=== PATIENT | female | born 1945 | race Caucasian/White ===

== ENCOUNTER 2016-06-15 09:01 | Outpatient (RCR) | payer MEDICARE, OTHER ==
--- OUTSIDE RECORDS SUMMARY | 2016-03-23 13:08 | XMS REPORT | Continuity of Care Document ---
Author Author [facility] Organization [facility] Address Unknown Phone Unavailable Care Team Providers Care Connie Scratcher Name Role Phone NEMESIO CAMACHO DO PCP Insurance Providers Payer Name Policy Number Subscriber Name Relationship [employer] Medicare [id number] Katja Saldaña 18 Self / Same As Patient Comm Crossover Enter Ins Name [id number] Katja Saldaña 18 Self / Same As Patient Advance Directives Directive Response Recorded Date/Time Advance Directives No 12/16/14 3:47pm Health Care Power of Office Support Clerk No 12/16/14 3:47pm Organ Donor No 12/16/14 3:47pm Resuscitation Status Full Code 12/16/14 3:47pm Problems No known problems or medical conditions. Medications Medication Dose Route Sig Days/Qty Instructions Order Date Discontinued Date Status Amoxicillin 1 Each PO THREE TIMES A DAY 30 Qty 04/13/09 02/27/11 Discontinued Benzonatate 100 Mg PO THREE TIMES A DAY 30 Qty 04/13/09 02/27/11 Discontinued HCTZ/Valsartan 2 Each PO DAILY 02/27/11 07/01/11 Discontinued Metoprolol Succinate (Toprol Xl) 50 Mg PO BEDTIME 02/27/11 01/22/13 Discontinued Estrogens,Conjugated 0.45 Mg PO DAILY 02/27/11 07/01/11 Discontinued Furosemide (Lasix) 20 Mg PO DAILY 02/27/11 01/22/13 Discontinued Rosuvastatin Calcium 20 Mg PO BEDTIME 02/27/11 01/22/13 Discontinued Paroxetine Hcl 20 Mg PO BEDTIME 02/27/11 01/22/13 Discontinued Tramadol Hcl 50 Mg PO EVERY 4HRS PRN 02/27/11 07/01/11 Discontinued Multivitamins 1 Tab PO DAILY 03/02/11 Active [place]-3/Dha/Epa/Fish Oil 1 Each PO TWICE A DAY 03/02/11 01/22/13 Discontinued Calcium Carbonate/Vitamin D3 1 Each PO DAILY 03/02/11 01/22/13 Discontinued Acetaminophen/Hydrocodone Bitart 1 - 2 Ea PO Q4HR PRN 40 Qty MAY TAKE 1 OR 2 TABS BY 03/03/11 07/01/11 Discontinued Valsartan 240 Mg PO DAILY 07/01/11 01/22/13 Discontinued Aspirin 81 Mg PO DAILY 07/01/11 Active Naproxen 1 Each PO TID PRN 20 Qty 10/27/12 01/22/13 Discontinued Rosuvastatin Calcium 40 Mg PO DAILY 01/22/13 Active Valsartan 320 Mg PO DAILY 01/22/13 12/16/14 Discontinued Calcitonin (Miacalcin) 1 [place] NS DAILY ALTERNATE NOSTRILS DAILY 12/16/14 Discontinued Paroxetine Hcl 20 Mg PO DAILY 01/22/13 Active Metoprolol Succinate 100 Mg PO BEDTIME 01/22/13 Active Furosemide 20 Mg PO DAILY 12/16/14 12/17/14 Discontinued Losartan/Hydrochlorothiazide 1 Tab PO DAILY 12/16/14 12/17/14 Discontinued Social History Social History Problem Response Recorded Date/Time Alcohol Use Denies Use 12/16/2014 3:29pm Recreational Drug Use No 12/16/2014 3:29pm Recent Foreign Travel No 12/16/2014 3:32pm Recent Infectious Disease Exposure No 12/16/2014 3:29pm Hospitalization with Isolation Denies 12/17/2014 9:37am Sexually Transmitted Disease No 12/16/2014 3:29pm Smoking Status Current Everyday Smoker 12/16/2014 3:43pm Do you dip or chew tobacco? No 12/16/2014 3:43pm Query Response Start Date Stop Date Smoking Status Current Everyday Smoker Hospital Discharge Instructions Patient Instructions Physician Instructions Plan of Care/Instructions/FU: Fwup 1week Activity as Tolerated: Yes Discharge Diet: Cardiac Diet Care Plan Patient Instructions:: Fwup 1week Plan of Care Discharge Date 12/17/14 9:26am Disposition 01 HOME, SELF-CARE Instructions/Education Provided Dehydration (GEN) Vertigo (ED) Forms Provided PDI Medical Prescriptions See Medications Section Referrals ORENDER,NEMESIO Melly FARLEY (Unspecified) 12/24/14 Address: [address] [place] [address] Reason(s) for Referral: 9:45AM Functional Status Query Response Date Recorded Comprehension Ability Understands Concepts December 16, 2014 8:10pm Allergies, Adverse Reactions, Alerts Allergen Type Severity Reaction Status Last Updated Oxycodone Allergy Mild Active 04/13/09 Immunizations Name Given Type Date of Pneumonia Vaccine 04/20/14 Historical Tetanus Booster (TDap) Unknown Historical Vital Signs Acute Vital Signs Vital Response Date/Time Temperature (Fahrenheit) 98.1 degrees F (97.6 - 99.5) Temperature (Calculated Celsius) 36.76836 degrees C (36.4 - 37.5) Temperature Source Temporal Pulse Rate (adult) 52 bpm (60 - 90) Respiratory Rate 18 bpm (12 - 24) O2 Sat by Pulse Oximetry 97 % (88 - 100) Blood Pressure 110/50 mm Hg Pain Pain Intensity 0 Height (Feet) 5 feet Height (Inches) 0.00 inches Height (Calculated Centimeters) 152.491663 cm Weight (Pounds) 113 pounds Weight (Ounces) 4.8 oz Weight (Calculated Grams) 44542.016 gm Weight (Calculated Kilograms) 51.591653 kilograms Calculated BMI 22.07 Results Laboratory Results Test Name Result Units Flags Reference Collection Date/Time Result Date/ Time Comments White Blood Count 6.2 10^3/uL 4.3-11.0 12/17/2014 4:07am 12/17/2014 4: 40am Red Blood Count 4.48 10^6/uL 4.35-5.85 12/17/2014 4:07am 12/17/2014 4: 40am Hemoglobin 13.3 G/DL 11.5-16.0 12/17/2014 4:07am 12/17/2014 4:40am Hematocrit 39 % 35-52 12/17/2014 4:07am 12/17/2014 4:40am Mean Corpuscular Volume 87 FL 80-99 12/17/2014 4:07am 12/17/2014 4: 40am Mean Corpuscular Hemoglobin 30 PG 25-34 12/17/2014 4:12/17/2014 4: 40am Mean Corpuscular Hemoglobin Concent 34 G/DL 32-36 12/17/2014 4: 4:40am Red Cell Distribution Width 13.3 % 10.0-14.5 12/17/2014 4:2014 4:40am Platelet Count 369 10^3/uL 130-400 12/17/2014 4:12/17/2014 4:40am Mean Platelet Volume 10.6 FL H 7.4-10.4 12/17/2014 4:12/17/2014 4: 40am Neutrophils (%) (Auto) 81 % H 42-75 12/17/2014 4:12/17/2014 4:40am Lymphocytes (%) (Auto) 18 % 12-44 12/17/2014 4:12/17/2014 4:40am Monocytes (%) (Auto) 1 % 0-12 12/17/2014 4:12/17/2014 4:40am Eosinophils (%) (Auto) 0 % 0-10 12/17/2014 4:12/17/2014 4:40am Basophils (%) (Auto) 0 % 0-10 12/17/2014 4:12/17/2014 4:40am Neutrophils # (Auto) 5.0 X 10^3 1.8-7.8 12/17/2014 4:12/17/2014 4: 40am Lymphocytes # (Auto) 1.1 X 10^3 1.0-4.0 12/17/2014 4:12/17/2014 4: 40am Monocytes # (Auto) 0.1 X 10^3 0.0-1.0 12/17/2014 4:12/17/2014 4: 40am Eosinophils # (Auto) 0.0 10^3/uL 0.0-0.3 12/17/2014 4:12/17/2014 4 :40am Basophils # (Auto) 0.0 10^3/uL 0.0-0.1 12/17/2014 4:12/17/2014 4: 40am Urine Color YELLOW 12/16/2014 10:10pm 12/16/2014 10:56pm Urine Clarity CLEAR 12/16/2014 10:10pm 12/16/2014 10:56pm Urine pH 6.5 5-9 12/16/2014 10:10pm 12/16/2014 10:56pm Urine Specific [place] 1.010 * 1.016-1.022 12/16/2014 10:10pm 2014 10:56pm Urine Protein NEGATIVE NEGATIVE 12/16/2014 10:10pm 12/16/2014 10: 56pm Urine Glucose (UA) NEGATIVE NEGATIVE 12/16/2014 10:10pm 12/16/2014 10 :56pm Urine RBC (Auto) NEGATIVE NEGATIVE 12/16/2014 10:10pm 12/16/2014 10: 56pm Urine Ketones NEGATIVE NEGATIVE 12/16/2014 10:10pm 12/16/2014 10: 56pm Urine Nitrite NEGATIVE NEGATIVE 12/16/2014 10:10pm 12/16/2014 10: 56pm Urine Bilirubin NEGATIVE NEGATIVE 12/16/2014 10:10pm 12/16/2014 10: 56pm Urine Urobilinogen NORMAL MG/DL NORMAL 12/16/2014 10:10pm 12/16/2014 10 :56pm Urine Leukocyte Esterase 1+ * NEGATIVE 12/16/2014 10:10pm 12/16/2014 10 :56pm Urine RBC NONE /HPF 12/16/2014 10:10pm 12/16/2014 10:56pm Urine WBC 0-2 /HPF 12/16/2014 10:10pm 12/16/2014 10:56pm Urine Bacteria TRACE /HPF 12/16/2014 10:10pm 12/16/2014 10:56pm Urine Squamous Epithelial Cells 0-2 /HPF 12/16/2014 10:102014 10:56pm Urine Crystals NONE /LPF 12/16/2014 10:1012/16/2014 10:56pm Urine Casts PRESENT /LPF 12/16/2014 10:10pm 12/16/2014 10:56pm Urine Hyaline Casts 5-10 /LPF * 12/16/2014 10:1012/16/2014 10:56pm Urine Mucus NEGATIVE /LPF 12/16/2014 10:10pm 12/16/2014 10:56pm Urine Culture Indicated NO 12/16/2014 10:10pm 12/16/2014 10:56pm Sodium Level 138 MMOL/L 135-145 12/17/2014 4:12/17/2014 5:03am Potassium Level 3.3 MMOL/L L 3.6-5.0 12/17/2014 4:12/17/2014 5:03am Chloride Level 103 MMOL/L 98-107 12/17/2014 4:12/17/2014 5:03am Carbon Dioxide Level 23 MMOL/L 21-32 12/17/2014 4:12/17/2014 5: 03am Blood Urea Nitrogen 28 MG/DL H 7-18 12/17/2014 4:12/17/2014 5:03am Creatinine 0.92 MG/DL 0.60-1.30 12/17/2014 4:12/17/2014 5:03am BUN/Creatinine Ratio 30 12/17/2014 4:12/17/2014 5:03am Estimat Glomerular Filtration Rate > 60 12/17/2014 4:2014 5:03am GFR INTERPRETIVE DATA UNITS FOR ESTIMATED GFR (eGFR): mL/min/1.73 M2 REFERENCE RANGE FOR ESTIMATED GFR (eGFR) eGFR NORMAL eGFR >60 MODERATELY DECREASED eGFR 30-59 SEVERLY DECREASED eGFR 15-29 KIDNEY FAILURE <15 (OR DIALYSIS) Glucose Level 145 MG/DL H 70-105 12/17/2014 4:12/17/2014 5:03am Calcium Level 9.3 MG/DL 8.5-10.1 12/17/2014 4:12/17/2014 5:03am Total Bilirubin 0.4 MG/DL 0.1-1.0 12/17/2014 4:12/17/2014 5:03am Alkaline Phosphatase 63 U/L 40-136 12/17/2014 4:12/17/2014 5:03am Aspartate Amino Transf (AST/SGOT) 21 U/L 5-34 12/17/2014 4:2014 5:03am Alanine Aminotransferase (ALT/SGPT) 18 U/L 0-55 12/17/2014 4:12/17 5:03am Total Protein 6.9 G/DL 6.4-8.2 12/17/2014 4:am 12/17/2014 5:03am Albumin 3.7 G/DL 3.2-4.5 12/17/2014 4:07am 12/17/2014 5:03am Thyroid Stimulating Hormone (TSH) 1.18 UIU/ML 0.35-4.94 12/16/2014 3: 22pm 12/16/2014 4:10pm Procedures No known history of procedures. Encounters Encounter Location Date/Time Discharged Inpatient Via [facility] 12/16/14 3:00pm
[2016-03-23 13:55] LABS: BASOPHILS % (AUTO) 1 % (0-10); EOSINOPHILS # (AUTO) 0.2 10^3/uL (0.0-0.3); EOSINOPHILS % (AUTO) 5 % (0-10); LYMPHOCYTES # (AUTO) 1.9 X 10^3 (1.0-4.0); LYMPHOCYTES % (AUTO) 55 % (12-44); MEAN CORPUSCULAR HEMOGLOBIN 28 PG (25-34); MEAN CORPUSCULAR HGB CONC 33 G/DL (32-36); MEAN CORPUSCULAR VOLUME 83 FL (80-99); MEAN PLATELET VOLUME 10.5 FL (7.4-10.4); MONOCYTES # (AUTO) 0.4 X 10^3 (0.0-1.0); MONOCYTES % (AUTO) 10 % (0-12); NEUTROPHILS % (AUTO) 29 % (42-75); PLATELET COUNT 159 10^3/uL (130-400); RED BLOOD COUNT 3.96 10^6/uL (4.35-5.85); RED CELL DISTRIBUTION WIDTH 16.9 % (10.0-14.5); WHITE BLOOD COUNT 3.5 10^3/uL (4.3-11.0)
[2016-03-23 14:28] LABS: ALBUMIN 3.9 G/DL (3.2-4.5); BILIRUBIN,TOTAL 0.5 MG/DL (0.1-1.0); CALCIUM 9.1 MG/DL (8.5-10.1); CREATININE SERUM 0.96 MG/DL (0.60-1.30); POTASSIUM 2.9 MMOL/L (3.6-5.0); TOTAL PROTEIN 6.6 G/DL (6.4-8.2)
[2016-03-30 13:18] LABS: BASOPHILS # (AUTO) 0.1 10^3/uL (0.0-0.1); BASOPHILS % (AUTO) 1 % (0-10); EOSINOPHILS # (AUTO) 0.3 10^3/uL (0.0-0.3); EOSINOPHILS % (AUTO) 5 % (0-10); LYMPHOCYTES # (AUTO) 2.3 X 10^3 (1.0-4.0); LYMPHOCYTES % (AUTO) 44 % (12-44); MEAN CORPUSCULAR HEMOGLOBIN 28 PG (25-34); MEAN CORPUSCULAR HGB CONC 33 G/DL (32-36); MEAN CORPUSCULAR VOLUME 84 FL (80-99); MEAN PLATELET VOLUME 9.7 FL (7.4-10.4); MONOCYTES # (AUTO) 0.9 X 10^3 (0.0-1.0); MONOCYTES % (AUTO) 17 % (0-12); NEUTROPHILS # (AUTO) 1.8 X 10^3 (1.8-7.8); NEUTROPHILS % (AUTO) 33 % (42-75); PLATELET COUNT 240 10^3/uL (130-400); RED BLOOD COUNT 3.81 10^6/uL (4.35-5.85); RED CELL DISTRIBUTION WIDTH 17.8 % (10.0-14.5); WHITE BLOOD COUNT 5.2 10^3/uL (4.3-11.0)
[2016-03-30 13:45] LABS: CALCIUM 8.6 MG/DL (8.5-10.1); CREATININE SERUM 1.25 MG/DL (0.60-1.30)
[2016-03-30 14:40] LABS: MAGNESIUM 2.2 MG/DL (1.8-2.4)
[2016-04-06 09:59] LABS: BASOPHILS % (AUTO) 1 % (0-10); EOSINOPHILS # (AUTO) 0.1 10^3/uL (0.0-0.3); EOSINOPHILS % (AUTO) 3 % (0-10); LYMPHOCYTES # (AUTO) 1.4 X 10^3 (1.0-4.0); LYMPHOCYTES % (AUTO) 38 % (12-44); MEAN CORPUSCULAR HEMOGLOBIN 27 PG (25-34); MEAN CORPUSCULAR HGB CONC 33 G/DL (32-36); MEAN CORPUSCULAR VOLUME 83 FL (80-99); MEAN PLATELET VOLUME 9.7 FL (7.4-10.4); MONOCYTES # (AUTO) 0.1 X 10^3 (0.0-1.0); MONOCYTES % (AUTO) 3 % (0-12); NEUTROPHILS % (AUTO) 56 % (42-75); PLATELET COUNT 112 10^3/uL (130-400); RED BLOOD COUNT 4.33 10^6/uL (4.35-5.85); RED CELL DISTRIBUTION WIDTH 18.1 % (10.0-14.5); WHITE BLOOD COUNT 3.6 10^3/uL (4.3-11.0)
[2016-04-06 10:32] LABS: CALCIUM 9.6 MG/DL (8.5-10.1); CREATININE SERUM 1.16 MG/DL (0.60-1.30); POTASSIUM 3.7 MMOL/L (3.6-5.0)
[2016-04-12 09:55] LABS: BASOPHILS % (AUTO) 1 % (0-10); EOSINOPHILS # (AUTO) 0.2 10^3/uL (0.0-0.3); EOSINOPHILS % (AUTO) 5 % (0-10); LYMPHOCYTES # (AUTO) 1.9 X 10^3 (1.0-4.0); LYMPHOCYTES % (AUTO) 53 % (12-44); MEAN CORPUSCULAR HEMOGLOBIN 27 PG (25-34); MEAN CORPUSCULAR HGB CONC 33 G/DL (32-36); MEAN CORPUSCULAR VOLUME 82 FL (80-99); MEAN PLATELET VOLUME 10.6 FL (7.4-10.4); MONOCYTES # (AUTO) 0.3 X 10^3 (0.0-1.0); MONOCYTES % (AUTO) 8 % (0-12); NEUTROPHILS # (AUTO) 1.2 X 10^3 (1.8-7.8); NEUTROPHILS % (AUTO) 33 % (42-75); PLATELET COUNT 110 10^3/uL (130-400); RED BLOOD COUNT 4.07 10^6/uL (4.35-5.85); RED CELL DISTRIBUTION WIDTH 18.1 % (10.0-14.5); WHITE BLOOD COUNT 3.5 10^3/uL (4.3-11.0)
[2016-04-12 10:27] LABS: ALBUMIN 3.4 G/DL (3.2-4.5); BILIRUBIN,TOTAL 0.4 MG/DL (0.1-1.0); CALCIUM 8.9 MG/DL (8.5-10.1); CREATININE SERUM 0.93 MG/DL (0.60-1.30); POTASSIUM 3.2 MMOL/L (3.6-5.0)
[2016-04-19 12:00] LABS: BASOPHILS % (AUTO) 1 % (0-10); EOSINOPHILS # (AUTO) 0.4 10^3/uL (0.0-0.3); EOSINOPHILS % (AUTO) 10 % (0-10); LYMPHOCYTES # (AUTO) 1.8 X 10^3 (1.0-4.0); LYMPHOCYTES % (AUTO) 50 % (12-44); MEAN CORPUSCULAR HEMOGLOBIN 27 PG (25-34); MEAN CORPUSCULAR HGB CONC 33 G/DL (32-36); MEAN CORPUSCULAR VOLUME 84 FL (80-99); MEAN PLATELET VOLUME 9.8 FL (7.4-10.4); MONOCYTES # (AUTO) 1.1 X 10^3 (0.0-1.0); MONOCYTES % (AUTO) 30 % (0-12); NEUTROPHILS # (AUTO) 0.3 X 10^3 (1.8-7.8); NEUTROPHILS % (AUTO) 9 % (42-75); PLATELET COUNT 293 10^3/uL (130-400); RED BLOOD COUNT 3.71 10^6/uL (4.35-5.85); WHITE BLOOD COUNT 3.6 10^3/uL (4.3-11.0)
[2016-04-19 12:29] LABS: ANION GAP 6 MMOL/L (5-14); BLOOD UREA NITROGEN 8 MG/DL (7-18); BUN/CREATININE RATIO 11; CALCIUM 8.6 MG/DL (8.5-10.1); CARBON DIOXIDE 28 MMOL/L (21-32); CHLORIDE 106 MMOL/L (98-107); CREATININE SERUM 0.75 MG/DL (0.60-1.30); GFR ESTIMATED > 60; GLUCOSE 100 MG/DL (70-105); POTASSIUM 3.1 MMOL/L (3.6-5.0); SODIUM 140 MMOL/L (135-145)
[2016-04-26 10:35] LABS: BASOPHILS % (AUTO) 1 % (0-10); EOSINOPHILS # (AUTO) 0.3 10^3/uL (0.0-0.3); EOSINOPHILS % (AUTO) 5 % (0-10); LYMPHOCYTES # (AUTO) 1.8 X 10^3 (1.0-4.0); LYMPHOCYTES % (AUTO) 33 % (12-44); MEAN CORPUSCULAR HEMOGLOBIN 27 PG (25-34); MEAN CORPUSCULAR HGB CONC 32 G/DL (32-36); MEAN CORPUSCULAR VOLUME 85 FL (80-99); MEAN PLATELET VOLUME 9.4 FL (7.4-10.4); MONOCYTES # (AUTO) 0.2 X 10^3 (0.0-1.0); MONOCYTES % (AUTO) 4 % (0-12); NEUTROPHILS # (AUTO) 3.2 X 10^3 (1.8-7.8); NEUTROPHILS % (AUTO) 58 % (42-75); PLATELET COUNT 213 10^3/uL (130-400); RED BLOOD COUNT 3.99 10^6/uL (4.35-5.85); RED CELL DISTRIBUTION WIDTH 18.4 % (10.0-14.5); WHITE BLOOD COUNT 5.6 10^3/uL (4.3-11.0)
[2016-04-26 11:22] LABS: ANION GAP 7 MMOL/L (5-14); BLOOD UREA NITROGEN 15 MG/DL (7-18); BUN/CREATININE RATIO 18; CALCIUM 9.7 MG/DL (8.5-10.1); CARBON DIOXIDE 24 MMOL/L (21-32); CHLORIDE 108 MMOL/L (98-107); CREATININE SERUM 0.85 MG/DL (0.60-1.30); GFR ESTIMATED > 60; GLUCOSE 95 MG/DL (70-105); SODIUM 139 MMOL/L (135-145)
[2016-05-03 10:45] LABS: BASOPHILS % (AUTO) 1 % (0-10); EOSINOPHILS # (AUTO) 0.2 10^3/uL (0.0-0.3); EOSINOPHILS % (AUTO) 5 % (0-10); LYMPHOCYTES # (AUTO) 1.7 X 10^3 (1.0-4.0); LYMPHOCYTES % (AUTO) 49 % (12-44); MEAN CORPUSCULAR HEMOGLOBIN 28 PG (25-34); MEAN CORPUSCULAR HGB CONC 33 G/DL (32-36); MEAN CORPUSCULAR VOLUME 85 FL (80-99); MEAN PLATELET VOLUME 10.6 FL (7.4-10.4); MONOCYTES # (AUTO) 0.4 X 10^3 (0.0-1.0); MONOCYTES % (AUTO) 11 % (0-12); NEUTROPHILS # (AUTO) 1.1 X 10^3 (1.8-7.8); NEUTROPHILS % (AUTO) 34 % (42-75); PLATELET COUNT 105 10^3/uL (130-400); RED BLOOD COUNT 3.73 10^6/uL (4.35-5.85); RED CELL DISTRIBUTION WIDTH 18.7 % (10.0-14.5); WHITE BLOOD COUNT 3.4 10^3/uL (4.3-11.0)
[2016-05-03 11:20] LABS: ALANINE AMINOTRANSFERASE 17 U/L (0-55); ALBUMIN 3.7 G/DL (3.2-4.5); ANION GAP 9 MMOL/L (5-14); ASPARTATE AMINO TRANSFERASE 27 U/L (5-34); BILIRUBIN,TOTAL 0.3 MG/DL (0.1-1.0); BLOOD UREA NITROGEN 11 MG/DL (7-18); BUN/CREATININE RATIO 13; CALCIUM 9.1 MG/DL (8.5-10.1); CARBON DIOXIDE 25 MMOL/L (21-32); CHLORIDE 106 MMOL/L (98-107); CREATININE SERUM 0.82 MG/DL (0.60-1.30); GFR ESTIMATED > 60; GLUCOSE 83 MG/DL (70-105); MAGNESIUM 2.1 MG/DL (1.8-2.4); POTASSIUM 3.6 MMOL/L (3.6-5.0); SODIUM 140 MMOL/L (135-145); TOTAL PROTEIN 6.3 G/DL (6.4-8.2)
[2016-05-10 09:13] LABS: BASOPHILS % (AUTO) 1 % (0-10); EOSINOPHILS # (AUTO) 0.4 10^3/uL (0.0-0.3); EOSINOPHILS % (AUTO) 11 % (0-10); LYMPHOCYTES # (AUTO) 1.9 X 10^3 (1.0-4.0); LYMPHOCYTES % (AUTO) 48 % (12-44); MEAN CORPUSCULAR HEMOGLOBIN 28 PG (25-34); MEAN CORPUSCULAR HGB CONC 33 G/DL (32-36); MEAN CORPUSCULAR VOLUME 84 FL (80-99); MEAN PLATELET VOLUME 10.3 FL (7.4-10.4); MONOCYTES # (AUTO) 0.3 X 10^3 (0.0-1.0); MONOCYTES % (AUTO) 9 % (0-12); NEUTROPHILS # (AUTO) 1.2 X 10^3 (1.8-7.8); NEUTROPHILS % (AUTO) 32 % (42-75); PLATELET COUNT 110 10^3/uL (130-400); RED CELL DISTRIBUTION WIDTH 18.5 % (10.0-14.5); WHITE BLOOD COUNT 3.9 10^3/uL (4.3-11.0)
[2016-05-10 09:44] LABS: CALCIUM 9.3 MG/DL (8.5-10.1); CREATININE SERUM 0.93 MG/DL (0.60-1.30)
[2016-05-17 10:03] LABS: BASOPHILS % (AUTO) 1 % (0-10); EOSINOPHILS # (AUTO) 0.2 10^3/uL (0.0-0.3); EOSINOPHILS % (AUTO) 4 % (0-10); LYMPHOCYTES # (AUTO) 1.6 X 10^3 (1.0-4.0); LYMPHOCYTES % (AUTO) 38 % (12-44); MEAN CORPUSCULAR HEMOGLOBIN 28 PG (25-34); MEAN CORPUSCULAR HGB CONC 34 G/DL (32-36); MEAN CORPUSCULAR VOLUME 84 FL (80-99); MEAN PLATELET VOLUME 10.9 FL (7.4-10.4); MONOCYTES # (AUTO) 0.6 X 10^3 (0.0-1.0); MONOCYTES % (AUTO) 15 % (0-12); NEUTROPHILS # (AUTO) 1.8 X 10^3 (1.8-7.8); NEUTROPHILS % (AUTO) 42 % (42-75); PLATELET COUNT 143 10^3/uL (130-400); RED BLOOD COUNT 3.87 10^6/uL (4.35-5.85); WHITE BLOOD COUNT 4.2 10^3/uL (4.3-11.0)
[2016-05-17 10:27] LABS: ALANINE AMINOTRANSFERASE 14 U/L (0-55); ALBUMIN 4.2 G/DL (3.2-4.5); ANION GAP 11 MMOL/L (5-14); ASPARTATE AMINO TRANSFERASE 29 U/L (5-34); BILIRUBIN,TOTAL 0.4 MG/DL (0.1-1.0); BLOOD UREA NITROGEN 10 MG/DL (7-18); BUN/CREATININE RATIO 12; CALCIUM 9.4 MG/DL (8.5-10.1); CARBON DIOXIDE 23 MMOL/L (21-32); CHLORIDE 105 MMOL/L (98-107); CREATININE SERUM 0.85 MG/DL (0.60-1.30); GFR ESTIMATED > 60; GLUCOSE 124 MG/DL (70-105); MAGNESIUM 2.2 MG/DL (1.8-2.4); POTASSIUM 2.9 MMOL/L (3.6-5.0); SODIUM 139 MMOL/L (135-145); TOTAL PROTEIN 7.2 G/DL (6.4-8.2)
[2016-05-24 10:06] LABS: BASOPHILS % (AUTO) 1 % (0-10); EOSINOPHILS # (AUTO) 0.2 10^3/uL (0.0-0.3); EOSINOPHILS % (AUTO) 5 % (0-10); LYMPHOCYTES # (AUTO) 1.5 X 10^3 (1.0-4.0); LYMPHOCYTES % (AUTO) 33 % (12-44); MEAN CORPUSCULAR HEMOGLOBIN 28 PG (25-34); MEAN CORPUSCULAR HGB CONC 33 G/DL (32-36); MEAN CORPUSCULAR VOLUME 86 FL (80-99); MEAN PLATELET VOLUME 10.7 FL (7.4-10.4); MONOCYTES # (AUTO) 0.2 X 10^3 (0.0-1.0); MONOCYTES % (AUTO) 4 % (0-12); NEUTROPHILS # (AUTO) 2.7 X 10^3 (1.8-7.8); NEUTROPHILS % (AUTO) 58 % (42-75); PLATELET COUNT 116 10^3/uL (130-400); RED BLOOD COUNT 3.77 10^6/uL (4.35-5.85); RED CELL DISTRIBUTION WIDTH 18.6 % (10.0-14.5); WHITE BLOOD COUNT 4.6 10^3/uL (4.3-11.0)
[2016-05-24 10:58] LABS: ANION GAP 8 MMOL/L (5-14); BLOOD UREA NITROGEN 10 MG/DL (7-18); BUN/CREATININE RATIO 13; CALCIUM 9.1 MG/DL (8.5-10.1); CARBON DIOXIDE 24 MMOL/L (21-32); CHLORIDE 110 MMOL/L (98-107); CREATININE SERUM 0.79 MG/DL (0.60-1.30); GFR ESTIMATED > 60; GLUCOSE 100 MG/DL (70-105); SODIUM 142 MMOL/L (135-145)
[2016-06-01 10:19] LABS: BASOPHILS % (AUTO) 1 % (0-10); EOSINOPHILS # (AUTO) 0.1 10^3/uL (0.0-0.3); EOSINOPHILS % (AUTO) 4 % (0-10); LYMPHOCYTES # (AUTO) 1.6 X 10^3 (1.0-4.0); LYMPHOCYTES % (AUTO) 55 % (12-44); MEAN CORPUSCULAR HEMOGLOBIN 28 PG (25-34); MEAN CORPUSCULAR HGB CONC 32 G/DL (32-36); MEAN CORPUSCULAR VOLUME 88 FL (80-99); MEAN PLATELET VOLUME 9.9 FL (7.4-10.4); MONOCYTES # (AUTO) 0.4 X 10^3 (0.0-1.0); MONOCYTES % (AUTO) 15 % (0-12); NEUTROPHILS # (AUTO) 0.7 X 10^3 (1.8-7.8); NEUTROPHILS % (AUTO) 25 % (42-75); PLATELET COUNT 158 10^3/uL (130-400); RED BLOOD COUNT 3.99 10^6/uL (4.35-5.85); RED CELL DISTRIBUTION WIDTH 19.7 % (10.0-14.5); WHITE BLOOD COUNT 2.9 10^3/uL (4.3-11.0)
[2016-06-01 10:45] LABS: ALANINE AMINOTRANSFERASE 20 U/L (0-55); ALBUMIN 4.1 G/DL (3.2-4.5); ANION GAP 9 MMOL/L (5-14); ASPARTATE AMINO TRANSFERASE 31 U/L (5-34); BILIRUBIN,TOTAL 0.4 MG/DL (0.1-1.0); BLOOD UREA NITROGEN 11 MG/DL (7-18); BUN/CREATININE RATIO 12; CALCIUM 9.4 MG/DL (8.5-10.1); CARBON DIOXIDE 22 MMOL/L (21-32); CHLORIDE 107 MMOL/L (98-107); CREATININE SERUM 0.89 MG/DL (0.60-1.30); GFR ESTIMATED > 60; GLUCOSE 94 MG/DL (70-105); MAGNESIUM 2.2 MG/DL (1.8-2.4); POTASSIUM 3.8 MMOL/L (3.6-5.0); SODIUM 138 MMOL/L (135-145); TOTAL PROTEIN 7.3 G/DL (6.4-8.2)
[2016-06-07 09:11] LABS: BASOPHILS % (AUTO) 0 % (0-10); EOSINOPHILS # (AUTO) 0.2 10^3/uL (0.0-0.3); EOSINOPHILS % (AUTO) 5 % (0-10); LYMPHOCYTES # (AUTO) 1.7 X 10^3 (1.0-4.0); LYMPHOCYTES % (AUTO) 33 % (12-44); MEAN CORPUSCULAR HEMOGLOBIN 29 PG (25-34); MEAN CORPUSCULAR HGB CONC 33 G/DL (32-36); MEAN CORPUSCULAR VOLUME 89 FL (80-99); MEAN PLATELET VOLUME 10.1 FL (7.4-10.4); MONOCYTES # (AUTO) 0.7 X 10^3 (0.0-1.0); MONOCYTES % (AUTO) 14 % (0-12); NEUTROPHILS # (AUTO) 2.4 X 10^3 (1.8-7.8); NEUTROPHILS % (AUTO) 48 % (42-75); PLATELET COUNT 184 10^3/uL (130-400); RED CELL DISTRIBUTION WIDTH 19.2 % (10.0-14.5)
[2016-06-07 09:31] LABS: ANION GAP 7 MMOL/L (5-14); BLOOD UREA NITROGEN 9 MG/DL (7-18); BUN/CREATININE RATIO 11; CALCIUM 9.1 MG/DL (8.5-10.1); CARBON DIOXIDE 22 MMOL/L (21-32); CHLORIDE 110 MMOL/L (98-107); CREATININE SERUM 0.81 MG/DL (0.60-1.30); GFR ESTIMATED > 60; GLUCOSE 117 MG/DL (70-105); POTASSIUM 4.1 MMOL/L (3.6-5.0); SODIUM 139 MMOL/L (135-145)
[~2016-06-15] VITALS: Ht 152.4 cm; Wt 48.1 kg
[~2016-06-15 09:01] MED LIST: ACET-789 PO; AMOX500C2 PO; ASP81TEC PO; BENZ100C8 PO; CALC-80 PO; CALC3.7S2 NS; CEFU500T PO; CRESTOR40 MG PO; D5W 500 ML IV (CANCER CTR) 500 ML IV SCH; D5W IV SCH; ESTR0.455 PO; FAMOTIDINE 20MG/2ML IV (CANCER CTR) IV SCH; FLUOROURACIL 400 MG in SYRINGE-IVPB 1 SYRINGE IV SCH; FLUOROURACIL IV SCH; FOSAPREPITANT 150 MG/NS 150 MG IVPB (CANCER CTR) IV PRN; FRSM20T PO; FURO-125 PO; FURO20TA4 PO; HYDR-34 PO; HYDR-3583 PO; HYDR-3730 PO; LEUCOVORIN CALCIUM 400 MG in D5W 250 ML IVPB (CANCER CTR) 250 ML IV SCH; LEUCOVORIN CALCIUM IV SCH; LORazepam 0.5 MG (ATIVAN) TABLET CANCER CTR PO PRN; LOSA1TAB15 PO; LOSA1TAB70 PO; LOSA25TA21 PO; METO-272 PO; MTP100TCR PO; MULT-608 PO; NAPR-243 PO; NS IV 1000 ML (CANCER CTR) 1,000 ML ONE; OMEG-12 PO; OXALIPLATIN 100 MG in D5W 250 ML IVPB (CANCER CTR) 250 ML IV SCH; OXALIPLATIN 100 MG, OXALIPLATIN (GENERIC) 10 MG in D5W 250 ML IVPB (CANCER CTR) 250 ML IV SCH; OXALIPLATIN 100 MG, OXALIPLATIN (GENERIC) 20 MG in D5W 250 ML IVPB (CANCER CTR) 250 ML IV SCH; PALONOSETRON 0.25 MG, DEXAMETHASONE 10 MG/NS 50 ML IVPB IV PRN; PANT40TA2 PO; PARO20TA57 PO; ROSU20TA14 PO; TRAM50TA2 PO; VALS1TAB48 PO; VALS320T8 PO; VALS80TA PO
[2016-06-15 09:20] LABS: BASOPHILS % (AUTO) 0 % (0-10); EOSINOPHILS # (AUTO) 0.1 10^3/uL (0.0-0.3); EOSINOPHILS % (AUTO) 1 % (0-10); LYMPHOCYTES # (AUTO) 1.9 X 10^3 (1.0-4.0); LYMPHOCYTES % (AUTO) 14 % (12-44); MEAN CORPUSCULAR HEMOGLOBIN 29 PG (25-34); MEAN CORPUSCULAR HGB CONC 32 G/DL (32-36); MEAN CORPUSCULAR VOLUME 89 FL (80-99); MEAN PLATELET VOLUME 11.1 FL (7.4-10.4); MONOCYTES # (AUTO) 0.4 X 10^3 (0.0-1.0); MONOCYTES % (AUTO) 3 % (0-12); NEUTROPHILS # (AUTO) 10.7 X 10^3 (1.8-7.8); NEUTROPHILS % (AUTO) 82 % (42-75); PLATELET COUNT 147 10^3/uL (130-400); RED BLOOD COUNT 3.74 10^6/uL (4.35-5.85); RED CELL DISTRIBUTION WIDTH 18.3 % (10.0-14.5)
[2016-06-15 09:33] LABS: ANION GAP 9 MMOL/L (5-14); BLOOD UREA NITROGEN 18 MG/DL (7-18); BUN/CREATININE RATIO 22; CALCIUM 9.1 MG/DL (8.5-10.1); CARBON DIOXIDE 20 MMOL/L (21-32); CHLORIDE 109 MMOL/L (98-107); CREATININE SERUM 0.81 MG/DL (0.60-1.30); GFR ESTIMATED > 60; GLUCOSE 104 MG/DL (70-105); POTASSIUM 4.3 MMOL/L (3.6-5.0); SODIUM 138 MMOL/L (135-145)
== END 2016-06-21 | disposition home or self-care (01) ==
LOC: ONC 09:01
PROVIDERS: ATTEND Internal Medicine Hematology & Oncology
DX: Z51.11 Encounter for antineoplastic chemotherapy (principal); C18.2 Malignant neoplasm of ascending colon; R91.8 Other nonspecific abnormal finding of lung field; D64.9 Anemia, unspecified; Z72.0 Tobacco use; Z79.899 Other long term (current) drug therapy
CPT/HCPCS: 36415; 36591; 80048; 80053; 83735; 85025; 96360; 96361; 96367; 96368; 96375; 96411; 96413; 96415; 96521; 99213

== ENCOUNTER → 2016-08-30 | Outpatient (CLI) | payer MEDICARE, OTHER ==
[~2016-08-30] MED LIST changes: +BARIUM SUSPENSION 2.1% (VANILLA SILQ) 450 ML PO ONE; +CATHETER FLUSH 10 ML SYR IV PRN; -D5W 500 ML IV (CANCER CTR) 500 ML IV SCH; -D5W IV SCH; -FAMOTIDINE 20MG/2ML IV (CANCER CTR) IV SCH; -FLUOROURACIL 400 MG in SYRINGE-IVPB 1 SYRINGE IV SCH; -FLUOROURACIL IV SCH; -FOSAPREPITANT 150 MG/NS 150 MG IVPB (CANCER CTR) IV PRN; +IOHEXOL 350 MG/ML 100 ML (OMNIPAQUE 350) VIAL IV ONE; -LEUCOVORIN CALCIUM 400 MG in D5W 250 ML IVPB (CANCER CTR) 250 ML IV SCH; -LEUCOVORIN CALCIUM IV SCH; -LORazepam 0.5 MG (ATIVAN) TABLET CANCER CTR PO PRN; +NS 100 ML (IVPB) BAG IV ONE; -NS IV 1000 ML (CANCER CTR) 1,000 ML ONE; -OXALIPLATIN 100 MG in D5W 250 ML IVPB (CANCER CTR) 250 ML IV SCH; -OXALIPLATIN 100 MG, OXALIPLATIN (GENERIC) 10 MG in D5W 250 ML IVPB (CANCER CTR) 250 ML IV SCH; -OXALIPLATIN 100 MG, OXALIPLATIN (GENERIC) 20 MG in D5W 250 ML IVPB (CANCER CTR) 250 ML IV SCH; -PALONOSETRON 0.25 MG, DEXAMETHASONE 10 MG/NS 50 ML IVPB IV PRN
--- OUTSIDE RECORDS SUMMARY | 2016-08-30 08:54 | XMS REPORT | Continuity of Care Document ---
Author Author [facility] Organization [facility] Address Unknown Phone Unavailable Care Team Providers Care Horse Shoer Name Role Phone NEMESIO CAMACHO DO PCP Insurance Providers Payer Name Policy Number Subscriber Name Relationship Wps Medicare [id number] Katja Saldaña 18 Self / Same As Patient Comm Crossover Enter Ins Name [id number] Katja Saldaña 18 Self / Same As Patient Advance Directives Directive Response Recorded Date/Time Advance Directives No 12/16/14 3:47pm Health Care Power of Automatic Dry Starch Operator No 12/16/14 3:47pm Organ Donor No 12/16/14 [...] Multivitamins 1 Tab PO DAILY 03/02/11 Active [place]-3/Dha/Epa/Fish Oil 1 Each PO TWICE A DAY [...] DAILY 01/22/13 12/16/14 Discontinued Calcitonin (Miacalcin) 1 [place] NS DAILY ALTERNATE NOSTRILS DAILY 12/16/14 Discontinued [...] Referrals ORENDER,NEMESIO Melly FARLEY (Unspecified) 12/24/14 Address: [address] [place] [address] Reason(s) for Referral: 9:45AM Functional Status [...] F (97.6 - 99.5) Temperature (Calculated Celsius) 36.34165 degrees C (36.4 - 37.5) Temperature Source Temporal Pulse Rate (adult) 52 bpm (60 - 90) Respiratory Rate 18 bpm (12 - 24) O2 Sat by Pulse Oximetry 97 % (88 - 100) Blood Pressure 110/50 mm Hg Pain Pain Intensity 0 Height (Feet) 5 feet Height (Inches) 0.00 inches Height (Calculated Centimeters) 152.107254 cm Weight (Pounds) 113 pounds Weight (Ounces) 4.8 oz Weight (Calculated Grams) 23694.016 gm Weight (Calculated Kilograms) 51.782906 kilograms Calculated BMI 22.07 Results Laboratory Results [...] 5-9 12/16/2014 10:10pm 12/16/2014 10:56pm Urine Specific [place] 1.010 * 1.016-1.022 12/16/2014 10:10pm 2014 10:56pm [...] Encounters Encounter Location Date/Time Discharged Inpatient Via [facility] 12/16/14 3:00pm
--- NOTE | 2016-08-30 13:37 | Diagnostic Imaging Report ---
PROCEDURE: CT chest, abdomen, and pelvis with contrast. TECHNIQUE: Multiple contiguous axial images were obtained through the chest, abdomen, and pelvis after the administration of intravenous contrast. INDICATION: Colon cancer. Followup pulmonary nodules. COMPARISON: 06/03/16. FINDINGS: There are numerous bilateral pulmonary nodules measuring up to 5 mm in size without significant change from 06/03/2016 exam. There is no significant consolidation or mass that have developed. There is no pleural effusion. The mediastinum demonstrates no mass or significantly enlarged lymph nodes. No lymphadenopathy in the edmundo or in the axilla is seen on either side. The heart size is normal. No pericardial or pleural effusion. The thoracic aorta is normal in caliber. Evidence of prior right shoulder surgery with an anchor seen in the right humeral head is seen. The osseous structures appear grossly unremarkable. There is an infusion port along the chest wall terminating in the lower SVC level. CT abdomen and pelvis: The liver, the spleen, the adrenal glands, and the pancreas appear unremarkable. Cholecystectomy clips are seen. When compared to the previous exam, a previously seen hyperenhancing lesion in the central anterior aspect of the liver was seen. This is occult on the current exam and is likely a hyperperfused portion of the liver from vascular shunting or flash-filling hemangioma that becomes isointense to the rest of the liver on delayed phase imaging. The kidneys have symmetric enhancement and contrast excretion. There is no hydronephrosis. There is an aortic biiliac graft appears to be present and is patent. There is a 0.7 cm left para-aortic lymph nodes compared to 1 cm measurement on the prior exam. No significantly enlarged lymph nodes are seen. In the pelvis, there is suggestion of prior hysterectomy. There is no fluid collection or mass. The osseous structures appear grossly unremarkable. IMPRESSION: CT chest: Numerous bilateral nonspecific pulmonary nodules measuring up to 5 mm in size without significant change. CT abdomen and pelvis: 1. The previously seen enhancing lesion in the central anterior aspect of the liver is not visible on the current exam. It could be related to perfusional abnormality or flash-filling hemangioma, and is less likely a resolved metastasis. 2. Subcentimeter para-aortic lymph nodes smaller compared to the prior study. No significantly enlarged lymph nodes or suspicious mass in the abdomen or pelvis seen at this time. Dictated by: Dictated on workstation # [id number]
== END ==
LOC: RAD 08:50
PROVIDERS: ATTEND Nurse Practitioner Adult Health
DX: C18.2 Malignant neoplasm of ascending colon (principal); R91.8 Other nonspecific abnormal finding of lung field
CPT/HCPCS: 71260; 74177

== ENCOUNTER 2016-09-13 13:57 | Outpatient (RCR) | payer MEDICARE, OTHER ==
--- OUTSIDE RECORDS SUMMARY | 2016-06-23 10:02 | XMS REPORT | Continuity of Care Document ---
Author Author [facility] Organization [facility] Address Unknown Phone Unavailable Care Team Providers Care Finish Painter Name Role Phone NEMESIO CAMACHO DO PCP Insurance Providers Payer Name Policy Number Subscriber Name Relationship W[employer] Medicare [id number] Katja Saldaña 18 Self / Same As Patient Comm Crossover Enter Ins Name [id number] Katja Saldaña 18 Self / Same As Patient Advance Directives Directive Response Recorded Date/Time Advance Directives No 12/16/14 3:47pm Health Care Power of Tutoring Assistant No 12/16/14 3:47pm Organ Donor No 12/16/14 [...] Multivitamins 1 Tab PO DAILY 03/02/11 Active [place]-3/Dha/Epa/Fish Oil 1 Each PO TWICE A DAY [...] DAILY 01/22/13 12/16/14 Discontinued Calcitonin (Miacalcin) 1 [place] NS DAILY ALTERNATE NOSTRILS DAILY 12/16/14 Discontinued [...] Prescriptions See Medications Section Referrals ORENDER,NEMESIO Melly FRALEY (Unspecified) 12/24/14 Address: [address] [place] [address] Reason(s) for Referral: 9:45AM Functional Status [...] F (97.6 - 99.5) Temperature (Calculated Celsius) 36.27524 degrees C (36.4 - 37.5) Temperature Source Temporal Pulse Rate (adult) 52 bpm (60 - 90) Respiratory Rate 18 bpm (12 - 24) O2 Sat by Pulse Oximetry 97 % (88 - 100) Blood Pressure 110/50 mm Hg Pain Pain Intensity 0 Height (Feet) 5 feet Height (Inches) 0.00 inches Height (Calculated Centimeters) 152.825358 cm Weight (Pounds) 113 pounds Weight (Ounces) 4.8 oz Weight (Calculated Grams) 42829.016 gm Weight (Calculated Kilograms) 51.210876 kilograms Calculated BMI 22.07 Results Laboratory Results [...] 5-9 12/16/2014 10:10pm 12/16/2014 10:56pm Urine Specific [place] 1.010 * 1.016-1.022 12/16/2014 10:10pm 2014 10:56pm [...] Encounters Encounter Location Date/Time Discharged Inpatient Via [facility] 12/16/14 3:00pm
[2016-06-23 10:04] LABS: BASOPHILS % (AUTO) 1 % (0-10); EOSINOPHILS # (AUTO) 0.2 10^3/uL (0.0-0.3); EOSINOPHILS % (AUTO) 5 % (0-10); LYMPHOCYTES # (AUTO) 1.4 X 10^3 (1.0-4.0); LYMPHOCYTES % (AUTO) 37 % (12-44); MEAN CORPUSCULAR HEMOGLOBIN 29 PG (25-34); MEAN CORPUSCULAR HGB CONC 32 G/DL (32-36); MEAN CORPUSCULAR VOLUME 90 FL (80-99); MEAN PLATELET VOLUME 9.7 FL (7.4-10.4); MONOCYTES # (AUTO) 0.6 X 10^3 (0.0-1.0); MONOCYTES % (AUTO) 16 % (0-12); NEUTROPHILS # (AUTO) 1.6 X 10^3 (1.8-7.8); NEUTROPHILS % (AUTO) 42 % (42-75); PLATELET COUNT 163 10^3/uL (130-400); RED BLOOD COUNT 3.73 10^6/uL (4.35-5.85); RED CELL DISTRIBUTION WIDTH 18.5 % (10.0-14.5); WHITE BLOOD COUNT 3.8 10^3/uL (4.3-11.0)
[2016-06-23 10:32] LABS: BILIRUBIN,TOTAL 0.3 MG/DL (0.1-1.0); CALCIUM 9.5 MG/DL (8.5-10.1); CREATININE SERUM 0.98 MG/DL (0.60-1.30); MAGNESIUM 2.4 MG/DL (1.8-2.4); POTASSIUM 3.7 MMOL/L (3.6-5.0); TOTAL PROTEIN 7.1 G/DL (6.4-8.2)
[2016-06-30 10:01] LABS: BASOPHILS % (AUTO) 1 % (0-10); EOSINOPHILS # (AUTO) 0.2 10^3/uL (0.0-0.3); EOSINOPHILS % (AUTO) 3 % (0-10); LYMPHOCYTES # (AUTO) 1.7 X 10^3 (1.0-4.0); LYMPHOCYTES % (AUTO) 32 % (12-44); MEAN CORPUSCULAR HEMOGLOBIN 29 PG (25-34); MEAN CORPUSCULAR HGB CONC 33 G/DL (32-36); MEAN CORPUSCULAR VOLUME 89 FL (80-99); MEAN PLATELET VOLUME 9.6 FL (7.4-10.4); MONOCYTES # (AUTO) 0.4 X 10^3 (0.0-1.0); MONOCYTES % (AUTO) 8 % (0-12); NEUTROPHILS % (AUTO) 56 % (42-75); PLATELET COUNT 169 10^3/uL (130-400); RED BLOOD COUNT 4.07 10^6/uL (4.35-5.85); RED CELL DISTRIBUTION WIDTH 17.4 % (10.0-14.5); WHITE BLOOD COUNT 5.3 10^3/uL (4.3-11.0)
[2016-06-30 11:00] LABS: CALCIUM 9.9 MG/DL (8.5-10.1); CREATININE SERUM 0.98 MG/DL (0.60-1.30); POTASSIUM 4.1 MMOL/L (3.6-5.0)
[2016-07-06 11:13] LABS: BASOPHILS % (AUTO) 1 % (0-10); EOSINOPHILS # (AUTO) 0.1 10^3/uL (0.0-0.3); EOSINOPHILS % (AUTO) 2 % (0-10); LYMPHOCYTES # (AUTO) 1.5 X 10^3 (1.0-4.0); LYMPHOCYTES % (AUTO) 32 % (12-44); MEAN CORPUSCULAR HEMOGLOBIN 29 PG (25-34); MEAN CORPUSCULAR HGB CONC 33 G/DL (32-36); MEAN CORPUSCULAR VOLUME 89 FL (80-99); MEAN PLATELET VOLUME 9.8 FL (7.4-10.4); MONOCYTES # (AUTO) 0.5 X 10^3 (0.0-1.0); MONOCYTES % (AUTO) 11 % (0-12); NEUTROPHILS # (AUTO) 2.6 X 10^3 (1.8-7.8); NEUTROPHILS % (AUTO) 54 % (42-75); PLATELET COUNT 104 10^3/uL (130-400); RED BLOOD COUNT 3.68 10^6/uL (4.35-5.85); RED CELL DISTRIBUTION WIDTH 17.6 % (10.0-14.5); WHITE BLOOD COUNT 4.8 10^3/uL (4.3-11.0)
[2016-07-06 11:39] LABS: ALANINE AMINOTRANSFERASE 14 U/L (0-55); ANION GAP 10 MMOL/L (5-14); ASPARTATE AMINO TRANSFERASE 23 U/L (5-34); BILIRUBIN,TOTAL 0.3 MG/DL (0.1-1.0); BLOOD UREA NITROGEN 13 MG/DL (7-18); BUN/CREATININE RATIO 16; CALCIUM 9.2 MG/DL (8.5-10.1); CARBON DIOXIDE 25 MMOL/L (21-32); CHLORIDE 106 MMOL/L (98-107); CREATININE SERUM 0.82 MG/DL (0.60-1.30); GFR ESTIMATED > 60; GLUCOSE 98 MG/DL (70-105); MAGNESIUM 2.2 MG/DL (1.8-2.4); POTASSIUM 3.1 MMOL/L (3.6-5.0); SODIUM 141 MMOL/L (135-145); TOTAL PROTEIN 6.7 G/DL (6.4-8.2)
[2016-07-13 09:19] LABS: BASOPHILS % (AUTO) 0 % (0-10); EOSINOPHILS # (AUTO) 0.2 10^3/uL (0.0-0.3); EOSINOPHILS % (AUTO) 5 % (0-10); LYMPHOCYTES # (AUTO) 1.5 X 10^3 (1.0-4.0); LYMPHOCYTES % (AUTO) 49 % (12-44); MEAN CORPUSCULAR HEMOGLOBIN 30 PG (25-34); MEAN CORPUSCULAR HGB CONC 33 G/DL (32-36); MEAN CORPUSCULAR VOLUME 90 FL (80-99); MEAN PLATELET VOLUME 9.7 FL (7.4-10.4); MONOCYTES # (AUTO) 0.3 X 10^3 (0.0-1.0); MONOCYTES % (AUTO) 10 % (0-12); NEUTROPHILS % (AUTO) 35 % (42-75); PLATELET COUNT 95 10^3/uL (130-400); RED BLOOD COUNT 3.66 10^6/uL (4.35-5.85); RED CELL DISTRIBUTION WIDTH 17.4 % (10.0-14.5); WHITE BLOOD COUNT 2.9 10^3/uL (4.3-11.0)
[2016-07-13 09:58] LABS: ANION GAP 9 MMOL/L (5-14); BLOOD UREA NITROGEN 11 MG/DL (7-18); BUN/CREATININE RATIO 13; CALCIUM 8.9 MG/DL (8.5-10.1); CARBON DIOXIDE 23 MMOL/L (21-32); CHLORIDE 107 MMOL/L (98-107); CREATININE SERUM 0.84 MG/DL (0.60-1.30); GFR ESTIMATED > 60; GLUCOSE 87 MG/DL (70-105); POTASSIUM 4.1 MMOL/L (3.6-5.0); SODIUM 139 MMOL/L (135-145)
[2016-07-19 11:33] LABS: BASOPHILS % (AUTO) 0 % (0-10); EOSINOPHILS # (AUTO) 0.2 10^3/uL (0.0-0.3); EOSINOPHILS % (AUTO) 3 % (0-10); LYMPHOCYTES # (AUTO) 1.6 X 10^3 (1.0-4.0); LYMPHOCYTES % (AUTO) 34 % (12-44); MEAN CORPUSCULAR HEMOGLOBIN 29 PG (25-34); MEAN CORPUSCULAR HGB CONC 33 G/DL (32-36); MEAN CORPUSCULAR VOLUME 88 FL (80-99); MEAN PLATELET VOLUME 10.5 FL (7.4-10.4); MONOCYTES # (AUTO) 0.6 X 10^3 (0.0-1.0); MONOCYTES % (AUTO) 12 % (0-12); NEUTROPHILS # (AUTO) 2.4 X 10^3 (1.8-7.8); NEUTROPHILS % (AUTO) 51 % (42-75); PLATELET COUNT 132 10^3/uL (130-400); RED BLOOD COUNT 3.81 10^6/uL (4.35-5.85); RED CELL DISTRIBUTION WIDTH 17.1 % (10.0-14.5); WHITE BLOOD COUNT 4.7 10^3/uL (4.3-11.0)
[2016-07-19 11:54] LABS: ALANINE AMINOTRANSFERASE 17 U/L (0-55); ANION GAP 9 MMOL/L (5-14); ASPARTATE AMINO TRANSFERASE 24 U/L (5-34); BILIRUBIN,TOTAL 0.3 MG/DL (0.1-1.0); BLOOD UREA NITROGEN 11 MG/DL (7-18); BUN/CREATININE RATIO 13; CALCIUM 9.1 MG/DL (8.5-10.1); CARBON DIOXIDE 22 MMOL/L (21-32); CHLORIDE 107 MMOL/L (98-107); CREATININE SERUM 0.88 MG/DL (0.60-1.30); GFR ESTIMATED > 60; GLUCOSE 114 MG/DL (70-105); MAGNESIUM 2.2 MG/DL (1.8-2.4); POTASSIUM 3.6 MMOL/L (3.6-5.0); SODIUM 138 MMOL/L (135-145); TOTAL PROTEIN 6.8 G/DL (6.4-8.2)
[2016-07-26 09:49] LABS: BASOPHILS % (AUTO) 1 % (0-10); EOSINOPHILS # (AUTO) 0.1 10^3/uL (0.0-0.3); EOSINOPHILS % (AUTO) 2 % (0-10); LYMPHOCYTES % (AUTO) 50 % (12-44); MEAN CORPUSCULAR HEMOGLOBIN 29 PG (25-34); MEAN CORPUSCULAR HGB CONC 33 G/DL (32-36); MEAN CORPUSCULAR VOLUME 89 FL (80-99); MEAN PLATELET VOLUME 9.7 FL (7.4-10.4); MONOCYTES # (AUTO) 0.6 X 10^3 (0.0-1.0); MONOCYTES % (AUTO) 14 % (0-12); NEUTROPHILS # (AUTO) 1.3 X 10^3 (1.8-7.8); NEUTROPHILS % (AUTO) 33 % (42-75); PLATELET COUNT 177 10^3/uL (130-400); RED BLOOD COUNT 4.02 10^6/uL (4.35-5.85); RED CELL DISTRIBUTION WIDTH 16.9 % (10.0-14.5)
[2016-07-26 11:17] LABS: ANION GAP 10 MMOL/L (5-14); BLOOD UREA NITROGEN 12 MG/DL (7-18); BUN/CREATININE RATIO 14; CALCIUM 9.5 MG/DL (8.5-10.1); CARBON DIOXIDE 25 MMOL/L (21-32); CHLORIDE 104 MMOL/L (98-107); CREATININE SERUM 0.84 MG/DL (0.60-1.30); GFR ESTIMATED > 60; GLUCOSE 102 MG/DL (70-105); POTASSIUM 3.2 MMOL/L (3.6-5.0); SODIUM 139 MMOL/L (135-145)
[2016-08-02 14:02] LABS: BASOPHILS % (AUTO) 1 % (0-10); EOSINOPHILS # (AUTO) 0.2 10^3/uL (0.0-0.3); EOSINOPHILS % (AUTO) 3 % (0-10); LYMPHOCYTES # (AUTO) 2.1 X 10^3 (1.0-4.0); LYMPHOCYTES % (AUTO) 33 % (12-44); MEAN CORPUSCULAR HEMOGLOBIN 29 PG (25-34); MEAN CORPUSCULAR HGB CONC 33 G/DL (32-36); MEAN CORPUSCULAR VOLUME 89 FL (80-99); MEAN PLATELET VOLUME 9.5 FL (7.4-10.4); MONOCYTES # (AUTO) 0.8 X 10^3 (0.0-1.0); MONOCYTES % (AUTO) 12 % (0-12); NEUTROPHILS # (AUTO) 3.4 X 10^3 (1.8-7.8); NEUTROPHILS % (AUTO) 52 % (42-75); PLATELET COUNT 152 10^3/uL (130-400); RED BLOOD COUNT 3.73 10^6/uL (4.35-5.85); RED CELL DISTRIBUTION WIDTH 17.5 % (10.0-14.5); WHITE BLOOD COUNT 6.5 10^3/uL (4.3-11.0)
[2016-08-02 14:25] LABS: ALANINE AMINOTRANSFERASE 11 U/L (0-55); ALBUMIN 3.9 G/DL (3.2-4.5); ANION GAP 9 MMOL/L (5-14); ASPARTATE AMINO TRANSFERASE 21 U/L (5-34); BILIRUBIN,TOTAL 0.4 MG/DL (0.1-1.0); BLOOD UREA NITROGEN 10 MG/DL (7-18); BUN/CREATININE RATIO 11; CALCIUM 9.2 MG/DL (8.5-10.1); CARBON DIOXIDE 25 MMOL/L (21-32); CHLORIDE 105 MMOL/L (98-107); CREATININE SERUM 0.89 MG/DL (0.60-1.30); GFR ESTIMATED > 60; GLUCOSE 116 MG/DL (70-105); MAGNESIUM 2.1 MG/DL (1.8-2.4); POTASSIUM 3.6 MMOL/L (3.6-5.0); SODIUM 139 MMOL/L (135-145); TOTAL PROTEIN 6.7 G/DL (6.4-8.2)
[2016-08-09 09:08] LABS: BASOPHILS % (AUTO) 1 % (0-10); EOSINOPHILS # (AUTO) 0.2 10^3/uL (0.0-0.3); EOSINOPHILS % (AUTO) 4 % (0-10); LYMPHOCYTES # (AUTO) 2.3 X 10^3 (1.0-4.0); LYMPHOCYTES % (AUTO) 55 % (12-44); MEAN CORPUSCULAR HEMOGLOBIN 30 PG (25-34); MEAN CORPUSCULAR HGB CONC 33 G/DL (32-36); MEAN CORPUSCULAR VOLUME 89 FL (80-99); MEAN PLATELET VOLUME 9.9 FL (7.4-10.4); MONOCYTES # (AUTO) 0.4 X 10^3 (0.0-1.0); MONOCYTES % (AUTO) 11 % (0-12); NEUTROPHILS # (AUTO) 1.3 X 10^3 (1.8-7.8); NEUTROPHILS % (AUTO) 30 % (42-75); PLATELET COUNT 212 10^3/uL (130-400); RED BLOOD COUNT 3.88 10^6/uL (4.35-5.85); RED CELL DISTRIBUTION WIDTH 16.6 % (10.0-14.5); WHITE BLOOD COUNT 4.2 10^3/uL (4.3-11.0)
[2016-08-09 09:54] LABS: CALCIUM 9.4 MG/DL (8.5-10.1); CREATININE SERUM 1.02 MG/DL (0.60-1.30); POTASSIUM 3.9 MMOL/L (3.6-5.0)
[2016-08-16 14:36] LABS: BASOPHILS % (AUTO) 0 % (0-10); EOSINOPHILS # (AUTO) 0.2 10^3/uL (0.0-0.3); EOSINOPHILS % (AUTO) 4 % (0-10); LYMPHOCYTES # (AUTO) 2.4 X 10^3 (1.0-4.0); LYMPHOCYTES % (AUTO) 34 % (12-44); MEAN CORPUSCULAR HEMOGLOBIN 30 PG (25-34); MEAN CORPUSCULAR HGB CONC 34 G/DL (32-36); MEAN CORPUSCULAR VOLUME 90 FL (80-99); MEAN PLATELET VOLUME 10.1 FL (7.4-10.4); MONOCYTES # (AUTO) 0.7 X 10^3 (0.0-1.0); MONOCYTES % (AUTO) 10 % (0-12); NEUTROPHILS # (AUTO) 3.6 X 10^3 (1.8-7.8); NEUTROPHILS % (AUTO) 52 % (42-75); PLATELET COUNT 195 10^3/uL (130-400); RED CELL DISTRIBUTION WIDTH 17.4 % (10.0-14.5); WHITE BLOOD COUNT 6.9 10^3/uL (4.3-11.0)
[2016-08-16 15:05] LABS: ALANINE AMINOTRANSFERASE 14 U/L (0-55); ALBUMIN 3.8 G/DL (3.2-4.5); ANION GAP 13 MMOL/L (5-14); ASPARTATE AMINO TRANSFERASE 25 U/L (5-34); BILIRUBIN,TOTAL 0.5 MG/DL (0.1-1.0); BLOOD UREA NITROGEN 19 MG/DL (7-18); BUN/CREATININE RATIO 21; CALCIUM 9.2 MG/DL (8.5-10.1); CARBON DIOXIDE 24 MMOL/L (21-32); CHLORIDE 105 MMOL/L (98-107); CREATININE SERUM 0.91 MG/DL (0.60-1.30); GFR ESTIMATED > 60; GLUCOSE 110 MG/DL (70-105); MAGNESIUM 2.1 MG/DL (1.8-2.4); POTASSIUM 3.3 MMOL/L (3.6-5.0); SODIUM 142 MMOL/L (135-145); TOTAL PROTEIN 6.7 G/DL (6.4-8.2)
[2016-08-23 09:33] LABS: BASOPHILS % (AUTO) 0 % (0-10); EOSINOPHILS # (AUTO) 0.2 10^3/uL (0.0-0.3); EOSINOPHILS % (AUTO) 3 % (0-10); LYMPHOCYTES % (AUTO) 44 % (12-44); MEAN CORPUSCULAR HEMOGLOBIN 30 PG (25-34); MEAN CORPUSCULAR HGB CONC 33 G/DL (32-36); MEAN CORPUSCULAR VOLUME 91 FL (80-99); MEAN PLATELET VOLUME 9.9 FL (7.4-10.4); MONOCYTES # (AUTO) 0.5 X 10^3 (0.0-1.0); MONOCYTES % (AUTO) 10 % (0-12); NEUTROPHILS # (AUTO) 1.9 X 10^3 (1.8-7.8); NEUTROPHILS % (AUTO) 42 % (42-75); PLATELET COUNT 181 10^3/uL (130-400); RED BLOOD COUNT 3.91 10^6/uL (4.35-5.85); RED CELL DISTRIBUTION WIDTH 16.7 % (10.0-14.5); WHITE BLOOD COUNT 4.6 10^3/uL (4.3-11.0)
[2016-08-23 10:12] LABS: ANION GAP 12 MMOL/L (5-14); BLOOD UREA NITROGEN 15 MG/DL (7-18); BUN/CREATININE RATIO 18; CALCIUM 9.3 MG/DL (8.5-10.1); CARBON DIOXIDE 24 MMOL/L (21-32); CHLORIDE 104 MMOL/L (98-107); CREATININE SERUM 0.85 MG/DL (0.60-1.30); GFR ESTIMATED > 60; GLUCOSE 91 MG/DL (70-105); POTASSIUM 3.9 MMOL/L (3.6-5.0); SODIUM 140 MMOL/L (135-145)
[2016-08-30 09:07] LABS: BASOPHILS # (AUTO) 0.1 10^3/uL (0.0-0.1); BASOPHILS % (AUTO) 1 % (0-10); EOSINOPHILS # (AUTO) 0.3 10^3/uL (0.0-0.3); EOSINOPHILS % (AUTO) 4 % (0-10); LYMPHOCYTES # (AUTO) 2.1 X 10^3 (1.0-4.0); LYMPHOCYTES % (AUTO) 25 % (12-44); MEAN CORPUSCULAR HEMOGLOBIN 30 PG (25-34); MEAN CORPUSCULAR HGB CONC 33 G/DL (32-36); MEAN CORPUSCULAR VOLUME 91 FL (80-99); MEAN PLATELET VOLUME 9.6 FL (7.4-10.4); MONOCYTES # (AUTO) 0.8 X 10^3 (0.0-1.0); MONOCYTES % (AUTO) 10 % (0-12); NEUTROPHILS # (AUTO) 5.1 X 10^3 (1.8-7.8); NEUTROPHILS % (AUTO) 62 % (42-75); PLATELET COUNT 192 10^3/uL (130-400); RED BLOOD COUNT 3.91 10^6/uL (4.35-5.85); RED CELL DISTRIBUTION WIDTH 17.2 % (10.0-14.5); WHITE BLOOD COUNT 8.3 10^3/uL (4.3-11.0)
[2016-08-30 09:57] LABS: CALCIUM 9.6 MG/DL (8.5-10.1); CREATININE SERUM 0.93 MG/DL (0.60-1.30); POTASSIUM 3.6 MMOL/L (3.6-5.0)
[2016-09-06 08:59] LABS: BASOPHILS # (AUTO) 0.1 10^3/uL (0.0-0.1); BASOPHILS % (AUTO) 1 % (0-10); EOSINOPHILS # (AUTO) 0.3 10^3/uL (0.0-0.3); EOSINOPHILS % (AUTO) 5 % (0-10); LYMPHOCYTES # (AUTO) 1.9 X 10^3 (1.0-4.0); LYMPHOCYTES % (AUTO) 34 % (12-44); MEAN CORPUSCULAR HEMOGLOBIN 31 PG (25-34); MEAN CORPUSCULAR HGB CONC 33 G/DL (32-36); MEAN CORPUSCULAR VOLUME 92 FL (80-99); MEAN PLATELET VOLUME 9.8 FL (7.4-10.4); MONOCYTES # (AUTO) 0.7 X 10^3 (0.0-1.0); MONOCYTES % (AUTO) 13 % (0-12); NEUTROPHILS # (AUTO) 2.6 X 10^3 (1.8-7.8); NEUTROPHILS % (AUTO) 47 % (42-75); PLATELET COUNT 229 10^3/uL (130-400); RED BLOOD COUNT 3.77 10^6/uL (4.35-5.85); RED CELL DISTRIBUTION WIDTH 17.3 % (10.0-14.5); WHITE BLOOD COUNT 5.6 10^3/uL (4.3-11.0)
[2016-09-06 09:34] LABS: CALCIUM 9.3 MG/DL (8.5-10.1); CREATININE SERUM 0.92 MG/DL (0.60-1.30); POTASSIUM 3.8 MMOL/L (3.6-5.0)
[~2016-09-13] VITALS: Ht 152.4 cm; Wt 47.2 kg
[~2016-09-13 13:57] MED LIST changes: -BARIUM SUSPENSION 2.1% (VANILLA SILQ) 450 ML PO ONE; -CATHETER FLUSH 10 ML SYR IV PRN; +D5W 500 ML IV (CANCER CTR) 500 ML IV SCH; +FAMOTIDINE 20MG/2ML IV (CANCER CTR) IV SCH; +FOSAPREPITANT 150 MG/NS 150 MG IVPB (CANCER CTR) IV PRN; -IOHEXOL 350 MG/ML 100 ML (OMNIPAQUE 350) VIAL IV ONE; +LEUCOVORIN CALCIUM 350 MG, LEUCOVORIN CALCIUM 50 MG in D5W 250 ML IVPB (CANCER CTR) 250 ML IV SCH; +LEUCOVORIN CALCIUM 400 MG in D5W 250 ML IVPB (CANCER CTR) 250 ML IV SCH; +LORazepam 0.5 MG (ATIVAN) TABLET CANCER CTR PO PRN; -NS 100 ML (IVPB) BAG IV ONE; +ONDANSETRON 16 MG, DEXAMETHASONE 10 MG/NS 50 ML IVPB IV SCH; +OXALIPLATIN 100 MG in D5W 250 ML IVPB (CANCER CTR) 250 ML IV SCH; +PALONOSETRON 0.25 MG, DEXAMETHASONE 10 MG/NS 50 ML IVPB IV PRN
[2016-09-13 14:27] LABS: BASOPHILS % (AUTO) 0 % (0-10); EOSINOPHILS # (AUTO) 0.2 10^3/uL (0.0-0.3); EOSINOPHILS % (AUTO) 3 % (0-10); LYMPHOCYTES # (AUTO) 2.2 X 10^3 (1.0-4.0); LYMPHOCYTES % (AUTO) 34 % (12-44); MEAN CORPUSCULAR HEMOGLOBIN 30 PG (25-34); MEAN CORPUSCULAR HGB CONC 33 G/DL (32-36); MEAN CORPUSCULAR VOLUME 92 FL (80-99); MEAN PLATELET VOLUME 10.2 FL (7.4-10.4); MONOCYTES # (AUTO) 0.6 X 10^3 (0.0-1.0); MONOCYTES % (AUTO) 9 % (0-12); NEUTROPHILS # (AUTO) 3.5 X 10^3 (1.8-7.8); NEUTROPHILS % (AUTO) 54 % (42-75); PLATELET COUNT 209 10^3/uL (130-400); RED BLOOD COUNT 3.68 10^6/uL (4.35-5.85); RED CELL DISTRIBUTION WIDTH 16.2 % (10.0-14.5); WHITE BLOOD COUNT 6.4 10^3/uL (4.3-11.0)
[2016-09-13 16:06] LABS: ALANINE AMINOTRANSFERASE 11 U/L (0-55); ALBUMIN 3.8 G/DL (3.2-4.5); ANION GAP 7 MMOL/L (5-14); ASPARTATE AMINO TRANSFERASE 19 U/L (5-34); BILIRUBIN,TOTAL 0.3 MG/DL (0.1-1.0); BLOOD UREA NITROGEN 11 MG/DL (7-18); BUN/CREATININE RATIO 12; CALCIUM 9.2 MG/DL (8.5-10.1); CARBON DIOXIDE 27 MMOL/L (21-32); CHLORIDE 109 MMOL/L (98-107); CREATININE SERUM 0.89 MG/DL (0.60-1.30); GFR ESTIMATED > 60; GLUCOSE 103 MG/DL (70-105); MAGNESIUM 2.1 MG/DL (1.8-2.4); POTASSIUM 3.2 MMOL/L (3.6-5.0); SODIUM 143 MMOL/L (135-145); TOTAL PROTEIN 6.5 G/DL (6.4-8.2)
== END 2016-09-21 | disposition home or self-care (01) ==
LOC: ONC 13:57
PROVIDERS: ATTEND Internal Medicine Hematology & Oncology
DX: Z51.11 Encounter for antineoplastic chemotherapy (principal); C18.2 Malignant neoplasm of ascending colon; R91.8 Other nonspecific abnormal finding of lung field; D64.9 Anemia, unspecified; Z72.0 Tobacco use; Z79.899 Other long term (current) drug therapy
CPT/HCPCS: 36415; 36591; 80048; 80053; 82378; 83735; 85025; 96365; 96367; 96368; 96375; 96413; 96417; 96521; 99213

== ENCOUNTER 2017-01-17 08:25 | Outpatient (RCR) | payer MEDICARE, OTHER ==
[2016-12-06 14:27] LABS: BASOPHILS % (AUTO) 1 % (0-10); EOSINOPHILS # (AUTO) 0.2 10^3/uL (0.0-0.3); EOSINOPHILS % (AUTO) 3 % (0-10); LYMPHOCYTES # (AUTO) 2.8 X 10^3 (1.0-4.0); LYMPHOCYTES % (AUTO) 35 % (12-44); MEAN CORPUSCULAR HEMOGLOBIN 31 PG (25-34); MEAN CORPUSCULAR HGB CONC 34 G/DL (32-36); MEAN CORPUSCULAR VOLUME 91 FL (80-99); MEAN PLATELET VOLUME 10.7 FL (7.4-10.4); MONOCYTES # (AUTO) 0.6 X 10^3 (0.0-1.0); MONOCYTES % (AUTO) 7 % (0-12); NEUTROPHILS # (AUTO) 4.4 X 10^3 (1.8-7.8); NEUTROPHILS % (AUTO) 55 % (42-75); PLATELET COUNT 196 10^3/uL (130-400); RED BLOOD COUNT 4.42 10^6/uL (4.35-5.85); RED CELL DISTRIBUTION WIDTH 13.5 % (10.0-14.5)
[2016-12-06 14:46] LABS: ALBUMIN 4.5 GM/DL (3.2-4.5); BILIRUBIN,TOTAL 0.5 MG/DL (0.1-1.0); CALCIUM 9.5 MG/DL (8.5-10.1); CREATININE SERUM 0.92 MG/DL (0.60-1.30); ICTERUS 0.4 (-100-1.9); MAGNESIUM 2.2 MG/DL (1.8-2.4); POTASSIUM 3.3 MMOL/L (3.6-5.0); TOTAL PROTEIN 7.6 GM/DL (6.4-8.2)
[~2017-01-17 08:25] MED LIST changes: -D5W 500 ML IV (CANCER CTR) 500 ML IV SCH; -FAMOTIDINE 20MG/2ML IV (CANCER CTR) IV SCH; -FOSAPREPITANT 150 MG/NS 150 MG IVPB (CANCER CTR) IV PRN; -LEUCOVORIN CALCIUM 350 MG, LEUCOVORIN CALCIUM 50 MG in D5W 250 ML IVPB (CANCER CTR) 250 ML IV SCH; -LEUCOVORIN CALCIUM 400 MG in D5W 250 ML IVPB (CANCER CTR) 250 ML IV SCH; -LORazepam 0.5 MG (ATIVAN) TABLET CANCER CTR PO PRN; -ONDANSETRON 16 MG, DEXAMETHASONE 10 MG/NS 50 ML IVPB IV SCH; -OXALIPLATIN 100 MG in D5W 250 ML IVPB (CANCER CTR) 250 ML IV SCH; -PALONOSETRON 0.25 MG, DEXAMETHASONE 10 MG/NS 50 ML IVPB IV PRN
[2017-01-17 08:57] LABS: BASOPHILS % (AUTO) 0 % (0-10); EOSINOPHILS # (AUTO) 0.3 10^3/uL (0.0-0.3); EOSINOPHILS % (AUTO) 4 % (0-10); LYMPHOCYTES # (AUTO) 2.2 X 10^3 (1.0-4.0); LYMPHOCYTES % (AUTO) 30 % (12-44); MEAN CORPUSCULAR HEMOGLOBIN 31 PG (25-34); MEAN CORPUSCULAR HGB CONC 35 G/DL (32-36); MEAN CORPUSCULAR VOLUME 90 FL (80-99); MEAN PLATELET VOLUME 10.6 FL (7.4-10.4); MONOCYTES # (AUTO) 0.6 X 10^3 (0.0-1.0); MONOCYTES % (AUTO) 8 % (0-12); NEUTROPHILS # (AUTO) 4.1 X 10^3 (1.8-7.8); NEUTROPHILS % (AUTO) 58 % (42-75); PLATELET COUNT 168 10^3/uL (130-400); RED BLOOD COUNT 4.01 10^6/uL (4.35-5.85); RED CELL DISTRIBUTION WIDTH 14.2 % (10.0-14.5); WHITE BLOOD COUNT 7.1 10^3/uL (4.3-11.0)
[2017-01-17 09:24] LABS: ALANINE AMINOTRANSFERASE 17 U/L (0-55); ANION GAP 10 MMOL/L (5-14); ASPARTATE AMINO TRANSFERASE 21 U/L (5-34); BILIRUBIN,TOTAL 0.9 MG/DL (0.1-1.0); BLOOD UREA NITROGEN 10 MG/DL (7-18); BUN/CREATININE RATIO 12; CALCIUM 9.2 MG/DL (8.5-10.1); CARBON DIOXIDE 24 MMOL/L (21-32); CHLORIDE 106 MMOL/L (98-107); CREATININE SERUM 0.86 MG/DL (0.60-1.30); GFR ESTIMATED > 60; GLUCOSE 112 MG/DL (70-105); POTASSIUM 3.2 MMOL/L (3.6-5.0); SODIUM 140 MMOL/L (135-145); TOTAL PROTEIN 6.8 GM/DL (6.4-8.2)
== END 2017-01-23 | disposition home or self-care (01) ==
LOC: ONC 08:25
PROVIDERS: ATTEND Internal Medicine Hematology & Oncology
DX: C18.2 Malignant neoplasm of ascending colon (principal); D64.9 Anemia, unspecified; F17.210 Nicotine dependence, cigarettes, uncomplicated; Z79.899 Other long term (current) drug therapy; Z45.2 Encounter for adjustment and management of vascular access device
CPT/HCPCS: 36591; 80053; 83735; 85025; 96523

== ENCOUNTER 2017-01-27 05:39 | Outpatient (CLI) | payer MEDICARE, OTHER ==
[~2017-01-27] VITALS: Ht 152.4 cm; Wt 48.1 kg
== END 2017-01-27 15:44 ==
LOC: PREOP 05:39
PROVIDERS: ATTEND Surgery
DX: Z01.818 Encounter for other preprocedural examination (principal); Z85.038 Personal history of other malignant neoplasm of large intestine

== ENCOUNTER 2017-01-31 06:29 | Day surgery (SDC) | payer MEDICARE, OTHER ==
[~2017-01-31] VITALS: Ht 152.4 cm; Wt 48.1 kg
[~2017-01-31 06:29] MED LIST changes: +LOSA1TAB23 PO; -LOSA1TAB70 PO
[2017-01-31] MEDS ORDERED: NS IV 500 ML 500 ML IV PRN (06:50)
[2017-01-31] MEDS ORDERED: NS IV 500 ML 500 ML ONE (06:59)
[2017-01-31 07:17] VITALS: BP 139/82
[2017-01-31] MEDS ORDERED: fentaNYL INJECTION 100 MCG/2 ML AMP ONE (07:56)
[2017-01-31] MEDS ORDERED: MIDAZOLAM 2 MG/2 ML (VERSED) VIAL ONE ×3 (07:56)
[2017-01-31] MEDS: fentaNYL INJECTION 100 MCG/2 ML AMP IVP PRN ×2 (08:15→08:18)
[2017-01-31] MEDS: MIDAZOLAM 2 MG/2 ML (VERSED) VIAL IVP PRN ×2 (08:16→08:19)
--- NOTE | 2017-01-31 08:17 | History & Physicial ---
History of Present Illness History of Present Illness Reason for visit/HPI to undergo surveillance colonoscopy. 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 Date of Admission Date Seen by Provider: Jan 31, 2017 Time Seen by Provider: 08:15 I consulted on this patient on 01/31/17 08:15 Attending Physician Andrew Parra MD Admitting Physician Radha Kohli DO Consult Allergies and Home Medications Allergies Coded Allergies: oxycodone (Unverified Allergy, Mild, 01/27/17) Home Medications Aspirin 81 Mg Tabec, 81 MG PO DAILY, (Reported) Metoprolol Succinate 100 Mg Tab.sr.24h, 100 MG PO DAILY, (Reported) Multivitamins 1 Tab Tablet, 1 TAB PO DAILY, (Reported) Pantoprazole Sodium 40 Mg Tablet.dr, 40 MG PO DAILY, #90 Prescribed by: MESHA EWING on 12/31/15 1336 Rosuvastatin Calcium 40 Mg Tablet, 40 MG PO DAILY, (Reported) Past Mrfkkdl-Mtfjuc-Cwzkco Hx Patient Social History Marrital Status: Employed/Student: retired Alcohol Use: Denies Use Recreational Drug Use: No Smoking Status: Current Everyday Smoker Type Used: Cigarettes Recent Foreign Travel: No Contact w/other who traveled: No Recent Hopitalizations: No Recent Infectious Disease Expo: No Immunizations Up To Date Tetanus Booster (TDap): Unknown Date of Pneumonia Vaccine: Apr 20, 2014 Seasonal Allergies Seasonal Allergies: No Surgeries HX Surgeries: Yes (aorta graft, bilat knee scope, stent in leg) Surgeries: Bowel Surgery, Gallbladder, Hysterectomy, Orthopedic Respiratory Hx Respiratory Disorders: No Cardiovascular Hx Cardiovascular Disorders: Yes Cardiac Disorders: High Cholesterol, Hypertension Neurological Hx Neurological Disorders: No 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 System Hx 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 Disorders: No Sexually Transmitted Disease: No HIV/AIDS: No Female 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 Disorders: Denies Genitourinary Hx Genitourinary Disorders: No Gastrointestinal Hx Gastrointestinal Disorders: Yes (HX COLON CA) Gastrointestinal Disorders: Gastroesophageal Reflux Musculoskeletal Hx Musculoskeletal Disorders: Yes (HX PELVIC FX) Musculoskeletal Disorders: Arthritis Endocrine Hx Endocrine Disorders: No HEENT HX ENT Disorders: Yes (GLASSES) Loss of Vision: Bilateral Hearing Impairment: Denies Cancer Hx Cancer: Yes Cancer: Colon Psychosocial Hx Psychiatric Problems: No Integumentary HX Skin/Integumentary Disorder: No Blood Transfusions Hx Blood Disorders: No Adverse Reaction to a Blood Tr: No (N/A) Family Medical History Family Hx: Colon cancer G8 BROTHER Diabetes mellitus 19 FATHER Constitutional: no symptoms reported EENTM: no symptoms reported Respiratory: no symptoms reported Cardiovascular: no symptoms reported Gastrointestinal: no symptoms reported Genitourinary: no symptoms reported Skin: no symptoms reported Psychiatric/Neurological: No Symptoms Reported Physical Exam Vital Signs Vital Sign - Last 12Hours 01/31/17 07:17 Temp 97.5 Pulse 67 Resp 18 B/P (MAP) 139/82 Pulse Ox 99 O2 Delivery Room Air Capillary Refill : General Appearance: No Apparent Distress Neck: Normal Inspection Respiratory: Lungs Clear Cardiovascular: Regular Rate, Rhythm Gastrointestinal: Non Tender, Soft Rectal: Deferred Skin: Warm/Dry Assessment/Plan Assessment and Plan lady with a personal history of carcinoma of the hepatic flexure. For surveillance colonoscopy. Problems: ANDREW PARRA MD Jan 31, 2017 8:17 am
--- NOTE | 2017-01-31 08:17 | Conscious Sedation/ASA ---
Conscious Sedation Pre-Proced Time Reviewed: 07:42 ASA Class: 2 Airway Mallampati Classification: (cherokee appropriate class) I. II. III, IV Lungs Heart ASA score ASA 1: a normal healthy patient ASA 2: a patient with a mild systemic disease (mid diabetes, controlled hypertension, obesity ASA 3: a patient with a severe systemic disease that limits activity (angina , COPD, prior Myocardial infarction) ASA 4: a patient with an incapacitating disease that is a constant threat to life (CHF, renal failure) ASA 5: a moribund patient not expected to survive 24 hrs. (ruptured aneurysm) ASA 6: a declared brain patient whose organs are being harvested. For emergent operations, add the letter E after the classification Grade 1 Sedation Plan: Discussed options with patient/fam Note The patient is an appropriate candidate to undergo the planned procedure, sedation, and anesthesia. The patient immediately re-assessed prior to indication. ANDREW TREVINO MD Jan 31, 2017 8:17 am
--- NOTE | 2017-01-31 08:39 | Endo Procedure Record ---
Endo Procedure Report Date of Procedure Jan 31, 2017 Surgeon (s) ANDREW TREVINO MD Post Procedure/Op Diagnosis 2 mm rectal polyp Procedure Performed colonoscopy to ileocolic anastomosis Snare polypectomy Description of Procedure Anesthesia Type: Conscious Sedation Specimen(s) collected/removed rectal polyp Description of the Procedure Indication for procedure: In December 2015, this lady underwent right hemicolectomy to manage a carcinoma the hepatic flexure. She returned for surveillance colonoscopy. Informed consent was obtained after reviewing the procedure in detail. Description of the procedure: She was placed in left lateral decubitus position and her vital signs were monitored. Conscious sedation was achieved using Versed and fentanyl. Digital rectal examination was unremarkable. The colonoscope was then introduced in the rectum and advanced to the ileo-colic anastomosis. The scope was then withdrawn slowly and the mucosa examined in a systematic fashion. Finding: A 2 mm pedunculated polyp at the mid rectum, that was snared and retrieved. She tolerated the procedure well and was taken back to the nursing area in a stable condition Impression: Previous carcinoma the hepatic flexure. Rectal polyp excised. Recommend repeating in 1 year. Copies To: NEMESIO CAMACHO DO Copies To: TERESITA SEN XAVIER M MD Jan 31, 2017 8:39 am
--- NOTE | 2017-01-31 08:41 | Discharge Inst-Simple/Standard ---
Discharge Inst-Standard Discharge Medications New, Converted or Re-Newed RX: Other Patient Instructions/Follow Up Plan of Care/Instructions/FU: repeat colonoscopy in one year Activity as Tolerated: Yes Discharge Diet: No Restrictions ANDREW TREVINO MD Jan 31, 2017 8:40 am
[2017-01-31 08:55] VITALS: BP 161/74
[2017-01-31 09:30] VITALS: BP 158/69
[2017-01-31 09:45] VITALS: BP 158/69
== END 2017-01-31 09:45 | disposition home or self-care (01) ==
LOC: ENDO 06:29
PROVIDERS: ATTEND Surgery
DX: Z08 Encounter for follow-up examination after completed treatment for malignant neoplasm (principal); C18.3 Malignant neoplasm of hepatic flexure; D12.8 Benign neoplasm of rectum; Z98.0 Intestinal bypass and anastomosis status; I10 Essential (primary) hypertension; E78.00 Pure hypercholesterolemia, unspecified; F17.210 Nicotine dependence, cigarettes, uncomplicated; K21.9 Gastro-esophageal reflux disease without esophagitis; M19.91 Primary osteoarthritis, unspecified site; Z79.899 Other long term (current) drug therapy
CPT/HCPCS: 88305

== ENCOUNTER 2017-02-17 09:23 | Outpatient (RCR) | payer MEDICARE, OTHER ==
[~2017-02-17 09:23] MED LIST changes: -LOSA1TAB23 PO; +LOSA1TAB70 PO
[2017-02-17 09:36] LABS: BASOPHILS % (AUTO) 0 % (0-10); EOSINOPHILS # (AUTO) 0.2 10^3/uL (0.0-0.3); EOSINOPHILS % (AUTO) 3 % (0-10); LYMPHOCYTES # (AUTO) 2.6 X 10^3 (1.0-4.0); LYMPHOCYTES % (AUTO) 37 % (12-44); MEAN CORPUSCULAR HEMOGLOBIN 31 PG (25-34); MEAN CORPUSCULAR HGB CONC 34 G/DL (32-36); MEAN CORPUSCULAR VOLUME 91 FL (80-99); MEAN PLATELET VOLUME 10.8 FL (7.4-10.4); MONOCYTES # (AUTO) 0.4 X 10^3 (0.0-1.0); MONOCYTES % (AUTO) 6 % (0-12); NEUTROPHILS # (AUTO) 3.8 X 10^3 (1.8-7.8); NEUTROPHILS % (AUTO) 54 % (42-75); PLATELET COUNT 190 10^3/uL (130-400); RED BLOOD COUNT 4.28 10^6/uL (4.35-5.85); RED CELL DISTRIBUTION WIDTH 13.8 % (10.0-14.5)
[2017-02-17 09:55] LABS: ALANINE AMINOTRANSFERASE 16 U/L (0-55); ALBUMIN 4.2 GM/DL (3.2-4.5); ANION GAP 10 MMOL/L (5-14); ASPARTATE AMINO TRANSFERASE 22 U/L (5-34); BILIRUBIN,TOTAL 0.6 MG/DL (0.1-1.0); BLOOD UREA NITROGEN 8 MG/DL (7-18); BUN/CREATININE RATIO 9; CALCIUM 9.5 MG/DL (8.5-10.1); CARBON DIOXIDE 28 MMOL/L (21-32); CHLORIDE 104 MMOL/L (98-107); GFR ESTIMATED > 60; GLUCOSE 108 MG/DL (70-105); POTASSIUM 3.1 MMOL/L (3.6-5.0); SODIUM 142 MMOL/L (135-145); TOTAL PROTEIN 6.9 GM/DL (6.4-8.2)
== END 2017-03-19 | disposition home or self-care (01) ==
LOC: ONC 09:23
PROVIDERS: ATTEND Internal Medicine Hematology & Oncology
DX: C18.2 Malignant neoplasm of ascending colon (principal); D64.9 Anemia, unspecified; F17.210 Nicotine dependence, cigarettes, uncomplicated; Z79.899 Other long term (current) drug therapy; Z45.2 Encounter for adjustment and management of vascular access device
CPT/HCPCS: 36591; 80053; 82378; 85025

== ENCOUNTER → 2017-02-22 | Outpatient (CLI) | payer MEDICARE, OTHER ==
[~2017-02-22] MED LIST changes: +BARIUM SUSPENSION 2.1% (VANILLA SILQ) 450 ML PO ONE; +CATHETER FLUSH 10 ML SYR IV PRN; +IOHEXOL 350 MG/ML 100 ML (OMNIPAQUE 350) VIAL IV ONE; +NS 100 ML (IVPB) BAG IV ONE
--- NOTE | 2017-02-22 11:00 | Diagnostic Imaging Report ---
PROCEDURE: CT chest with contrast, CT abdomen and pelvis with and without contrast. TECHNIQUE: Pre and post intravenous contrast axial imaging of the abdomen and pelvis and post contrast axial imaging of the chest were performed. INDICATION: Colon cancer. COMPARISON: Comparison made with prior examination 08/30/2016. FINDINGS: Note is again made of multiple tiny nodular densities in the lungs bilaterally which are essentially unchanged. There is no pleural or pericardial fluid. There is no pneumothorax. The heart size is normal. There is no pathologically enlarged adenopathy in the chest. There is no pneumothorax. There are mild degenerative changes in the thoracic spine. The liver is normal in size without focal lesions. Gallbladder is surgically absent. There is no biliary duct dilatation. Spleen is normal. The pancreas and adrenal glands are unremarkable. Tiny cyst in the left kidney. Abdominal aorta is nonaneurysmal. The bowel gas pattern is nonspecific. There is no free air. There is no ascites. There is no focal inflammatory changes. There is no pelvic mass, adenopathy or free fluid. There is no pathologic central retroperitoneal or mesenteric adenopathy. There is a solitary node just above the celiac trunk measuring 1 cm. There is no pelvic mass or adenopathy. There are degenerative changes in the lumbar spine. IMPRESSION: 1. Numerous nodular-like densities in the lungs bilaterally most of which measure less than 5 mm. These show no significant interval change since prior examination. The stability suggests a benign process possibly sequela from previous infection or inflammatory process. Recommend clinical correlation and continued short interval imaging surveillance as clinically warranted. 2. 1 cm celiac node. No other pathologically enlarged adenopathy in the abdomen or pelvis. 3. Degenerative changes in the spine. 4. Small left renal cyst. 5. No other acute abnormality in the chest, abdomen or pelvis. Dictated by: Dictated on workstation # [id number]
== END ==
LOC: RAD 09:40
PROVIDERS: ATTEND Nurse Practitioner Adult Health
DX: C18.2 Malignant neoplasm of ascending colon (principal); R91.8 Other nonspecific abnormal finding of lung field; N28.1 Cyst of kidney, acquired; R59.0 Localized enlarged lymph nodes; M47.816 Spondylosis without myelopathy or radiculopathy, lumbar region
CPT/HCPCS: 71260; 74178

== ENCOUNTER → 2017-03-10 | Outpatient (CLI) | payer MEDICARE, OTHER ==
[~2017-03-10] MED LIST changes: -BARIUM SUSPENSION 2.1% (VANILLA SILQ) 450 ML PO ONE; -CATHETER FLUSH 10 ML SYR IV PRN; -IOHEXOL 350 MG/ML 100 ML (OMNIPAQUE 350) VIAL IV ONE; -NS 100 ML (IVPB) BAG IV ONE
--- NOTE | 2017-03-10 12:00 | Diagnostic Imaging Report ---
EXAMINATION: 3 views of the right thumb. INDICATION: Right thumb pain. FINDINGS: No fracture is seen. There is normal alignment of the joints. There is significant osteoarthritis changes at the carpometacarpal joint at the base of the thumb. No radiopaque foreign body. Prominent degenerative changes at other DIP joints also seen. IMPRESSION: Prominent osteoarthritis changes at the carpometacarpal joint at the base of the thumb. Dictated by: Dictated on workstation # [id number]
== END ==
LOC: RAD 09:37
PROVIDERS: ATTEND Family Medicine
DX: M18.11 Unilateral primary osteoarthritis of first carpometacarpal joint, right hand (principal)
CPT/HCPCS: 73140

== ENCOUNTER 2017-08-18 08:10 | Outpatient (RCR) | payer MEDICARE, OTHER ==
[2017-05-26 09:44] LABS: BASOPHILS # (AUTO) 0.1 10^3/uL (0.0-0.1); BASOPHILS % (AUTO) 1 % (0-10); EOSINOPHILS # (AUTO) 0.2 10^3/uL (0.0-0.3); EOSINOPHILS % (AUTO) 2 % (0-10); HEMATOCRIT 40 % (35-52); HEMOGLOBIN 13.7 G/DL (11.5-16.0); LYMPHOCYTES # (AUTO) 2.1 X 10^3 (1.0-4.0); LYMPHOCYTES % (AUTO) 25 % (12-44); MEAN CORPUSCULAR HEMOGLOBIN 31 PG (25-34); MEAN CORPUSCULAR HGB CONC 34 G/DL (32-36); MEAN CORPUSCULAR VOLUME 92 FL (80-99); MEAN PLATELET VOLUME 10.4 FL (7.4-10.4); MONOCYTES # (AUTO) 0.5 X 10^3 (0.0-1.0); MONOCYTES % (AUTO) 6 % (0-12); NEUTROPHILS # (AUTO) 5.7 X 10^3 (1.8-7.8); NEUTROPHILS % (AUTO) 66 % (42-75); PLATELET COUNT 192 10^3/uL (130-400); RED BLOOD COUNT 4.38 10^6/uL (4.35-5.85); RED CELL DISTRIBUTION WIDTH 13.3 % (10.0-14.5); WHITE BLOOD COUNT 8.5 10^3/uL (4.3-11.0)
[2017-05-26 10:05] LABS: ALANINE AMINOTRANSFERASE 13 U/L (0-55); ALBUMIN 4.2 GM/DL (3.2-4.5); ALKALINE PHOSPHATASE 66 U/L (40-136); BILIRUBIN,TOTAL 0.5 MG/DL (0.1-1.0); BUN/CREATININE RATIO 14; CALCIUM 9.7 MG/DL (8.5-10.1); CARBON DIOXIDE 28 MMOL/L (21-32); CHLORIDE 105 MMOL/L (98-107); CREATININE SERUM 0.81 MG/DL (0.60-1.30); GFR ESTIMATED > 60; GLUCOSE 96 MG/DL (70-105); POTASSIUM 3.4 MMOL/L (3.6-5.0); SODIUM 142 MMOL/L (135-145); TOTAL PROTEIN 7.4 GM/DL (6.4-8.2)
[~2017-08-18 08:10] MED LIST changes: -BARIUM SUSPENSION 2.1% (VANILLA SILQ) 450 ML PO ONE; -CATHETER FLUSH 10 ML SYR IV PRN; -IOHEXOL 350 MG/ML 100 ML (OMNIPAQUE 350) VIAL IV ONE; -NS 250 ML (IVPB) BAG IV ONE
[2017-08-18 08:24] LABS: BASOPHILS % (AUTO) 0 % (0-10); EOSINOPHILS # (AUTO) 0.3 10^3/uL (0.0-0.3); EOSINOPHILS % (AUTO) 4 % (0-10); HEMATOCRIT 40 % (35-52); HEMOGLOBIN 13.7 G/DL (11.5-16.0); LYMPHOCYTES # (AUTO) 2.2 X 10^3 (1.0-4.0); LYMPHOCYTES % (AUTO) 28 % (12-44); MEAN CORPUSCULAR HEMOGLOBIN 32 PG (25-34); MEAN CORPUSCULAR HGB CONC 34 G/DL (32-36); MEAN CORPUSCULAR VOLUME 92 FL (80-99); MEAN PLATELET VOLUME 10.7 FL (7.4-10.4); MONOCYTES # (AUTO) 0.5 X 10^3 (0.0-1.0); MONOCYTES % (AUTO) 7 % (0-12); NEUTROPHILS # (AUTO) 4.7 X 10^3 (1.8-7.8); NEUTROPHILS % (AUTO) 62 % (42-75); PLATELET COUNT 183 10^3/uL (130-400); RED BLOOD COUNT 4.35 10^6/uL (4.35-5.85); RED CELL DISTRIBUTION WIDTH 13.6 % (10.0-14.5); WHITE BLOOD COUNT 7.7 10^3/uL (4.3-11.0)
[2017-08-18 08:44] LABS: ALANINE AMINOTRANSFERASE 14 U/L (0-55); ALBUMIN 4.3 GM/DL (3.2-4.5); ALKALINE PHOSPHATASE 61 U/L (40-136); BILIRUBIN,TOTAL 0.8 MG/DL (0.1-1.0); BUN/CREATININE RATIO 17; CALCIUM 9.7 MG/DL (8.5-10.1); CARBON DIOXIDE 21 MMOL/L (21-32); CHLORIDE 107 MMOL/L (98-107); CREATININE SERUM 0.82 MG/DL (0.60-1.30); GFR ESTIMATED > 60; GLUCOSE 99 MG/DL (70-105); POTASSIUM 3.9 MMOL/L (3.6-5.0); SODIUM 140 MMOL/L (135-145); TOTAL PROTEIN 7.3 GM/DL (6.4-8.2)
== END 2017-08-24 | disposition home or self-care (01) ==
LOC: ONC 08:10
PROVIDERS: ATTEND Internal Medicine Hematology & Oncology
DX: C18.2 Malignant neoplasm of ascending colon (principal); R91.8 Other nonspecific abnormal finding of lung field; N28.1 Cyst of kidney, acquired; R59.0 Localized enlarged lymph nodes; M47.816 Spondylosis without myelopathy or radiculopathy, lumbar region; D64.9 Anemia, unspecified; F17.210 Nicotine dependence, cigarettes, uncomplicated; Z79.899 Other long term (current) drug therapy
CPT/HCPCS: 36415; 80053; 82378; 85025; 99213

== ENCOUNTER → 2017-08-18 | Outpatient (CLI) | payer MEDICARE, OTHER ==
[~2017-08-18] MED LIST changes: +BARIUM SUSPENSION 2.1% (VANILLA SILQ) 450 ML PO ONE; +CATHETER FLUSH 10 ML SYR IV PRN; +IOHEXOL 350 MG/ML 100 ML (OMNIPAQUE 350) VIAL IV ONE; +LOSA1TAB23 PO; -LOSA1TAB70 PO; +NS 250 ML (IVPB) BAG IV ONE
--- NOTE | 2017-08-18 11:54 | Diagnostic Imaging Report ---
PROCEDURE: CT chest and abdomen with contrast. TECHNIQUE: Multiple contiguous axial images were obtained through the chest and abdomen after the administration of intravenous contrast. INDICATION: Pulmonary nodules. COMPARISON: Comparison made to study from 02/22/2017. FINDINGS: There are several peripheral nodular densities scattered throughout both lungs. There has been an interval increase in the size and number of these nodules which would suggest that these are most likely due to pulmonary metastases. There is no appreciable hilar or mediastinal lymphadenopathy. Largest nodule in the right lower lung has increased from 5 to 8 mm in diameter and largest at the left posterior lung base has increased from 3 to 6 mm in diameter. In the abdomen, the liver appears normal. The gallbladder is surgically absent. Pancreas is normal. Spleen is not enlarged. Adrenals are normal. Kidneys appear normal. There is calcific atherosclerosis of aorta. There are several surgical [place] in the retroperitoneum presumably from previous lymph node dissection. There are no pathologically enlarged lymph nodes in the retroperitoneum or peritoneal cavities. IMPRESSION: Numerous pulmonary nodules have increased in size and number and are suspicious for pulmonary metastases. Dictated by: Dictated on workstation # [id number]
== END ==
LOC: RAD 08:20
PROVIDERS: ATTEND Internal Medicine Hematology & Oncology
DX: C18.2 Malignant neoplasm of ascending colon (principal); R91.8 Other nonspecific abnormal finding of lung field
CPT/HCPCS: 71260; 74160

== ENCOUNTER 2017-08-25 09:54 | Outpatient (RCR) | payer MEDICARE, OTHER | END 2017-11-23 | disposition home or self-care (01) | LOC: ONC 09:54 | PROVIDERS: ATTEND Internal Medicine Hematology & Oncology | DX: C18.2 Malignant neoplasm of ascending colon (principal); R91.8 Other nonspecific abnormal finding of lung field; N28.1 Cyst of kidney, acquired; R59.0 Localized enlarged lymph nodes; M47.816 Spondylosis without myelopathy or radiculopathy, lumbar region; D64.9 Anemia, unspecified; F17.210 Nicotine dependence, cigarettes, uncomplicated; Z79.899 Other long term (current) drug therapy | CPT/HCPCS: 99213 ==

== ENCOUNTER → 2018-02-23 | Outpatient (CLI) | payer MEDICARE, OTHER ==
[~2018-02-23] MED LIST changes: -LOSA25TA21 PO; +LOSA25TA6 PO
--- NOTE | 2018-02-23 11:52 | Diagnostic Imaging Report ---
PROCEDURE: CT chest and abdomen with contrast. TECHNIQUE: Multiple contiguous axial images were obtained through the chest and abdomen after the administration of intravenous contrast. INDICATION: Cancer of the ascending colon. Study is performed for followup. COMPARISON: Comparison is made with prior CT from 08/18/2017. CT CHEST: No axillary lymphadenopathy is identified. No hilar lymphadenopathy is seen. No definite mediastinal lymphadenopathy is detected. No pericardial or pleural fluid is detected. Innumerable noncalcified pulmonary nodules are identified bilaterally. These again demonstrate some generalized increase in size when compared with prior exam. A nodule in the medial left lower lobe measures 12 mm compared with 5 mm. An aggregate of nodules in the medial posterior right lower lobe measures 15 mm compared with 12 mm. Numerous additional nodules have increased as well. IMPRESSION: Continued increase in size of numerous bilateral pulmonary nodules when compared with prior study from 08/18/2017. Findings remain consistent with worsening pulmonary metastatic disease. No definite thoracic lymphadenopathy or thoracic effusion is seen. CT ABDOMEN: No discrete liver mass is seen. Gallbladder is surgically absent. No biliary ductal dilatation is identified. The pancreas and spleen are unremarkable. No adrenal mass is identified. Kidneys are unremarkable. Aorta is calcified but nonaneurysmal. Retroperitoneal surgical clips are again seen consistent with prior lymph node dissection. There has been some increase in prominence of central retroperitoneal lymph nodes when compared with prior study. Emperatriz mass adjacent to the distal abdominal aorta on the left just proximal to the bifurcation measures 14 mm. This compares with 8 mm on prior. Visualized bowel loops are normal in caliber. There is no ascites. IMPRESSION: There has been some increase in prominence of central retroperitoneal lymph nodes when compared with examination from 08/18/2017, suspicious for metastatic disease. No other new abnormality is seen. No discrete liver mass is detected. Dictated by: Dictated on workstation # [id number]
== END ==
LOC: RAD 09:29
PROVIDERS: ATTEND Internal Medicine Hematology & Oncology
DX: C18.2 Malignant neoplasm of ascending colon (principal); R91.8 Other nonspecific abnormal finding of lung field
CPT/HCPCS: 71260; 74160

== ENCOUNTER → 2018-02-28 | Outpatient (CLI) | payer MEDICARE, OTHER ==
--- NOTE | 2018-02-28 15:24 | Diagnostic Imaging Report ---
INDICATION: Colon carcinoma. This study is performed for restaging. TECHNIQUE: Serum blood glucose level at the time of injection is 101 mg/dL. Patient was administered 13.4 mCi F-18 FDG intravenously in the right antecubital location and PET imaging was performed from the top of the skull through the mid thighs. Noncontrast CT was also performed for attenuation correction and anatomic correlation. COMPARISON: Correlation is made with prior PET/CT from 02/17/2016. Comparison is also made with recent CT from 02/23/2018. FINDINGS: There is symmetric activity throughout the brain. Physiologic activity within the soft tissues of the neck is noted. Mediastinum and edmundo are unremarkable for hypermetabolism. There are numerous pulmonary parenchymal nodules present, consistent with known pulmonary metastatic disease. Many of these show moderate hypermetabolism. Imaging through the abdomen does show physiologic activity within the GI and tracts. Previously noted mild hypermetabolism in upper abdominal lymph nodes is less prominent on today's study. This was noted in the peripancreatic and celiac trunk regions. However, there has been development of hypermetabolism more inferiorly at the level of the aortic bifurcation in the central retroperitoneum. Emperatriz mass in the right periaortic location demonstrates hypermetabolism measuring SUV max of 7.7. A smaller emperatriz mass in the left periaortic region is also noted at the same level with SUV max of 5.6. A second node just inferior to this in the right iliac location is hypermetabolic with SUV max of 4.6. No other regions of hypermetabolism are identified. IMPRESSION: 1. Diffuse pulmonary metastatic disease. No definite mediastinal or hilar hypermetabolism is seen. 2. Hypermetabolic lymph nodes in the caudal central retroperitoneum near the aortic bifurcation, suggestive of metastatic nodes. The previously noted low-level hypermetabolism in the upper abdomen, peripancreatic, and celiac trunk region is no longer appreciated. Dictated by: Dictated on workstation # [id number]
== END ==
LOC: RAD 08:32
PROVIDERS: ATTEND Internal Medicine Hematology & Oncology
DX: C78.00 Secondary malignant neoplasm of unspecified lung (principal); C18.2 Malignant neoplasm of ascending colon

== ENCOUNTER 2018-03-01 11:01 | Outpatient (RCR) | payer MEDICARE, OTHER ==
[2018-02-23 09:55] LABS: BASOPHILS % (AUTO) 0 % (0-10); EOSINOPHILS # (AUTO) 0.3 10^3/uL (0.0-0.3); EOSINOPHILS % (AUTO) 4 % (0-10); HEMATOCRIT 40 % (35-52); HEMOGLOBIN 13.4 G/DL (11.5-16.0); LYMPHOCYTES # (AUTO) 2.3 X 10^3 (1.0-4.0); LYMPHOCYTES % (AUTO) 30 % (12-44); MEAN CORPUSCULAR HEMOGLOBIN 30 PG (25-34); MEAN CORPUSCULAR HGB CONC 33 G/DL (32-36); MEAN CORPUSCULAR VOLUME 91 FL (80-99); MEAN PLATELET VOLUME 10.7 FL (7.4-10.4); MONOCYTES # (AUTO) 0.4 X 10^3 (0.0-1.0); MONOCYTES % (AUTO) 6 % (0-12); NEUTROPHILS # (AUTO) 4.6 X 10^3 (1.8-7.8); NEUTROPHILS % (AUTO) 60 % (42-75); PLATELET COUNT 212 10^3/uL (130-400); RED BLOOD COUNT 4.42 10^6/uL (4.35-5.85); RED CELL DISTRIBUTION WIDTH 14.6 % (10.0-14.5); WHITE BLOOD COUNT 7.7 10^3/uL (4.3-11.0)
[2018-02-23 10:18] LABS: ALBUMIN 4.3 GM/DL (3.2-4.5); BILIRUBIN,TOTAL 0.6 MG/DL (0.1-1.0); CALCIUM 9.7 MG/DL (8.5-10.1); CREATININE SERUM 0.95 MG/DL (0.60-1.30); POTASSIUM 3.7 MMOL/L (3.6-5.0); TOTAL PROTEIN 7.5 GM/DL (6.4-8.2)
[2018-03-01 11:13] LABS: BASOPHILS % (AUTO) 0 % (0-10); EOSINOPHILS # (AUTO) 0.2 10^3/uL (0.0-0.3); EOSINOPHILS % (AUTO) 3 % (0-10); HEMATOCRIT 40 % (35-52); HEMOGLOBIN 13.6 G/DL (11.5-16.0); LYMPHOCYTES # (AUTO) 2.4 X 10^3 (1.0-4.0); LYMPHOCYTES % (AUTO) 30 % (12-44); MEAN CORPUSCULAR HEMOGLOBIN 31 PG (25-34); MEAN CORPUSCULAR HGB CONC 34 G/DL (32-36); MEAN CORPUSCULAR VOLUME 92 FL (80-99); MEAN PLATELET VOLUME 10.6 FL (7.4-10.4); MONOCYTES # (AUTO) 0.6 X 10^3 (0.0-1.0); MONOCYTES % (AUTO) 8 % (0-12); NEUTROPHILS # (AUTO) 4.8 X 10^3 (1.8-7.8); NEUTROPHILS % (AUTO) 60 % (42-75); PLATELET COUNT 212 10^3/uL (130-400); RED BLOOD COUNT 4.38 10^6/uL (4.35-5.85); RED CELL DISTRIBUTION WIDTH 14.7 % (10.0-14.5)
[2018-03-01 11:30] LABS: ALANINE AMINOTRANSFERASE 12 U/L (0-55); ALBUMIN 4.5 GM/DL (3.2-4.5); ALKALINE PHOSPHATASE 61 U/L (40-136); BILIRUBIN,TOTAL 0.5 MG/DL (0.1-1.0); BUN/CREATININE RATIO 15; CALCIUM 10.1 MG/DL (8.5-10.1); CARBON DIOXIDE 22 MMOL/L (21-32); CHLORIDE 106 MMOL/L (98-107); CREATININE SERUM 0.89 MG/DL (0.60-1.30); GFR ESTIMATED > 60; GLUCOSE 108 MG/DL (70-105); POTASSIUM 3.9 MMOL/L (3.6-5.0); SODIUM 138 MMOL/L (135-145); TOTAL PROTEIN 7.9 GM/DL (6.4-8.2)
== END 2018-03-19 | disposition home or self-care (01) ==
LOC: ONC 11:01
PROVIDERS: ATTEND Internal Medicine Hematology & Oncology
DX: C18.2 Malignant neoplasm of ascending colon (principal); D64.9 Anemia, unspecified; R91.8 Other nonspecific abnormal finding of lung field; N28.1 Cyst of kidney, acquired; R59.0 Localized enlarged lymph nodes; M47.816 Spondylosis without myelopathy or radiculopathy, lumbar region; F17.210 Nicotine dependence, cigarettes, uncomplicated; Z79.899 Other long term (current) drug therapy
CPT/HCPCS: 36415; 80053; 82378; 85025; 99213

== ENCOUNTER → 2018-05-18 | Outpatient (CLI) | payer MEDICARE, OTHER ==
[~2018-05-18] MED LIST changes: +CATHETER FLUSH 10 ML SYR IV PRN; +IOHEXOL 350 MG/ML 100 ML (OMNIPAQUE 350) VIAL IV ONE; +NS 250 ML (IVPB) BAG IV ONE; +RECEIVED CONTRAST (Hold Metformin) IV SCH
--- NOTE | 2018-05-18 12:43 | Diagnostic Imaging Report ---
PROCEDURE: CT chest and abdomen with and without contrast TECHNIQUE: Multiple axial CT images through the thorax and abdomen were obtained with and without intravenous contrast. INDICATION: Colon carcinoma. COMPARISON: Comparison is made with prior CT from 02/23/2018. FINDINGS: CT chest: No axillary lymphadenopathy is detected. Small lymph nodes are identified in the mediastinum. No definite pathologically enlarged nodes are seen. Bozena are unremarkable. No pericardial or pleural fluid is detected. Innumerable pulmonary nodules are again seen throughout both lungs. Marker nodule in the medial left lower lobe is stable at 12 cm. Mass in the medial aspect of the right lower lobe is stable at 14 mm compared with 15 mm. The remainder of the nodules all appear to be very similar to prior exam. No definite new nodule is seen. IMPRESSION: Stable bilateral pulmonary nodules when compared with examination from 02/23/2018. No definite thoracic lymphadenopathy is detected. CT abdomen: No discrete liver mass is detected. The gallbladder is surgically absent. No biliary ductal dilatation is seen. The pancreas and spleen are unremarkable. No adrenal mass is detected. Kidneys are unremarkable. Aorta is normal in caliber. The prominent lymph nodes in the central retroperitoneum previously described appear similar. A left periaortic node measures 13 mm compared with 14 mm. Hepatogastric node measures 14 mm x 10 mm compared with 11 mm x 9 mm. Additional periceliac nodes appear to be similar. Bowel loops are normal in caliber. There is no ascites. IMPRESSION: Overall stable central retroperitoneal lymphadenopathy when compared with study from 02/23/2018. Hepatogastric node may be slightly larger compared with prior. No new abnormality is seen. Dictated by: Dictated on workstation # [id number]
== END ==
LOC: RAD 10:43
PROVIDERS: ATTEND Internal Medicine Hematology & Oncology
DX: C18.2 Malignant neoplasm of ascending colon (principal); R59.0 Localized enlarged lymph nodes; R91.8 Other nonspecific abnormal finding of lung field; Z90.49 Acquired absence of other specified parts of digestive tract
CPT/HCPCS: 71270; 74170

== ENCOUNTER 2018-05-25 13:32 | Outpatient (RCR) | payer MEDICARE, OTHER ==
[2018-05-18 10:59] LABS: BASOPHILS % (AUTO) 0 % (0-10); EOSINOPHILS # (AUTO) 0.1 10^3/uL (0.0-0.3); EOSINOPHILS % (AUTO) 1 % (0-10); HEMATOCRIT 39 % (35-52); HEMOGLOBIN 12.8 G/DL (11.5-16.0); LYMPHOCYTES # (AUTO) 1.7 X 10^3 (1.0-4.0); LYMPHOCYTES % (AUTO) 14 % (12-44); MEAN CORPUSCULAR HEMOGLOBIN 30 PG (25-34); MEAN CORPUSCULAR HGB CONC 33 G/DL (32-36); MEAN CORPUSCULAR VOLUME 91 FL (80-99); MEAN PLATELET VOLUME 11.2 FL (7.4-10.4); MONOCYTES # (AUTO) 0.8 X 10^3 (0.0-1.0); MONOCYTES % (AUTO) 6 % (0-12); NEUTROPHILS # (AUTO) 9.7 X 10^3 (1.8-7.8); NEUTROPHILS % (AUTO) 79 % (42-75); PLATELET COUNT 192 10^3/uL (130-400); WHITE BLOOD COUNT 12.3 10^3/uL (4.3-11.0)
[2018-05-18 11:27] LABS: ALANINE AMINOTRANSFERASE 11 U/L (0-55); ALBUMIN 4.1 GM/DL (3.2-4.5); ALKALINE PHOSPHATASE 74 U/L (40-136); BILIRUBIN,TOTAL 0.7 MG/DL (0.1-1.0); BUN/CREATININE RATIO 12; CALCIUM 9.7 MG/DL (8.5-10.1); CARBON DIOXIDE 21 MMOL/L (21-32); CHLORIDE 108 MMOL/L (98-107); CREATININE SERUM 0.83 MG/DL (0.60-1.30); GFR ESTIMATED > 60; GLUCOSE 97 MG/DL (70-105); POTASSIUM 4.1 MMOL/L (3.6-5.0); SODIUM 140 MMOL/L (135-145); TOTAL PROTEIN 7.5 GM/DL (6.4-8.2)
[~2018-05-25 13:32] MED LIST changes: -CATHETER FLUSH 10 ML SYR IV PRN; -IOHEXOL 350 MG/ML 100 ML (OMNIPAQUE 350) VIAL IV ONE; +LOSA25TA41 PO; -LOSA25TA6 PO; -NS 250 ML (IVPB) BAG IV ONE; -RECEIVED CONTRAST (Hold Metformin) IV SCH
== END 2018-08-16 | disposition home or self-care (01) ==
LOC: ONC 13:32
PROVIDERS: ATTEND Internal Medicine Hematology & Oncology
DX: C18.2 Malignant neoplasm of ascending colon (principal); R59.0 Localized enlarged lymph nodes; R91.8 Other nonspecific abnormal finding of lung field; D64.9 Anemia, unspecified; N28.1 Cyst of kidney, acquired; M47.816 Spondylosis without myelopathy or radiculopathy, lumbar region; F17.210 Nicotine dependence, cigarettes, uncomplicated; Z90.49 Acquired absence of other specified parts of digestive tract; Z79.899 Other long term (current) drug therapy
CPT/HCPCS: 36415; 80053; 82378; 85025; 99213

== ENCOUNTER 2018-08-24 09:19 | Outpatient (RCR) | payer MEDICARE, OTHER ==
[2018-08-24 09:40] LABS: BASOPHILS % (AUTO) 0 % (0-10); EOSINOPHILS # (AUTO) 0.3 10^3/uL (0.0-0.3); EOSINOPHILS % (AUTO) 4 % (0-10); HEMATOCRIT 42 % (35-52); LYMPHOCYTES # (AUTO) 1.8 X 10^3 (1.0-4.0); LYMPHOCYTES % (AUTO) 27 % (12-44); MEAN CORPUSCULAR HEMOGLOBIN 30 PG (25-34); MEAN CORPUSCULAR HGB CONC 34 G/DL (32-36); MEAN CORPUSCULAR VOLUME 90 FL (80-99); MEAN PLATELET VOLUME 10.8 FL (7.4-10.4); MONOCYTES # (AUTO) 0.4 X 10^3 (0.0-1.0); MONOCYTES % (AUTO) 7 % (0-12); NEUTROPHILS # (AUTO) 4.3 X 10^3 (1.8-7.8); NEUTROPHILS % (AUTO) 63 % (42-75); PLATELET COUNT 184 10^3/uL (130-400); RED CELL DISTRIBUTION WIDTH 15.1 % (10.0-14.5); WHITE BLOOD COUNT 6.8 10^3/uL (4.3-11.0)
[2018-08-24 10:05] LABS: ALBUMIN 4.4 GM/DL (3.2-4.5); BILIRUBIN,TOTAL 0.5 MG/DL (0.1-1.0); CALCIUM 9.8 MG/DL (8.5-10.1); CREATININE SERUM 1.07 MG/DL (0.60-1.30); POTASSIUM 3.9 MMOL/L (3.6-5.0); TOTAL PROTEIN 7.5 GM/DL (6.4-8.2)
[2018-11-11] MEDS ORDERED: NYST1000 PO (20:02)
[2018-11-20] MEDS ORDERED: ASPI325T32 PO (11:17)
[2018-11-20] MEDS ORDERED: ROSU40TA22 PO (11:17)
[2018-11-20] MEDS ORDERED: POTA8CAP9 PO (11:17)
[2018-11-20] MEDS ORDERED: BUPR-168 PO (11:17)
[2018-11-20] MEDS ORDERED: LOSA100T57 PO (11:17)
[2018-11-20] MEDS ORDERED: NITR100C10 PO (11:17)
[2018-11-20] MEDS ORDERED: METO-395 PO (11:17)
[2018-11-20] MEDS ORDERED: FURO40TA4 PO (11:19)
== END 2018-11-22 | disposition home or self-care (01) ==
LOC: ONC 09:19
PROVIDERS: ATTEND Internal Medicine Hematology & Oncology
DX: C18.2 Malignant neoplasm of ascending colon (principal); R59.0 Localized enlarged lymph nodes; R91.8 Other nonspecific abnormal finding of lung field; D64.9 Anemia, unspecified; N28.1 Cyst of kidney, acquired; M47.816 Spondylosis without myelopathy or radiculopathy, lumbar region; F17.210 Nicotine dependence, cigarettes, uncomplicated; Z90.49 Acquired absence of other specified parts of digestive tract; Z79.899 Other long term (current) drug therapy
CPT/HCPCS: 36415; 80053; 82378; 85025; 99213

== ENCOUNTER 2018-11-11 18:21 | Emergency (ER) | payer MEDICARE, OTHER | END 2018-11-11 20:28 | disposition home or self-care (01) | LOC: ER 18:21 ==

== ENCOUNTER → 2018-11-14 | Outpatient (CLI) | payer MEDICARE, OTHER ==
[~2018-11-14] MED LIST changes: +NYST1000 PO
--- NOTE | 2018-11-14 16:41 | Diagnostic Imaging Report ---
INDICATION: Dyspnea. TIME OF EXAM: 4:29 p.m. Comparison is made with prior chest from 05/22/2016. FINDINGS: The heart size is normal. There are nodular densities throughout both lungs suggestive of pulmonary metastatic disease. This correlates with findings on CT chest from 05/18/2018. No effusion is identified. There is no pneumothorax. IMPRESSION: Bilateral pulmonary nodules suggestive of pulmonary metastatic disease. No other significant abnormality is seen. Dictated by: Dictated on workstation # [id number]
== END ==
LOC: RAD 16:08
PROVIDERS: ATTEND Nurse Practitioner Family
DX: R91.8 Other nonspecific abnormal finding of lung field (principal); R06.00 Dyspnea, unspecified
CPT/HCPCS: 71046

== ENCOUNTER 2018-11-19 16:13 | Inpatient (IN) | payer MEDICARE, OTHER ==
[~2018-11-19] VITALS: Ht 152.4 cm; Wt 48.6 kg
--- NOTE | 2018-11-19 16:46 | NUR ---
Pt ambulated to ER5 from waiting room with daughter et granddaughter. Reports tx UTI over a week ago with increaed abd pain. At urgent care today et mass palpated, sent to ED. Firm mass palpated over mid abd. Pt reports pain 5/10.
[2018-11-19] MEDS ORDERED: NS IV 1000 ML 1,000 ML IV STA (16:56)
--- NOTE | 2018-11-19 17:03 | NUR ---
20G SL placed to Lt AC x1 attempt et blood drawn from site
[2018-11-19 17:15] LABS: BASOPHILS % (AUTO) 0 % (0-10); EOSINOPHILS % (AUTO) 0 % (0-10); HEMATOCRIT 33 % (35-52); HEMOGLOBIN 10.9 G/DL (11.5-16.0); LYMPHOCYTES # (AUTO) 1.2 X 10^3 (1.0-4.0); LYMPHOCYTES % (AUTO) 8 % (12-44); MEAN CORPUSCULAR HEMOGLOBIN 28 PG (25-34); MEAN CORPUSCULAR HGB CONC 33 G/DL (32-36); MEAN CORPUSCULAR VOLUME 84 FL (80-99); MONOCYTES # (AUTO) 1.5 X 10^3 (0.0-1.0); MONOCYTES % (AUTO) 10 % (0-12); NEUTROPHILS # (AUTO) 11.4 X 10^3 (1.8-7.8); NEUTROPHILS % (AUTO) 81 % (42-75); PLATELET COUNT 366 10^3/uL (130-400); RED CELL DISTRIBUTION WIDTH 14.8 % (10.0-14.5); WHITE BLOOD COUNT 14.1 10^3/uL (4.3-11.0)
[2018-11-19 17:24] LABS: INR 1.4 (0.8-1.4); PROTHROMBIN TIME PATIENT 17.3 SEC (12.2-14.7)
--- NOTE | 2018-11-19 17:30 | NUR ---
Pt straight cathed et drained 50cc clear, dark janet urine. Sent to lab for UA
[2018-11-19 17:31] LABS: ALANINE AMINOTRANSFERASE 224 U/L (0-55); ALBUMIN 3.1 GM/DL (3.2-4.5); ALKALINE PHOSPHATASE 810 U/L (40-136); BILIRUBIN,TOTAL 2.1 MG/DL (0.1-1.0); BUN/CREATININE RATIO 16; CALCIUM 9.7 MG/DL (8.5-10.1); CARBON DIOXIDE 22 MMOL/L (21-32); CHLORIDE 96 MMOL/L (98-107); CREATININE SERUM 0.89 MG/DL (0.60-1.30); GFR ESTIMATED > 60; GLUCOSE 101 MG/DL (70-105); POTASSIUM 3.6 MMOL/L (3.6-5.0); SODIUM 132 MMOL/L (135-145)
[2018-11-19 17:36] LABS: ANISOCYTOSIS SLIGHT; BAND NEUTROPHILS 1 %; BASOPHILS % (MANUAL) 0 %; EOSINOPHILS % (MANUAL) 0 %; HYPOCHROMASIA SLIGHT; LYMPHOCYTES % (MANUAL) 6 %; MONOCYTES % (MANUAL) 4 %; NEUTROPHILS % (MANUAL) 89 %; ROULEAUX SLIGHT
--- NOTE | 2018-11-19 17:36 | NUR ---
Lactic acid 2.56. Dr. Traylor notified.
--- NOTE | 2018-11-19 17:38 | NUR ---
X-ray in room to obtain CXR
[2018-11-19 17:42] LABS: CLARITY,URINE CLEAR; GLUCOSE, URINE (UA) NEGATIVE (NEGATIVE); KETONES,URINE NEGATIVE (NEGATIVE); LEUKOCYTE ESTERASE ,URINE 1+ (NEGATIVE); NITRITE,URINE POSITIVE (NEGATIVE); PH,URINE 6 (5-9); PROTEIN,URINE 4+ (NEGATIVE); UROBILINOGEN,URINE 8 MG/DL (NORMAL)
[2018-11-19 17:45] LABS: BILIRUBIN,URINE 2+ (NEGATIVE); COLOR,URINE DARK YELLOW
--- NOTE | 2018-11-19 17:47 | ED Abdominal Pain ---
General Chief Complaint: Abdominal/GI Problems Stated Complaint: ABDOMEN HARD TO TOUCH Nursing Triage Note: TO TRIAGE VIA AMB. HAS BEEN SEEN HERE AND DR HERRERA IN THE LAST WEEK ET DX WITH UTI AND PUT ON MACROBID. WENT TO URGENT CARE TODAY DUE TO NOT FEELING ANY BETTER AND SEVERE ABD PAIN. FAMILY STATES DR THERE FELT SOMETHING HARD IN HER ABD AND SENT HER TO THE ER. Sepsis Screen: No Definite Risk Source of Information: Patient Exam Limitations: No Limitations History of Present Illness Date Seen by Provider: Nov 19, 2018 Time Seen by Provider: 16:50 Initial Comments Here with report of abdominal mass. Apparently she has been seen a couple times over the last week and had concerns for urinary tract infection which is still being evaluated. Seen at urgent care today and noted to have mass in the upper abdomen. This is concerning as patient has history of colon cancer. She had negative CT scan and April of last year. She is due to have repeat scan done on November 23. Has had intermittent confusion over the last week and worse today. No fevers. Not eating or drinking well and overall feels weak and not well. Daughter states she is more confused today. Does have red urine. Timing/Duration: 1 Week, Getting Worse Severity/Quality: Moderate, Aching Location: RUQ, LUQ Radiation: No Radiation Activities at Onset: None Modifying Factors: Improves With Resting Associated Symptoms: No Back Pain, No Chest Pain, No Fever/Chills; Nausea/Vomiting; No Shortness of Air; Swelling/Mass in Abdomen, Weakness Allergies and Home Medications Allergies Coded Allergies: oxycodone (Unverified Allergy, Mild, 01/27/17) Home Medications Aspirin 81 Mg Tabec, 81 MG PO DAILY, (Reported) Metoprolol Succinate 100 Mg Tab.sr.24h, 100 MG PO DAILY, (Reported) Multivitamins 1 Tab Tablet, 1 TAB PO DAILY, (Reported) Nystatin 100,000 Unit/1 Ml Oral.susp, 500,000 UNIT PO TID Prescribed by: DANELLE MAYO on 11/11/182001 Pantoprazole Sodium 40 Mg Tablet.dr, 40 MG PO DAILY Prescribed by: MESHA EWING on 12/31/15 1336 Rosuvastatin Calcium 40 Mg Tablet, 40 MG PO DAILY, (Reported) Patient Home Medication List Home Medication List Reviewed: Yes Review of Systems Review of Systems Constitutional: see HPI; No chills, No fever EENTM: No Symptoms Reported Respiratory: No Symptoms Reported Cardiovascular: No Symptoms Reported Gastrointestinal: See HPI Genitourinary: See HPI Musculoskeletal: no symptoms reported Skin: change in color; No lesions Psychiatric/Neurological: No Symptoms Reported Endocrine: No Symptoms Reported All Other Systems Reviewed Negative Unless Noted: Yes Past Bctdadl-Vdamuf-Ergknx Hx Past Med/Social Hx: Reviewed Nursing Past Med/Soc Hx Patient Social History Alcohol Use: Denies Use Recreational Drug Use: No Smoking Status: Current Everyday Smoker Type Used: Cigarettes Recent Foreign Travel: No Contact w/Someone Who Travel: No Recent Infectious Disease Expo: No Recent Hopitalizations: No Immunizations Up To Date Tetanus Booster (TDap): Unknown Date of Pneumonia Vaccine: Apr 20, 2014 Seasonal Allergies Seasonal Allergies: No Past Medical History Surgeries: Yes (aorta graft, bilat knee scope, stent in leg) Bowel Surgery, Gallbladder, Hysterectomy, Orthopedic Respiratory: No Currently Using CPAP: No Currently Using BIPAP: No Cardiac: Yes High Cholesterol, Hypertension Neurological: No 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 Disorders: No Female 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 Disorders: Denies [employer] History: Hysterectomy Sexually Transmitted Disease: No HIV/AIDS: No Gastrointestinal: Yes (HX COLON CA) Gastroesophageal Reflux Musculoskeletal: Yes (HX PELVIC FX) Arthritis Endocrine: No Loss of Vision: Bilateral Hearing Impairment: Denies Cancer: Yes Colon Did You Recieve Any Treatments: Yes What Type of Treatment Did You: Chemotherapy Psychosocial: No Integumentary: No Blood Disorders: No Adverse Reaction/Blood Tranf: No (N/A) Family Medical History Reviewed Nursing Family Hx Colon cancer G8 BROTHER Diabetes mellitus 19 FATHER Physical Exam Vital Signs Vital Signs - First Documented 11/19/18 11/19/18 16:27 17:49 Temp 97.6 Pulse 111 Resp 16 B/P (MAP) 138/58 (84) Pulse Ox 99 O2 Delivery Room Air FiO2 99 Capillary Refill : Less Than 3 Seconds Height/Weight/BMI Height: 5'0.00" Weight: 105lbs. 1.0oz. [id number]; 20.7 BMI Method:Actual General Appearance: WD/WN, no apparent distress HEENT: PERRL/EOMI, pharynx normal Neck: full range of motion, supple Respiratory: lungs clear, normal breath sounds Cardiovascular: no murmur, tachycardia Gastrointestinal: soft, mass (liver mass palpable throughout upper abdomen. Lower abdominal fullness noted as well.) Extremities: non-tender, normal inspection Back: normal inspection, no CVA tenderness, no vertebral tenderness Neurologic/Psychiatric: alert, other Skin: warm/dry, jaundice (does appear to have some underlying jaundice or abnormal yellowish skin tone.) Focused Exam Lactate Level 11/19/18 17:03: Lactic Acid Level 2.56*H 11/19/18 19:00: Lactic Acid Level Laboratory Tests Test 11/19/18 17:03 11/19/18 19:00 Lactic Acid Level 2.56 MMOL/L (0.50-2.00) *H Progress/Results/Core Measures Results/Orders Lab Results Laboratory Tests Test 11/19/18 17:03 11/19/18 17:25 11/19/18 18:28 11/19/18 19:00 Range/Units White Blood Count 14.1 H 4.3-11.0 10^3/uL Red Blood Count 3.91 L 4.35-5.85 10^6/uL Hemoglobin 10.9 L 11.5-16.0 G/DL Hematocrit 33 L 35-52 % Mean Corpuscular Volume 84 80-99 FL Mean Corpuscular Hemoglobin 28 25-34 PG Mean Corpuscular Hemoglobin Concent 33 32-36 G/DL Red Cell Distribution Width 14.8 H 10.0-14.5 % Platelet Count 366 130-400 10^3/uL Mean Platelet Volume 11.0 H 7.4-10.4 FL Neutrophils (%) (Auto) 81 H 42-75 % Lymphocytes (%) (Auto) 8 L 12-44 % Monocytes (%) (Auto) 10 0-12 % Eosinophils (%) (Auto) 0 0-10 % Basophils (%) (Auto) 0 0-10 % Neutrophils # (Auto) 11.4 H 1.8-7.8 X 10^3 Lymphocytes # (Auto) 1.2 1.0-4.0 X 10^3 Monocytes # (Auto) 1.5 H 0.0-1.0 X 10^3 Eosinophils # (Auto) 0.0 0.0-0.3 10^3/uL Basophils # (Auto) 0.0 0.0-0.1 10^3/uL Neutrophils % (Manual) 89 % Lymphocytes % (Manual) 6 % Monocytes % (Manual) 4 % Eosinophils % (Manual) 0 % Basophils % (Manual) 0 % Band Neutrophils 1 % Hypochromasia SLIGHT Anisocytosis SLIGHT Rouleau SLIGHT Prothrombin Time 17.3 H 12.2-14.7 SEC INR Comment 1.4 0.8-1.4 Activated Partial Thromboplast Time 36 H 24-35 SEC Sodium Level 132 L 135-145 MMOL/L Potassium Level 3.6 3.6-5.0 MMOL/L Chloride Level 96 L 98-107 MMOL/L Carbon Dioxide Level 22 21-32 MMOL/L Anion Gap 14 5-14 MMOL/L Blood Urea Nitrogen 14 7-18 MG/DL Creatinine 0.89 0.60-1.30 MG/DL Estimat Glomerular Filtration Rate > 60 BUN/Creatinine Ratio 16 Glucose Level 101 70-105 MG/DL Lactic Acid Level 2.56 *H 0.50-2.00 MMOL/L Calcium Level 9.7 8.5-10.1 MG/DL Corrected Calcium 10.4 H 8.5-10.1 MG/DL Total Bilirubin 2.1 H 0.1-1.0 MG/DL Aspartate Amino Transf (AST/SGOT) 297 H 5-34 U/L Alanine Aminotransferase (ALT/SGPT) 224 H 0-55 U/L Alkaline Phosphatase 810 H 40-136 U/L Total Protein 7.0 6.4-8.2 GM/DL Albumin 3.1 L 3.2-4.5 GM/DL Urine Color DARK YELLOW Urine Clarity CLEAR Urine pH 6 5-9 Urine Specific Ulmer 1.015 L 1.016-1.022 Urine Protein 4+ NEGATIVE Urine Glucose (UA) NEGATIVE NEGATIVE Urine Ketones NEGATIVE NEGATIVE Urine Nitrite POSITIVE H NEGATIVE Urine Bilirubin 2+ H NEGATIVE Urine Urobilinogen 8 H NORMAL MG/DL Urine Leukocyte Esterase 1+ H NEGATIVE Urine RBC (Auto) 5+ H NEGATIVE Urine RBC 0-2 /HPF Urine WBC 2-5 /HPF Urine Squamous Epithelial Cells 0-2 /HPF Urine Crystals PRESENT H /LPF Urine Amorphous Sediment FEW NOLAN URATES H /LPF Urine Bacteria TRACE /HPF Urine Casts PRESENT /LPF Urine Hyaline Casts 0-2 H /LPF Urine Granular Casts 2-5 H /LPF Urine Mucus SMALL H /LPF Urine Culture Indicated CULTURE PENDING Ammonia 18 11-32 UMOL/L My Orders Orders - AUGIE DUQUE MD Cbc With Automated Diff (11/19/18 16:56) Comprehensive Metabolic Panel (11/19/18 16:56) Blood Culture (11/19/18 16:56) Sputum Culture (11/19/18 16:56) Urinalysis (11/19/18 16:56) Urine Culture (11/19/18 16:56) Protime With Inr (11/19/18 16:56) Partial Thromboplastin Time (11/19/18 16:56) Chest 1 View, Ap/Pa Only (11/19/18 16:56) Ed Iv/Invasive Line Start (11/19/18 16:56) Vital Signs Adult Sepsis Patie Q15M (11/19/18 16:56) O2 (11/19/18 16:56) Remove Rings In Anticipation O (11/19/18 16:56) Lactic Acid Analyzer (11/19/18 16:56) Ns Iv 1000 Ml (Sodium Chloride 0.9%) (11/19/18 16:56) Manual Differential (11/19/18 17:03) Ct Chest/Abdomen/Pelvis W (11/19/18 17:51) Ed Iv/Invasive Line Start (11/19/18 17:53) Ns Iv 500 Ml (Sodium Chloride 0.9%) (11/19/18 17:53) Iohexol Injection (Omnipaque 350 Mg/Ml 1 (11/19/18 18:30) Received Contrast (Hold Metformin- Contr (11/19/18 18:30) Ns (Ivpb) (Sodium Chloride 0.9% Ivpb Bag (11/19/18 18:30) Ammonia (11/19/18 18:27) Ceftriaxone For Iv Use (Rocephin For I (11/19/18 19:15) Carcinoembryonic Antigen (11/19/18 19:06) Medications Given in ED Current Medications Medications Dose Ordered Sig/Stephanie Route Start Time Stop Time Status Last Admin Dose Admin Iohexol 100 ml ONCE ONCE IV 11/19/18 18:30 11/19/18 18:31 DC 11/19/18 18:19 100 ML Sodium Chloride 100 ml ONCE ONCE IV 11/19/18 18:30 11/19/18 18:31 DC 11/19/18 18:19 100 ML Sodium Chloride 500 ml @ 0 mls/hr Q0M ONCE IV 11/19/18 17:53 6/2/19 17:55 DC 11/19/18 18:55 500 MLS/HR Vital Signs/I&O 11/19/18 11/19/18 16:27 17:49 Temp 97.6 Pulse 111 Resp 16 B/P (MAP) 138/58 (84) Pulse Ox 99 99 O2 Delivery Room Air Room Air FiO2 99 Blood Pressure Mean: 84 Progress Progress Note : Progress Note Seen and evaluated. IV, labs, UA, blood cultures, lactic acid and chest x-ray ordered. We will get CT abdomen and pelvis but are awaiting chemistry studies. We would like to do contrast IV. Normal saline 500 mL bolus ordered. Monitor patient. 1845: I have had a long discussion with the patient and family regarding findings on CT including significance liver metastasis as well as lung metastasis that is all new since 18 May 2018. She did have some lymph nodes in the lungs that had been unchanged up until that point that now she has multiple metastatic lesions in the lungs and the liver is quickly replaced with tumor. Patient also noted to have urinary tract infection. Ammonia level has been added. Acute acid slightly elevated. She is receiving normal saline 500 mL bolus second dose ordered. I did discuss the case with Dr. Dr. Powers and she accepts patient for admission for Dr. Kohli. I did discuss in depth with the family regarding her resuscitation status and patient and family agree that she would be DO NOT RESUSCITATE now. 1901: I did discuss the case with Dr. Roach and he will see the patient in consult. We have ordered palliative care consult regarding goals of care. Family was appreciative of that. I did discuss my concerns about the rapidity of the of the growth of the tumors and the multiple metastatic lesions. Admit, inpatient status. Patient and family agree with plan. Diagnostic Imaging Diagonstic Imaging: Xray Plain Films/CT/US/NM/MRI: chest Comments [facility] [place] NAME: KATJA SALDAÑA [facility] REC#: [id number] PT STATUS: REG ER : 1945 PHYSICIAN: AUGIE DUQUE MD ADMIT DATE: 11/19/18/ER Draft Date of Exam:11/19/18 CHEST 1 VIEW, AP/PA ONLY INDICATION: Weakness. COMPARISON: 11/14/2017. EXAMINATION: Single view of the chest was obtained. FINDINGS: Multiple bilateral pulmonary nodules are noted. Largest nodules are present in the right lower lung. These have not changed in appearance. No acute infiltrates have occurred. The heart is not enlarged. No evidence of pulmonary edema. No pneumothorax or pleural effusion. Heart is not enlarged. No bony lesion. IMPRESSION: Scattered bilateral pulmonary nodules without acute change. Dictated on workstation # [id number] Dict: 11/19/18 1748 Trans: 11/19/[address] [facility] [id number] Interpreted by: FRANCOIS ALVAREZ MD Electronically signed by: Diagonsbrandi Imaging: CT Plain Films/CT/US/NM/MRI: chest, abdomen, pelvis Comments NAME: KTAJA SALDAÑA [facility] REC#: [id number] PT STATUS: REG ER : 1945 PHYSICIAN: AUGIE DUQUE MD ADMIT DATE: 11/19/18/ER Draft Date of Exam:11/19/18 CT CHEST/ABDOMEN/PELVIS W PROCEDURE: CT chest, abdomen, and pelvis with contrast. TECHNIQUE: Multiple contiguous axial images were obtained through the chest, abdomen, and pelvis after the administration of intravenous contrast. Auto Exposure Controls were utilized during the CT exam to meet ALARA standards for radiation dose reduction. INDICATION: History of urinary tract infection. Patient is on Macrobid. Family states the doctor felt something in her abdomen. History of colon cancer with metastatic lung disease. COMPARISON: CT of the chest, abdomen and pelvis from 05/18/2018. FINDINGS: CT CHEST: There are multiple pulmonary nodules scattered diffusely throughout the upper and lower lobes of both lungs. These were described previously. Overall appearance shows slight increase in overall number. The largest nodule previously measured in the left lower lobe was 12 mm, today it measures 18 mm. The nodule in the right costophrenic angle previously measured 14 mm, today it measures 16 mm. There also appears to be an increased number of nodules. There is good opacification of the aorta and pulmonary arteries with atherosclerotic changes of the aorta. There are scattered mediastinal lymph nodes and hilar lymph nodes though these have not changed significantly in size. There are no blastic or lytic bony lesions present. IMPRESSION: Findings consistent with diffuse metastatic disease to the lung with increasing number and size of nodules since previous exam. CT ABDOMEN/PELVIS: The liver has been completely replaced by hypodense metastatic nodules with marked hepatomegaly. These do show some rim enhancement with IV contrast. The liver has nearly doubled in size. The gallbladder is absent. Bile ducts are not dilated. Pancreas is atrophic. Spleen is normal. The adrenal glands appear normal. The kidneys appear normal. There is good enhancement of the aorta and abdominal vessels with moderate atherosclerotic change. The stomach and small bowel are not distended. The colon shows a moderate amount of stool present, especially in the ascending and transverse colon. There is no evidence of colonic obstruction. There is no pelvic mass. The uterus is absent. There is no blastic or lytic bony lesion. IMPRESSION: Findings of diffuse liver metastasis developing since previous exam. The liver is completely replaced with tumor and has more than doubled in size since previous examination. Dictated on workstation # [id number] Dict: 11/19/18 1821 Trans: 11/19/[address] [facility] [id number] Interpreted by: FRANCOIS ALVAREZ MD Electronically signed by: Departure Communication (Admissions) Time/Spoke to Admitting Phy: 18:46 Time/Spoke to Consulting Phy: 19:02 Impression Primary Impression: Metastatic carcinoma involving liver with unknown primary site Additional Impressions: Metastatic cancer to lung of unknown cell type Urinary tract infection Qualified Codes: N30.01 - Acute cystitis with hematuria Disposition: ADMITTED INPATIENT Condition: Stable Admissions Decision to Admit Reason: Admit from ER (General) Decision to Admit/Date: Nov 19, 2018 Time/Decision to Admit Time: 18:46 Departure-Patient Inst. Referrals: NEMESIO KOHLI DO (PCP/Family) Primary Care Physician AUGIE DUQUE MD Nov 19, 2018 17:47
[2018-11-19 17:49] LABS: AMORPHOUS SEDIMENT,UR FEW AMOR URATES /LPF; BACTERIA,URINE TRACE /HPF; RBC,URINE 0-2 /HPF; SQUAMOUS EPITHELIAL CELL,UR 0-2 /HPF
[2018-11-19 17:50] LABS: HYALINE CASTS, URINE 0-2 /LPF
[2018-11-19] MEDS ORDERED: NS IV 500 ML 500 ML IV ONE (17:53)
--- NOTE | 2018-11-19 17:53 | Diagnostic Imaging Report ---
INDICATION: Weakness. COMPARISON: 11/14/2017. EXAMINATION: Single view of the chest was obtained. FINDINGS: Multiple bilateral pulmonary nodules are noted. Largest nodules are present in the right lower lung. These have not changed in appearance. No acute infiltrates have occurred. The heart is not enlarged. No evidence of pulmonary edema. No pneumothorax or pleural effusion. Heart is not enlarged. No bony lesion. IMPRESSION: Scattered bilateral pulmonary nodules without acute change. Dictated by: Dictated on workstation # [id number]
--- NOTE | 2018-11-19 18:05 | NUR ---
Pt to wheelchair et taken to imaging for CT
--- NOTE | 2018-11-19 18:20 | NUR ---
Pt returned from CT. Daughter et granddaughter remain at bedside, denies needs. Call light within reach.
--- NOTE | 2018-11-19 18:28 | NUR ---
Ammonia level drawn from SL
[2018-11-19] MEDS ORDERED: HOLD METFORMIN - RECEIVED CONTRAST 20 ML VIAL IV SCH (18:30)
[2018-11-19] MEDS ORDERED: IOHEXOL 350 MG/ML 100 ML (OMNIPAQUE 350) VIAL IV ONE (18:30)
[2018-11-19] MEDS ORDERED: NS 100 ML (IVPB) BAG IV ONE (18:30)
--- NOTE | 2018-11-19 18:44 | Diagnostic Imaging Report ---
PROCEDURE: CT chest, abdomen, and pelvis with contrast. TECHNIQUE: Multiple contiguous axial images were obtained through the chest, abdomen, and pelvis after the administration of intravenous contrast. Auto Exposure Controls were utilized during the CT exam to meet ALARA standards for radiation dose reduction. INDICATION: History of urinary tract infection. Patient is on Macrobid. Family states the doctor felt something in her abdomen. History of colon cancer with metastatic lung disease. COMPARISON: CT of the chest, abdomen and pelvis from 05/18/2018. FINDINGS: CT CHEST: There are multiple pulmonary nodules scattered diffusely throughout the upper and lower lobes of both lungs. These were described previously. Overall appearance shows slight increase in overall number. The largest nodule previously measured in the left lower lobe was 12 mm, today it measures 18 mm. The nodule in the right costophrenic angle previously measured 14 mm, today it measures 16 mm. There also appears to be an increased number of nodules. There is good opacification of the aorta and pulmonary arteries with atherosclerotic changes of the aorta. There are scattered mediastinal lymph nodes and hilar lymph nodes though these have not changed significantly in size. There are no blastic or lytic bony lesions present. IMPRESSION: Findings consistent with diffuse metastatic disease to the lung with increasing number and size of nodules since previous exam. CT ABDOMEN/PELVIS: The liver has been completely replaced by hypodense metastatic nodules with marked hepatomegaly. These do show some rim enhancement with IV contrast. The liver has nearly doubled in size. The gallbladder is absent. Bile ducts are not dilated. Pancreas is atrophic. Spleen is normal. The adrenal glands appear normal. The kidneys appear normal. There is good enhancement of the aorta and abdominal vessels with moderate atherosclerotic change. The stomach and small bowel are not distended. The colon shows a moderate amount of stool present, especially in the ascending and transverse colon. There is no evidence of colonic obstruction. There is no pelvic mass. The uterus is absent. There is no blastic or lytic bony lesion. IMPRESSION: Findings of diffuse liver metastasis developing since previous exam. The liver is completely replaced with tumor and has more than doubled in size since previous examination. Dictated by: Dictated on workstation # [id number]
[2018-11-19] MEDS ORDERED: cefTRIAXone FOR IV USE 1,000 MG in WATER (STERILE) FOR INJECTION 10 ML IV ONE (19:15)
--- NOTE | 2018-11-19 19:53 | NUR ---
Report to [facility] Montelongo on 4th floor
--- NOTE | 2018-11-19 20:00 | NUR ---
Patient admitted to room 418. A/Ox4 and accompanied by spouse and sister. Transfers easily from cart to bed, slight weak and unsteady. Skin is pale and slight jaundice. IV SL to left a/c noted. Patient is on room air, no distress noted. Call light given and explained admission routines and plan of care. Assessment complete, see flow sheets.
[2018-11-19 20:10] VITALS: BP 149/70
[2018-11-19 20:13] VITALS: BP 149/70
[2018-11-19] MEDS ORDERED: ONDANSETRON 4 MG/2 ML (SDV) Z0FRAN IV PRN (20:45)
[2018-11-19] MEDS: NS IV 1000 ML 1,000 ML IV SCH (22:24)
[2018-11-20] VITALS: BP 143/67
[2018-11-20 04:00] VITALS: BP 138/64
[2018-11-20 04:57] LABS: BASOPHILS % (AUTO) 0 % (0-10); EOSINOPHILS # (AUTO) 0.1 10^3/uL (0.0-0.3); EOSINOPHILS % (AUTO) 1 % (0-10); HEMATOCRIT 28 % (35-52); HEMOGLOBIN 9.2 G/DL (11.5-16.0); LYMPHOCYTES # (AUTO) 1.1 X 10^3 (1.0-4.0); LYMPHOCYTES % (AUTO) 9 % (12-44); MEAN CORPUSCULAR HEMOGLOBIN 28 PG (25-34); MEAN CORPUSCULAR HGB CONC 33 G/DL (32-36); MEAN CORPUSCULAR VOLUME 84 FL (80-99); MEAN PLATELET VOLUME 10.9 FL (7.4-10.4); MONOCYTES # (AUTO) 1.2 X 10^3 (0.0-1.0); MONOCYTES % (AUTO) 10 % (0-12); NEUTROPHILS # (AUTO) 9.4 X 10^3 (1.8-7.8); NEUTROPHILS % (AUTO) 80 % (42-75); PLATELET COUNT 306 10^3/uL (130-400); RED CELL DISTRIBUTION WIDTH 14.8 % (10.0-14.5); WHITE BLOOD COUNT 11.7 10^3/uL (4.3-11.0)
[2018-11-20 05:18] LABS: ALANINE AMINOTRANSFERASE 189 U/L (0-55); ALBUMIN 2.7 GM/DL (3.2-4.5); ALKALINE PHOSPHATASE 676 U/L (40-136); BILIRUBIN,TOTAL 1.3 MG/DL (0.1-1.0); BUN/CREATININE RATIO 14; CALCIUM 8.6 MG/DL (8.5-10.1); CARBON DIOXIDE 22 MMOL/L (21-32); CHLORIDE 102 MMOL/L (98-107); CREATININE SERUM 0.76 MG/DL (0.60-1.30); GFR ESTIMATED > 60; GLUCOSE 80 MG/DL (70-105); POTASSIUM 3.2 MMOL/L (3.6-5.0); SODIUM 134 MMOL/L (135-145); TOTAL PROTEIN 5.9 GM/DL (6.4-8.2)
[2018-11-20 08:23] VITALS: BP 161/66
[2018-11-20] MEDS: morphine INJ 4 MG/ML 1 ML (VIAL/SYRINGE) IV PRN ×2 (10:38→12:33)
[2018-11-20] MEDS ORDERED: ASPI325T32 PO (11:17)
[2018-11-20] MEDS ORDERED: NITR100C10 PO (11:17)
[2018-11-20] MEDS ORDERED: METO-395 PO (11:17)
[2018-11-20] MEDS ORDERED: BUPR-168 PO (11:17)
[2018-11-20] MEDS ORDERED: LOSA100T57 PO (11:17)
[2018-11-20] MEDS ORDERED: ROSU40TA22 PO (11:17)
[2018-11-20] MEDS ORDERED: POTA8CAP9 PO (11:17)
[2018-11-20] MEDS ORDERED: FURO40TA4 PO (11:19)
--- NOTE | 2018-11-20 11:20 | NUR ---
WENT OVER THE EXT MED HX WITH PATIENT AND FAMILY IN THE ROOM. THEY VERIFIED HOW SHE TAKES HER MEDICATIONS. WHEN ASKED THE PATIENT STATES SHE TAKES ONE WHOLE LASIX TABLET EVERY DAY HOWEVER IT HAS NOT BEEN FILLED SINCE FEB 2018 FOR 1/2 TAB DAILY. I VERIFIED THIS LAST FILL DATE WITH [facility] AND FAMILY IN THE ROOM STATES WHEN THEY LOOKED THROUGH HER PILL BOTTLES THEY WERE UNABLE TO FIND THE FUROSEMIDE. I NOTED THE LAST FILL DATE ON THE MED REC. SHE STATES SHE TAKES FULL STRENGTH ASPIRIN BUT NOT DAILY, SHE ONLY TAKES IT NEEDED FOR PAIN/HEADACHES.
[2018-11-20 12:43] VITALS: BP 148/71
[2018-11-20] MEDS ORDERED: ALPRAZolam 0.25 MG (XANAX) TAB PO NR (13:00)
[2018-11-20] MEDS ORDERED: MILK OF MAGNESIA 400 MG/5 ML 30 ML UDC PO NR (15:00)
[2018-11-20] MEDS ORDERED: SENNA W/DOCUSATE (SENOKOT S) TABLET PO NR (15:00)
--- NOTE | 2018-11-20 15:07 | NUR ---
Pt is Worship. Microbiology Director provided prayer and Communion. anointed yesterday.
--- NOTE | 2018-11-20 15:14 | NUR ---
PALLIATIVE CARE consult received for this patient who has a liver mass and lung cancer. Visited with the daughter and the patient who both are very welcoming and agreeable to visit. They reported that they are planning a CT guided biopsy of the liver tomorrow. They further reported that they should be able to go home after this if the patient is eating and drinking and pain is under control. Suggested small meals more frequently and ensure either the milk based or the juice based if she cannot eat much. Suggested that I am available to answer questions about GOALS of Life and next steps in treatment when they are ready for this conversation.
[2018-11-20 15:22] VITALS: BP 143/65
[2018-11-20] MEDS: ACETAMINOPHEN 500 MG TAB (TYLENOL) PO PRN (17:08)
[2018-11-20] MEDS: NS IV 1000 ML 1,000 ML IV SCH (17:09)
[2018-11-20 19:50] VITALS: BP 126/58
[2018-11-20] MEDS: cefTRIAXone 1,000 MG/SWFI 10 ML IV PUSH IV SCH ×2 (21:10)
[2018-11-20] MEDS: SENNA W/DOCUSATE (SENOKOT S) TABLET PO SCH (21:10)
--- NOTE | 2018-11-20 21:36 | History & Physicial ---
History of Present Illness History of Present Illness Reason for visit/HPI This is a 73 year old female with a history of colon cancer who presented to the urgent care with worsening abdominal pain. She had been seen the previous week both at the ER and my office and had been treated for a UTI. The provider at the urgent care felt an abdominal mass and sent her to the emergency room for further evaluation. A CT scan of the abdomen and pelvis revealed extensive metastatic disease to the liver and lungs. She will be admitted for pain control as well as IV antibiotics for apparent UTI and oncology evaluation. Date of Admission Nov 19, 2018 at 19:12 Date Seen by a Provider: Nov 20, 2018 Time Seen by a Provider: 12:35 I consulted on this patient on 11/20/18 21:31 Attending Physician Radha Kohli DO Admitting Physician Radha Kohli DO Consult Allergies and Home Medications Allergies Coded Allergies: oxycodone (Unverified Allergy, Mild, 01/27/17) Home Medications Aspirin 325 Mg Tablet.dr, 325 MG PO DAILY PRN for PAIN-MILD, (Reported) Bupropion HCl 75 Mg Tablet, 75 MG PO DAILY, (Reported) Furosemide 40 Mg Tablet, 20 MG PO DAILY, (Reported) LAST FILLED #45 (90 DAY SUPPLY) 03-06-18 TAKES 1/2 (40MG) TABLET Losartan Potassium 100 Mg Tablet, 100 MG PO DAILY, (Reported) Metoprolol Succinate 100 Mg Tab.er.24h, 100 MG PO DAILY, (Reported) Nitrofurantoin Monohyd/M-Cryst 100 Mg Capsule, 100 MG PO BID, (Reported) 7 DAY SUPPLY FILLED 11-14-18 Potassium Chloride 8 Meq Capsule.er, 8 MEQ PO DAILY, (Reported) Rosuvastatin Calcium 40 Mg Tablet, 40 MG PO DAILY, (Reported) Patient Home Medication List Home Medication List Reviewed: Yes Past Qftfnpj-Isgaka-Gtwvao Hx Patient Social History Marrital Status: Alcohol Use: Denies Use Recreational Drug Use: No Smoking Status: Current Everyday Smoker Type Used: Cigarettes 2nd Hand Smoke Exposure: No Recent Foreign Travel: No Contact w/other who traveled: No Recent Hopitalizations: No Recent Infectious Disease Expo: No Immunizations Up To Date Tetanus Booster (TDap): Unknown Date of Pneumonia Vaccine: Apr 20, 2014 Seasonal Allergies Seasonal Allergies: No Surgeries Yes (aorta graft, bilat knee scope, stent in leg) Bowel Surgery, Gallbladder, Hysterectomy, Orthopedic Respiratory No Currently Using CPAP: No Currently Using BIPAP: No Cardiovascular Yes High Cholesterol, Hypertension Neurological No 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 System Hx 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 Disorders: No Sexually Transmitted Disease: No HIV/AIDS: No Female 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 Disorders: 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 Genitourinary Yes Bladder Infection Gastrointestinal Yes (HX COLON CA) Gastroesophageal Reflux Musculoskeletal Yes (HX PELVIC FX) Arthritis Endocrine History of Endocrine Disorders: No HEENT Loss of Vision: Bilateral Hearing Impairment: Denies Cancer Yes Colon Did You Recieve Any Treatments: Yes Type of Treatment: Chemotherapy Psychosocial History of Psychiatric Problem: No Integumentary History of Skin or Integumenta: No Blood Transfusions History of Blood Disorders: No Adverse Reaction to a Blood Tr: No (N/A) Family Medical History Family Hx: Colon cancer G8 BROTHER Diabetes mellitus 19 FATHER Review of Systems Constitutional: weakness, weight loss EENTM: No see HPI, No no symptoms reported, No ear discharge, No hearing loss, No ear pain, No blurred vision, No double vision, No eye pain, No tearing, No vision loss, No dental problems, No hoarseness, No mouth pain, No mouth swelling, No epistaxis, No nose congestion, No nose pain, No throat pain, No throat swelling, No other Respiratory: No no symptoms reported, No see HPI, No cough, No dyspnea on exertion, No hemoptysis, No orthopnea, No phlegm, No short of breath, No stridor, No wheezing, No other Cardiovascular: No no symptoms reported, No see HPI, No chest pain, No edema, No Hx of Intervention, No palpitations, No syncope, No vascular heart diseas, No other Gastrointestinal: abdominal pain, loss of appetite Genitourinary: decreased output, hematuria (pink urine) Musculoskeletal: back pain, muscle weakness Skin: No no symptoms reported, No see HPI, No change in color, No change in hair/nails, No dryness, No hx of skin cancer, No lesions, No lumps, No pruritus, No rash, No other Psychiatric/Neurological: Weakness Physical Exam Vital Signs Vital Signs - First Documented 11/19/18 11/19/18 11/20/18 16:27 17:49 08:00 Temp 97.6 Pulse 111 Resp 16 B/P (MAP) 138/58 (84) Pulse Ox 99 O2 Delivery Room Air O2 Flow Rate 0.00 FiO2 99 Capillary Refill : Less Than 3 SecondsLess Than 3 Seconds Height, Weight, BMI Height: 5'0.00" Weight: 107lbs. 3.0oz. 48.628233hc; 20.9 BMI Method:Actual General Appearance: Mild Distress HEENT: Normal ENT Inspection Neck: Supple Respiratory: Lungs Clear, Decreased Breath Sounds Cardiovascular: Regular Rate, Rhythm, Systolic Murmur Gastrointestinal: Normal Bowel Sounds, Soft, Tenderness Rectal: Deferred Back: No CVA Tenderness Extremity: Non Tender, No Calf Tenderness, No Pedal Edema Neurologic/Psychiatric: Alert, Oriented x3 Skin: Warm/Dry Comments Laboratory Tests 11/20/18 04:30: White Blood Count 11.7H, Red Blood Count 3.31L, Hemoglobin 9.2L, Hematocrit 28L, Mean Corpuscular Volume 84, Mean Corpuscular Hemoglobin 28, Mean Corpuscular Hemoglobin Concent 33, Red Cell Distribution Width 14.8H, Platelet Count 306, Mean Platelet Volume 10.9H, Neutrophils (%) (Auto) 80H, Lymphocytes (%) (Auto) 9L, Monocytes (%) (Auto) 10, Eosinophils (%) (Auto) 1, Basophils (%) (Auto) 0, Neutrophils # (Auto) 9.4H, Lymphocytes # (Auto) 1.1, Monocytes # (Auto) 1.2H, Eosinophils # (Auto) 0.1, Basophils # (Auto) 0.0, Sodium Level 134L, Potassium Level 3.2L, Chloride Level 102, Carbon Dioxide Level 22, Anion Gap 10, Blood Urea Nitrogen 11, Creatinine 0.76, Estimat Glomerular Filtration Rate > 60, BUN/Creatinine Ratio 14, Glucose Level 80, Calcium Level 8.6, Corrected Calcium 9.6, Total Bilirubin 1.3H, Aspartate Amino Transf (AST/SGOT) 246H, Alanine Aminotransferase (ALT/SGPT) 189H, Alkaline Phosphatase 676H, Total Protein 5.9L, Albumin 2.7L Microbiology 11/19/18 Blood Culture - Preliminary, Resulted No growth 11/19/18 Urine Culture - Final, Complete NO GROWTH Assessment/Plan Assessment and Plan 1. Acute Abdominal Pain--admit for pain control 2. Colon Cancer with extensive mets to liver and lungs--consult oncology, I did discuss hospice with both the patient and family 3. UTI/Leukocytosis--cover with rocephin 4. Hypertension--stable Admission Diagnosis Admission Status: Inpatient Order (span 2 midnights) Reason for Inpatient Admission: Will need IV pain control as well as oncology eval. Clinical Quality Measures DVT/VTE Risk/Contraindication: RFS Level Per Nursing on Admit: 0=No Risk/No VTE PPX RADHA KOHLI DO Nov 20, 2018 21:36
[2018-11-20] MEDS: ALPRAZolam 0.25 MG (XANAX) TAB PO PRN (21:40)
[2018-11-20] MEDS ORDERED: PANTOPRAZOLE 40 MG (PROTONIX) VIAL IV ONE (21:45)
[2018-11-21] VITALS (8 sets, daily range): BP systolic 127–149; BP diastolic 53–77
--- NOTE | 2018-11-21 01:49 | CONSULTATION REPORT ---
DATE OF SERVICE: 11/20/2018 PHYSICIAN REQUESTING CONSULTATION: Radha Kohli DO. The patient is admitted to room number 418. IMPRESSION: 1. A 73-year-old female admitted with increasing abdominal pain and hepatomegaly. She also has significant weight loss over the past two months. 2. Previous history of stage III colon cancer, status post right hemicolectomy in 2015 followed by adjuvant chemotherapy with FOLFOX regimen x 6 months. 3. Extensive history of tobacco use, totaling more than 38-suhe-rawa history. 4. CT scan of the chest, abdomen and pelvis showing numerous enhancing lesions replacing most of the liver with significant hepatomegaly, which is new since 04/2018. The patient also has small bilateral pulmonary nodules, which have increased few millimeters compared to 04/2018. RECOMMENDATIONS: 1. Obtain a CEA level as a new baseline. 2. I would recommend obtaining a CT-guided biopsy of the liver to confirm metastatic disease and review the histology. 3. Once the pathology report is available, we will decide about secondary prognostic features and decide on treatment options. 4. Continue pain control and other symptomatic treatments as you are doing. 5. Answered all of the patient and her family's questions and they were agreeable with this plan. BRIEF HISTORY: The patient is a 73-year-old female, who has not been feeling well since the last two months with significant weight loss. Recently, she was having increasing abdominal pain. She presented to the emergency room with an abdominal mass and underwent a workup including CT scans, which showed a new CT scan finding of extensive liver lesions. She was admitted to the hospital for pain control and further evaluation. Oncology consultation was obtained for recommendations. 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 She has been on surveillance since then with her most recent restaging CT scan in 04/2018, which was unremarkable except for stable pulmonary nodules. Other significant past medical history includes hypertension for more than 30 years and on treatment. Hypercholesterolemia for which she is on treatment. Peripheral arterial disease as well as aortic aneurysm requiring surgical repair in 1990. She gives a history of irritable bowel syndrome for few decades. PAST SURGICAL HISTORY: Other surgeries include a tonsillectomy and adenoidectomy in childhood. Hysterectomy in 1971, abdominal aortic aneurysm repair in 1990, cholecystectomy and right hemicolectomy in 2016. SOCIAL HISTORY: The patient is and lives in [place], [place]. She has three children, two sons and a daughter. Her daughter lives in [place], [place], one son lives in [place], [place] and another son in [place], [place]. She is retired since several years. 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 There is extensive history of tobacco use for at least 45 years, smoking 1 to 6 packs of cigarettes daily. More recently, she was smoking half to 1 pack of cigarettes. No significant alcohol or other recreational drug use. FAMILY HISTORY: Significant for her brother, who was diagnosed with colon cancer at the age of 48 years. No other malignancies in the family that the patient knows of. PHYSICAL EXAMINATION: GENERAL: Today showed an elderly female, thin and weak appearing, awake and answering questions appropriately, although having difficulty remembering some details. VITAL SIGNS: Temperature was 98.6, pulse rate of 103, respiratory rate 22 and blood pressure 148/71 with oxygen saturation of 96% on room air. HEENT: Normocephalic, extraocular muscles are intact, conjunctivae pink and oral mucosa is slightly dry. NECK: Supple, with no JVD. No cervical, supraclavicular or axillary lymphadenopathy palpable. CHEST: Symmetrical. LUNGS: With slightly diminished breath sounds bilaterally without any wheezes or rales. CARDIOVASCULAR: Regular in rate and rhythm. No murmurs or gallops heard. ABDOMEN: Soft with mild tenderness in the right upper quadrant. A firm to hard mass was palpable in the right upper quadrant extending 2 to 3 inches below the right costal margin and clinically consistent with hepatomegaly. No splenomegaly or other masses palpable. EXTREMITIES: Showed no edema. NEUROLOGIC: Grossly intact without focal motor deficits. Overall, motor strength was 4/5 bilaterally. LABORATORY DATA: CBC done today showed WBC 11.7, hemoglobin 9.2, platelet count 306,000 with neutrophil count 9.4, lymphocyte count 1.1 and monocyte count 1.2. Chemistry panel today showed sodium level of 134 and potassium 3.2 with rest of the electrolytes normal. BUN was 11 and creatinine 0.76 with GFR more than 60 mL per minute. Liver function studies were all elevated with a total bilirubin of 1.3, AST 246, ALT 189, alkaline phosphatase 676 and albumin below normal at 2.7. CEA level drawn today is pending. Previous CEA level from 08/24/2018 was within normal limits at 2.6. CT scan of the chest, abdomen and pelvis done last evening at the emergency room showed multiple pulmonary nodules scattered diffusely with the overall appearance showing slight increase. CT scan of the abdomen and pelvis showed the liver, almost completely replaced by hypodense metastatic nodules with marked hepatomegaly. The liver has nearly doubled in size compared to previous scans from 04/2018. No blastic or lytic bony lesions noted. No pelvic mass noted. Thank you for allowing me to participate in this patient's care. I will follow the patient with you and make appropriate recommendations. Job ID: [id number] DocumentID: [id number] Dictated Date: 11/20/2018 18:27:09 Corporate Strategy Analyst Date: 11/21/2018 01:48:55 Dictated By: TERESITA SEN MD MTDD
[2018-11-21 05:47] LABS: BASOPHILS % (AUTO) 0 % (0-10); EOSINOPHILS # (AUTO) 0.1 10^3/uL (0.0-0.3); EOSINOPHILS % (AUTO) 1 % (0-10); HEMATOCRIT 31 % (35-52); LYMPHOCYTES # (AUTO) 1.3 X 10^3 (1.0-4.0); LYMPHOCYTES % (AUTO) 11 % (12-44); MEAN CORPUSCULAR HEMOGLOBIN 28 PG (25-34); MEAN CORPUSCULAR HGB CONC 32 G/DL (32-36); MEAN CORPUSCULAR VOLUME 86 FL (80-99); MEAN PLATELET VOLUME 10.7 FL (7.4-10.4); MONOCYTES # (AUTO) 1.2 X 10^3 (0.0-1.0); MONOCYTES % (AUTO) 10 % (0-12); NEUTROPHILS # (AUTO) 9.4 X 10^3 (1.8-7.8); NEUTROPHILS % (AUTO) 78 % (42-75); PLATELET COUNT 336 10^3/uL (130-400); RED CELL DISTRIBUTION WIDTH 15.3 % (10.0-14.5); WHITE BLOOD COUNT 12.1 10^3/uL (4.3-11.0)
[2018-11-21 05:52] LABS: INR 1.4 (0.8-1.4); PROTHROMBIN TIME PATIENT 17.5 SEC (12.2-14.7)
[2018-11-21] MEDS: morphine INJ 4 MG/ML 1 ML (VIAL/SYRINGE) IV PRN ×2 (07:02→11:48)
[2018-11-21] MEDS: PANTOPRAZOLE 40 MG (PROTONIX) VIAL IV SCH (08:26)
[2018-11-21] MEDS: SENNA W/DOCUSATE (SENOKOT S) TABLET PO SCH ×2 (08:28→20:59)
[2018-11-21] MEDS ORDERED: MIDAZOLAM 2 MG/2 ML (VERSED) VIAL ONE (12:51)
[2018-11-21] MEDS ORDERED: fentaNYL INJECTION 100 MCG/2 ML AMP ONE (12:51)
[2018-11-21] MEDS ORDERED: LIDOCAINE 1% INJ 20 ML 20 ML VIAL ONE (12:51)
--- NOTE | 2018-11-21 13:10 | NUR ---
PT TAKEN OFF FLOOR FOR PROCEDURE
[2018-11-21] MEDS ORDERED: LORazepam INJ 2 MG/ML (ATIVAN) VIAL IVP NR (13:15)
--- NOTE | 2018-11-21 13:20 | NUR ---
PALLIATIVE CARE RN spoke with patient's daughter regarding discharge plans. They intend for her to go home where she lives with her . However they will need to have some assistance in her care and they have this arranged with family. 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 I have given them brochures on the hospice agencies in the area and my business card if they have additional questions. Anticipate discharge to be Tuesday according to the daughter.
[2018-11-21] MEDS ORDERED: fentaNYL INJECTION 100 MCG/2 ML AMP IVP ONE (13:30)
[2018-11-21] MEDS ORDERED: MIDAZOLAM 2 MG/2 ML (VERSED) VIAL IVP ONE (13:30)
--- NOTE | 2018-11-21 13:50 | NUR ---
PT BACK TO ROOM AT THIS TIME. PT LAYING FLAT. WILL REMAIN FLAT FOR NEXT 45 MIN
--- NOTE | 2018-11-21 14:01 | Pre-Op Note & Conscious Sedat ---
Pre-Operative Progress Note H&P Reviewed The H&P was reviewed, patient examined and no changes noted. Date H&P Reviewed: Nov 21, 2018 Time H&P Reviewed: 12:00 Pre-Op Diagnosis: Liver masses Conscious Sedation Pre-Proced Time 12:00 ASA Score 2 For ASA 3 and 4: Consider anesthesia and medical clearance. Also, for patients with a history of failed moderate sedation consider anesthesia. Airway Lungs Heart ASA score ASA 1: a normal healthy patient ASA 2: a patient with a mild systemic disease (mid diabetes, controlled hypertension, obesity ASA 3: a patient with a severe systemic disease that limits activity (angina, COPD, prior Myocardial infarction) ASA 4: a patient with an incapacitating disease that is a constant threat to life (CHF, renal failure) ASA 5: a moribund patient not expected to survive 24 hrs. (ruptured aneurysm) ASA 6: a declared brain- patient whose organs are being harvested. For emergent operations, add the letter E after the classification Mallampati Classification Grade 2 Sedation Plan Analgesia, Amnesia, Plan communicated to team members, Discussed options with patient/fam, Discussed risks with patient/fam The patient is an appropriate candidate to undergo the planned procedure, sedation, and anesthesia. The patient immediately re-assessed prior to indication. KOJO VINCENT MD Nov 21, 2018 14:01
[2018-11-21] MEDS ORDERED: LIDOCAINE 1% INJ 20 ML 20 ML VIAL INJ ONE (14:15)
--- NOTE | 2018-11-21 14:36 | Diagnostic Imaging Report ---
INDICATION: Liver masses. The patient presents for CT-guided biopsy. TECHNIQUE: The patient was brought to the CT suite and placed on the table in the supine position. Axial imaging through the abdomen was performed to evaluate for an appropriate entry site. The procedure was performed utilizing conscious sedation with Radiology nursing and constant patient monitoring. The patient was then administered a total of 2 mg of Versed intravenously and 25 mcg of fentanyl intravenously. The total procedure time was approximately 10 minutes. The right abdomen was prepped and draped in the usual sterile fashion. A small amount of 1% lidocaine was utilized for local anesthesia. An 18-gauge coaxial needle was advanced into the right lobe of the liver. Three core biopsies were then obtained. Next, the needle was repositioned slightly more inferior in the right lobe of the liver and three additional core biopsies were obtained. The needle was withdrawn during injection of a blood patch. Hemostasis was obtained using manual compression. The patient tolerated the procedure well and left the Department in stable condition. IMPRESSION: CT-guided core biopsy of right lobe liver lesions utilizing conscious sedation. The pathology results are currently pending. Dictated by: Dictated on workstation # [id number]
[2018-11-21] MEDS: NS IV 1000 ML 1,000 ML IV SCH (14:54)
--- NOTE | 2018-11-21 16:43 | Progress Note (SOAP) ---
Subjective Date Seen by a Provider: Nov 21, 2018 Time Seen by a Provider: 12:45 Subjective/Events-last exam Fwup abdominal pain with history of colon cancer with liver and pulmonary mets, UTI, fever, fatigue. Slept better last night with xanax and morphine at low dose is controlling pain. Is confused at times per daughter. Focused Exam Lactate Level 11/19/18 17:03: Lactic Acid Level 2.56*H 11/19/18 19:00: Lactic Acid Level 1.30 Objective Exam Vital Signs Date Time Temp Pulse Resp B/P (MAP) Pulse Ox O2 Delivery O2 Flow Rate FiO2 11/21/18 15:57 99.0 105 22 127/71 (89) 100 Room Air 11/21/18 13:40 98 Nasal Cannula 3.00 11/21/18 13:40 103 18 131/58 (82) 98 Room Air 11/21/18 13:35 98 Nasal Cannula 3.00 11/21/18 13:35 102 18 133/53 (79) 98 Room Air 11/21/18 13:30 101 18 131/57 (81) 98 Room Air 11/21/18 13:30 98 Nasal Cannula 3.00 11/21/18 13:25 98 Nasal Cannula 3.00 11/21/18 13:25 105 18 146/64 (91) 98 Room Air 11/21/18 13:20 98 Nasal Cannula 3.00 11/21/18 13:20 104 18 149/62 (91) 98 Room Air 11/21/18 08:36 97 Room Air 0.00 11/21/18 08:00 98.7 95 18 147/77 (100) 97 Room Air 11/21/18 00:10 96.7 81 17 148/66 (93) 97 Room Air 11/20/18 20:00 97 Room Air 0.00 99 11/20/18 19:50 97.1 97 18 126/58 (80) 97 Room Air 11/20/18 18:00 99.4 11/20/18 17:38 101.1 11/20/18 17:08 101.8 I & O 11/21/18 07:00 Intake Total 2625 ml Output Total 3351 ml Balance -726 ml Capillary Refill : Less Than 3 SecondsLess Than 3 Seconds General Appearance: Mild Distress Neck: Supple Respiratory: Lungs Clear, Decreased Breath Sounds Cardiovascular: Regular Rate, Rhythm Gastrointestinal: soft, distended, tenderness (epigastric and LUQ) Extremity: Non Tender, No Calf Tenderness, No Pedal Edema Neurologic/Psychiatric: Alert, Oriented x3 Skin: Warm/Dry Results Lab Laboratory Tests 11/21/18 05:10: White Blood Count 12.1H, Red Blood Count 3.62L, Hemoglobin 10.0L, Hematocrit 31L , Mean Corpuscular Volume 86, Mean Corpuscular Hemoglobin 28, Mean Corpuscular Hemoglobin Concent 32, Red Cell Distribution Width 15.3H, Platelet Count 336, Mean Platelet Volume 10.7H, Neutrophils (%) (Auto) 78H, Lymphocytes (%) (Auto) 11L, Monocytes (%) (Auto) 10, Eosinophils (%) (Auto) 1, Basophils (%) (Auto) 0, Neutrophils # (Auto) 9.4H, Lymphocytes # (Auto) 1.3, Monocytes # (Auto) 1.2H, Eosinophils # (Auto) 0.1, Basophils # (Auto) 0.0, Prothrombin Time 17.5H, INR Comment 1.4, Activated Partial Thromboplast Time 38H Microbiology 11/19/18 Blood Culture - Preliminary, Resulted No growth 11/19/18 Urine Culture - Final, Complete NO GROWTH Assessment/Plan Assessment/Plan Assess & Plan/Chief Complaint 1. Acute Abdominal Pain with History of Stage III Colon Cancer with Liver and Pulmonary Mets--liver biopsy today to ascertain that this is metastatic colon cancer and not from another primary as patient has continued to smoke 2. UTI with Fever--on rocephin but will repeat blood cultures if spikes another temperature 3. Hypertension/Tachycardia--start low dose metoprolol Clinical Quality Measures Admission Status Admission Dx 1. Acute Abdominal Pain--admit for pain control 2. Colon Cancer with extensive mets to liver and lungs--consult oncology, I did discuss hospice with both the patient and family 3. UTI/Leukocytosis--cover with rocephin 4. Hypertension--stable DVT/VTE Risk/Contraindication: RFS Level Per Nursing on Admit: 0=No Risk/No VTE PPX NEMESIO CAMACHO DO Nov 21, 2018 16:43
--- NOTE | 2018-11-21 17:01 | Progress Note-Standard ---
Standard Progress Note Progress Notes/Assess & Plan Date Seen by a Provider: Nov 21, 2018 Time Seen by a Provider: 16:58 Progress/Assessment & Plan 73-year-old female with history of stage III colon cancer admitted to the hospital with increasing weakness, weight loss and abdominal pain. Admission CT scan showed hepatomegaly with numerous enhancing lesions consistent with metastasis while the last CT scan of the abdomen from April 2018 was unremarkable. Abdominal pain is controlled with morphine IV and benzodiazepines as needed. Patient completed CT-guided biopsy of liver today. She complained of mild discomfort in the right upper quadrant at the site of biopsy. Exam unchanged from yesterday. We will await pathology report before making definitive recommendations. Will follow patient with you. Focused Exam Lactate Level 11/19/18 17:03: Lactic Acid Level 2.56*H 11/19/18 19:00: Lactic Acid Level 1.30 TERESITA SEN Nov 21, 2018 17:01
--- NOTE | 2018-11-21 18:03 | NUR ---
TELE MONITOR SET UP PER DR ORDERS. PT AND FAMILY NOTIFIED.
[2018-11-21] MEDS: ALPRAZolam 0.25 MG (XANAX) TAB PO SCH (20:59)
[2018-11-21] MEDS: cefTRIAXone 1,000 MG/SWFI 10 ML IV PUSH IV SCH ×2 (21:01)
[2018-11-22 00:21] VITALS: BP 140/63
[2018-11-22 06:36] LABS: BASOPHILS % (AUTO) 0 % (0-10); EOSINOPHILS # (AUTO) 0.1 10^3/uL (0.0-0.3); EOSINOPHILS % (AUTO) 1 % (0-10); HEMATOCRIT 27 % (35-52); HEMOGLOBIN 8.7 G/DL (11.5-16.0); LYMPHOCYTES # (AUTO) 1.2 X 10^3 (1.0-4.0); LYMPHOCYTES % (AUTO) 10 % (12-44); MEAN CORPUSCULAR HEMOGLOBIN 27 PG (25-34); MEAN CORPUSCULAR HGB CONC 32 G/DL (32-36); MEAN CORPUSCULAR VOLUME 86 FL (80-99); MEAN PLATELET VOLUME 10.7 FL (7.4-10.4); MONOCYTES # (AUTO) 1.2 X 10^3 (0.0-1.0); MONOCYTES % (AUTO) 10 % (0-12); NEUTROPHILS # (AUTO) 9.6 X 10^3 (1.8-7.8); NEUTROPHILS % (AUTO) 79 % (42-75); PLATELET COUNT 323 10^3/uL (130-400); WHITE BLOOD COUNT 12.2 10^3/uL (4.3-11.0)
[2018-11-22 06:53] LABS: ALANINE AMINOTRANSFERASE 182 U/L (0-55); ALBUMIN 2.7 GM/DL (3.2-4.5); ALKALINE PHOSPHATASE 767 U/L (40-136); BILIRUBIN,TOTAL 1.4 MG/DL (0.1-1.0); BUN/CREATININE RATIO 14; CALCIUM 8.5 MG/DL (8.5-10.1); CARBON DIOXIDE 22 MMOL/L (21-32); CHLORIDE 102 MMOL/L (98-107); CREATININE SERUM 0.76 MG/DL (0.60-1.30); GFR ESTIMATED > 60; GLUCOSE 87 MG/DL (70-105); POTASSIUM 3.3 MMOL/L (3.6-5.0); SODIUM 134 MMOL/L (135-145); TOTAL PROTEIN 6.1 GM/DL (6.4-8.2)
[2018-11-22 08:11] VITALS: BP 144/67
[2018-11-22] MEDS: SENNA W/DOCUSATE (SENOKOT S) TABLET PO SCH ×2 (08:19→20:55)
[2018-11-22] MEDS: PANTOPRAZOLE 40 MG (PROTONIX) VIAL IV SCH (08:19)
--- NOTE | 2018-11-22 11:51 | NUR ---
Met with pt who was known from our [facility],Pt uncertain about continued care plans but states she plans to be discharged home with her as primary caregiver. Pt has a brother and sister who live locally and a granddaughter who she hopes will be available to assist.Pt thinks a Front wheel walker would be helpful due to her weakness, dizziness and unsteady balance. will continue to follow to assist with continued care plans.
--- NOTE | 2018-11-22 13:28 | Progress Note-Standard ---
Standard Progress Note Progress Notes/Assess & Plan Date Seen by a Provider: Nov 22, 2018 Time Seen by a Provider: 13:23 Progress/Assessment & Plan 73-year-old female with history of stage III colon cancer admitted to the hospital with increasing weakness, weight loss and abdominal pain. Admission CT scan showed hepatomegaly with numerous enhancing lesions consistent with metastasis while the last CT scan of the abdomen from April 2018 was unremarkable. Abdominal pain due to massive hepatomegaly. Patient is requiring morphine fairly regularly. We will increase dose to 2 mg every 2 hours as needed. If this is controlling the pain, we will switch this over to oxycodone 5 mg by mouth as needed for pain control. I reviewed the pathology with Dr. Capone. This is consistent with metastatic adenocarcinoma probably of colon origin. CEA markedly elevated at >350. I will request KRAS, NRAS, BRAF, MSI and [id number] testing on the specimen. These results will take 7-10 days. Once and is controlled, she can be discharged home and I will follow her as an outpatient. Focused Exam Lactate Level 11/19/18 17:03: Lactic Acid Level 2.56*H 11/19/18 19:00: Lactic Acid Level 1.30 TERESITA SEN Nov 22, 2018 13:28
[2018-11-22] MEDS: NS IV 1000 ML 1,000 ML IV SCH (14:35)
[2018-11-22] MEDS: ALPRAZolam 0.25 MG (XANAX) TAB PO PRN (14:35)
--- NOTE | 2018-11-22 14:40 | Physical Therapy Evaluation ---
PT Evaluation-General Medical Diagnosis Admission Date Nov 19, 2018 at 19:12 Medical Diagnosis: lung CA Onset Date: Nov 19, 2018 Therapy Diagnosis Therapy Diagnosis: abnormal gait Height/Weight Height (Feet): 5 Height (Inches): 0.00 Weight (Pounds): 107 Weight (Ounces): 3.0 Precautions Precautions/Isolations: Fall Prevention, Standard Precautions Referral Physician: alejandro Reason for Referral: Evaluation/Treatment Medical History Pertinent Medical History: HTN Additional Medical History high cholesterol Current History Pt admitted with complaints of abdominal pain. Pt has a history of colon CA and now with metastatic disease to the liver and lungs. Reviewed History: Yes Social History Home: Single Level Current Living Status: Spouse Entry Into Home: Stairs With Railing Prior/Core FIM Prior Level of Function Therapy Code Descriptions/Definitions Functional [place] Measure: 0=Not Assessed/NA 4=Minimal Assistance 1=Total Assistance 5=Supervision or Setup 2=Maximal Assistance 6=Modified [place] 3=Moderate Assistance 7=Complete [place] Therapy Quality Codes: 6 Independent with activity with or without an assistive device 5 Patient requires set up or clean up by helper. Patient completes activity by themselves 4 Supervision or touching assist (CGA). [place] provide cues , steadying assist 3 The helper provides less than half the effort to complete the activity 2 The helper provides more than half the effort to complete the activity 1 Dependent. The helper does all the effort to complete an activity 7 Patient refused to complete or attempt activity 9 The patient did not perform the activity before the current illness or injury 88 Not attempted due to Medical conditions or safety concerns Functional Abilities and Goals: Independent: Patient completed the activities by him/herself, with or without an assistive device, with no assistance from a helper. Needed Some Help: Patient needed partial assistance from another person to complete activities. Dependent: A helper completed the activities for the patient. Unknown: Not Applicable: Bed Mobility: 7 Transfers (B,C,W/C) (FIM): 7 Gait: 7 Stairs: 7 Indoor Mobility (Ambulation): Independent Stairs: Independent independent and active community ambulator PT Evaluation-Current Subjective Pt acknowledges that she knows this therapist. AGrees to PT. Reports she would like to sit up in the chair. Pain Numeric Pain Scale: 5-Moderate Pain Location: Right Location Body Site: Abdomen (anteroloateral) Pain Description: Ache Objective Patient Orientation: Person, Place, Time, Situation Problem Solving: Good ROM/Strength ROM Lower Extremities WNL Strength Lower Extremities WFL Integumentary/Posture Integumentary intact Bowel Incontinence: No Bladder Incontinence: No Posture normal and symmetrical Neuromuscular (Tone, Coordination, Reflexes) intact Sensory Vision: Wears Glasses Hearing: Functional Hand Dominance: Right Sensation Right Lower Extremit: Intact Sensation Left Lower Extremity: Intact Transfers Therapy Code Descriptions/Definitions Functional [place] Measure: 0=Not Assessed/NA 4=Minimal Assistance 1=Total Assistance 5=Supervision or Setup 2=Maximal Assistance 6=Modified [place] 3=Moderate Assistance 7=Complete [place] Transfers (B, C, W/C) (FIM): 4 Supine to/from Sit: 4 (min assist to sit up) Sit to/from Stand: 4 (CGA for safety) Pt used walker to take 4-5 steps to the chair; up in chair post treatment with needs met and warm blankets in plac.e Gait Mode of Locomotion: Walk Anticipated Mode of Locomotion: Walk Balance Sitting Static: Good Sitting Dynamic: Good Standing Static: Fair Standing Dynamic: Fair Assessment/Needs pt with new dx of metastatic cancer. She presents with decreased functional strength and mobilty. She will benefit from skilled PT to address mobility and ensure safety and ability to mobilize at home with her spouse upon discharge. Rehab Potential: Good PT Usp Goals Artificial Flower Maker Goals PT Usp Goals Time Frame: Nov 29, 2018 Transfers (B,C,W/C) (FIM): 7 Gait (FIM): 6 Gait distance (FIM): 3=150 ft Gait Assistive Device: FWW PT Plan Problem List Problem List: Activity Tolerance, Functional Strength, Safety, Balance, Gait, Transfer, Bed Mobility Treatment/Plan Treatment Plan: Continue Plan of Care Treatment Plan: Bed Mobility, Education, Functional Activity Raghavendra, Functional Strength, Gait, Safety, Therapeutic Exercise, Transfers Treatment Duration: Nov 29, 2018 Frequency: 6 times per week Estimated Hrs Per Day: .25 hour per day Patient and/or Family Agrees t: Yes Safety Risks/Education Patient Education: Safety Issues Teaching Recipient: Patient Teaching Methods: Discussion Response to Teaching: Reinforcement Needed Time/GCodes Time In: 1400 Time Out: 1417 Total Billed Treatment Time: 17 Total Billed Treatment visit EVM 17 BOB NUÑEZ PT Nov 22, 2018 14:40
[2018-11-22 16:15] VITALS: BP 138/64
[2018-11-22 17:35] VITALS: BP 139/65
[2018-11-22] MEDS: ALPRAZolam 0.25 MG (XANAX) TAB PO SCH (20:55)
[2018-11-22] MEDS: cefTRIAXone 1,000 MG/SWFI 10 ML IV PUSH IV SCH ×2 (20:55)
[2018-11-23 00:14] VITALS: BP 130/63
[2018-11-23] MEDS: NS IV 1000 ML 1,000 ML IV SCH (05:39)
[2018-11-23 08:16] VITALS: BP 131/60
[2018-11-23] MEDS: PANTOPRAZOLE 40 MG (PROTONIX) VIAL IV SCH (09:07)
[2018-11-23] MEDS: SENNA W/DOCUSATE (SENOKOT S) TABLET PO SCH ×2 (09:07→21:00)
--- NOTE | 2018-11-23 09:07 | Physical Therapy Daily Note ---
PT Daily Note-Current Subjective Agrees to PT. Reports she slept "fair" last night. Mental Status Patient Orientation: Person, Place, Time, Situation Transfers Therapy Code Descriptions/Definitions Functional [place] Measure: 0=Not Assessed/NA 4=Minimal Assistance 1=Total Assistance 5=Supervision or Setup 2=Maximal Assistance 6=Modified [place] 3=Moderate Assistance 7=Complete [place] Therapy Quality Codes: 6 Independent with activity with or without an assistive device 5 Patient requires set up or clean up by helper. Patient completes activity by themselves 4 Supervision or touching assist (CGA). [place] provide cues , steadying assist 3 The helper provides less than half the effort to complete the activity 2 The helper provides more than half the effort to complete the activity 1 Dependent. The helper does all the effort to complete an activity 7 Patient refused to complete or attempt activity 9 The patient did not perform the activity before the current illness or injury 88 Not attempted due to Medical conditions or safety concerns Transfers (B, C, W/C) (FIM): 4 Supine to/from Sit: 4 (min assist to sit up;) Sit to/from Stand: 4 (CGA for safety and sequencing. ) Gait Training Gait (FIM): 2 Distance (FIM): 5=507-23 ft Distance: 100 ft Gait Level of Assist: 4 (CGA for safety; slow and steady gait) Gait Assistive Device: FWW Treatments pt ambulated and finished sitting up in her chair for breakfast. All needs met post treatment Assessment Current Status: Good Progress Increased gait distance today. Tires easily. Safe and steady with gait. Pt is getting up to walk to the bathroom throughout the day. PT Process Planner Goals Retirement Goals PT Retirement Goals Time Frame: Nov 29, 2018 Transfers (B,C,W/C) (FIM): 7 Gait (FIM): 6 Gait distance (FIM): 3=150 ft Gait Assistive Device: FWW PT Plan Problem List Problem List: Activity Tolerance, Functional Strength, Safety, Balance, Gait, Transfer, Bed Mobility Treatment/Plan Treatment Plan: Continue Plan of Care Treatment Plan: Bed Mobility, Education, Functional Activity Raghavendra, Functional Strength, Gait, Safety, Therapeutic Exercise, Transfers Treatment Duration: Nov 29, 2018 Frequency: 6 times per week Estimated Hrs Per Day: .25 hour per day Patient and/or Family Agrees t: Yes Safety Risks/Education Patient Education: Safety Issues Teaching Recipient: Patient Teaching Methods: Discussion Response to Teaching: Reinforcement Needed Discharge Recommendations Therapy D/C Recommendations: Physical Therapy Home Care Time/GCodes Time In: 840 Time Out: 900 Total Billed Treatment Time: 20 Total Billed Treatment visit GT 20 BOB NUÑEZ PT Nov 23, 2018 09:07
--- NOTE | 2018-11-23 11:41 | NUR ---
provided prayer and Communion.
[2018-11-23] MEDS ORDERED: MILK OF MAGNESIA 400 MG/5 ML 30 ML UDC PO NR (13:00)
--- NOTE | 2018-11-23 13:29 | NUR ---
PALLIATIVE CARE RN in to patient's room to see how she is doing. She looks weak and uncomfortable and reports the same. Patient reports that she has not had a bowel movement in a few days, Milk of Mag was ordered x1 not yet administered. Reports that she is likely going to discharge this weekend. Plan is for home with family assist and MoWs for both patient and .
[2018-11-23 15:46] VITALS: BP 142/64
--- NOTE | 2018-11-23 16:44 | NUR ---
CONFUSED AND MORE LETHARGIC. DR. THAYEREW HERE AND ASSESSED AND REQUESTED I CALL DR. CAMACHO FOR MED CHANGE. DR. CAMACHO'S OFFICE NOTIFIED AND OXYIR DOSE DECREASED. TELESITTER AND BED ALARM AND 4 BEDRAILS CONTINUE.
--- NOTE | 2018-11-23 19:48 | Progress Note (SOAP) ---
Subjective Date Seen by a Provider: Nov 23, 2018 Time Seen by a Provider: 12:35 Subjective/Events-last exam Fwup abdominal pain with history of colon cancer with liver and pulmonary mets, UTI, fever, fatigue. Oxycodone helping pain but not eating well and groggy. Objective Exam Vital Signs Date Time Temp Pulse Resp B/P (MAP) Pulse Ox O2 Delivery O2 Flow Rate FiO2 11/23/18 15:46 99.6 92 20 142/64 (90) 96 Room Air 11/23/18 08:16 98.0 85 26 131/60 (83) 94 Room Air 0.00 11/23/18 08:00 Room Air 0.00 11/23/18 00:14 99.4 95 20 130/63 (85) 93 Room Air 11/22/18 20:41 Room Air I & O 11/23/18 07:00 Intake Total 2250 ml Balance 2250 ml Capillary Refill : Less Than 3 SecondsLess Than 3 Seconds General Appearance: No Apparent Distress Neck: Supple Respiratory: Lungs Clear Cardiovascular: Regular Rate, Rhythm Gastrointestinal: normal bowel sounds, non tender (much less tender then previous days), soft Extremity: Non Tender, No Calf Tenderness, No Pedal Edema Neurologic/Psychiatric: Alert Skin: Warm/Dry Results Lab Microbiology 11/19/18 Blood Culture - Preliminary, Resulted No growth 11/19/18 Urine Culture - Final, Complete NO GROWTH Assessment/Plan Assessment/Plan Assess & Plan/Chief Complaint 1. 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 UTI with Fever--on rocephin but will repeat blood cultures if spikes another temperature 3. Hypertension/Tachycardia--start low dose metoprolol Clinical Quality Measures Admission Status Admission Dx 1. Acute Abdominal Pain--admit for pain control 2. Colon Cancer with extensive mets to liver and lungs--consult oncology, I did discuss hospice with both the patient and family 3. UTI/Leukocytosis--cover with rocephin 4. Hypertension--stable DVT/VTE Risk/Contraindication: RFS Level Per Nursing on Admit: 0=No Risk/No VTE PPX NEMESIO CAMACHO DO Nov 23, 2018 19:48
[2018-11-23] MEDS ORDERED: PIPERACILLIN/TAZO 4.5 GM/NS 100 ML IV NR ×2 (20:00)
[2018-11-23] MEDS: ALPRAZolam 0.25 MG (XANAX) TAB PO SCH (21:00)
[2018-11-23 23:43] VITALS: BP 123/58
[2018-11-24] MEDS: PIPERACILLIN/TAZOBACTAM (BULK) 4.5 GM in NS (IVPB) 100 ML IV SCH ×2 (01:42→10:04)
[2018-11-24 06:00] LABS: BASOPHILS % (AUTO) 0 % (0-10); EOSINOPHILS # (AUTO) 0.2 10^3/uL (0.0-0.3); EOSINOPHILS % (AUTO) 1 % (0-10); HEMATOCRIT 25 % (35-52); HEMOGLOBIN 8.2 G/DL (11.5-16.0); LYMPHOCYTES # (AUTO) 1.2 X 10^3 (1.0-4.0); LYMPHOCYTES % (AUTO) 11 % (12-44); MEAN CORPUSCULAR HEMOGLOBIN 28 PG (25-34); MEAN CORPUSCULAR HGB CONC 32 G/DL (32-36); MEAN CORPUSCULAR VOLUME 86 FL (80-99); MEAN PLATELET VOLUME 10.7 FL (7.4-10.4); MONOCYTES # (AUTO) 1.2 X 10^3 (0.0-1.0); MONOCYTES % (AUTO) 10 % (0-12); NEUTROPHILS % (AUTO) 78 % (42-75); PLATELET COUNT 322 10^3/uL (130-400); RED CELL DISTRIBUTION WIDTH 15.2 % (10.0-14.5); WHITE BLOOD COUNT 11.6 10^3/uL (4.3-11.0)
[2018-11-24 06:17] LABS: ALANINE AMINOTRANSFERASE 142 U/L (0-55); ALBUMIN 2.4 GM/DL (3.2-4.5); ALKALINE PHOSPHATASE 611 U/L (40-136); BILIRUBIN,TOTAL 1.6 MG/DL (0.1-1.0); BUN/CREATININE RATIO 19; CALCIUM 8.2 MG/DL (8.5-10.1); CARBON DIOXIDE 22 MMOL/L (21-32); CHLORIDE 100 MMOL/L (98-107); CREATININE SERUM 0.68 MG/DL (0.60-1.30); GFR ESTIMATED > 60; GLUCOSE 100 MG/DL (70-105); POTASSIUM 3.3 MMOL/L (3.6-5.0); SODIUM 133 MMOL/L (135-145); TOTAL PROTEIN 5.7 GM/DL (6.4-8.2)
[2018-11-24 08:00] VITALS: BP 114/57
--- NOTE | 2018-11-24 09:30 | Physical Therapy Progress Note ---
Therapy Progress Note Patient declined PT this a.m. stating she had a bad night. PT will attempt later today. 1 ref ([phone]) BRANDON RIOS PT Nov 24, 2018 09:30
[2018-11-24] MEDS: NS IV 1000 ML 1,000 ML IV SCH (10:05)
[2018-11-24] MEDS: PANTOPRAZOLE 40 MG (PROTONIX) VIAL IV SCH (10:05)
[2018-11-24] MEDS: SENNA W/DOCUSATE (SENOKOT S) TABLET PO SCH (10:05)
--- NOTE | 2018-11-24 10:30 | Physical Therapy Progress Note ---
Therapy Progress Note Patient declined PT to eat breakfast. PT will attempt in p.m. 1 ref ([phone]) BRANDON RIOS PT Nov 24, 2018 10:30
--- NOTE | 2018-11-24 11:01 | NUR ---
Palliative Care RN in to see patient. She had good results from the MOM given with recording of 3 movements. Patient reports improvement in pain p bowel movements. Patient looks like she is not feeling super great but with metastatic adenocarcinoma she likely will not. Dr. Kolhi noted discussion of hospice so I followed up on this with the daughter. She reports that she would like to talk with [facility]. I have called and spoken with them for an informational visit. Addendum: 11/24/18 at 1402 by DERREK DUQUE RN Hold on informational visit, will transition to B for IV ABx
--- NOTE | 2018-11-24 11:12 | Diagnostic Imaging Report ---
PROCEDURE: CT head without contrast. TECHNIQUE: Multiple contiguous axial images were obtained through the brain without the use of intravenous contrast. Auto Exposure Controls were utilized during the CT exam to meet ALARA standards for radiation dose reduction. INDICATION: Colon carcinoma with metastases to the lung and liver. The patient has weakness and confusion. COMPARISON: No prior studies are available for comparison. FINDINGS: The ventricles and sulci are within normal limits. There is mild periventricular hypodensity noted consistent with chronic microvascular ischemia. No sulcal effacement or midline shift is detected. No acute intra-axial or extra-axial hemorrhage is detected. Cisterns are patent. Visualized paranasal sinuses are clear. IMPRESSION: No acute intracranial process is detected. Dictated by: Dictated on workstation # [id number]
[2018-11-24] MEDS: ACETAMINOPHEN 500 MG TAB (TYLENOL) PO PRN (11:24)
--- NOTE | 2018-11-24 11:30 | NUR ---
Swing Bed Note: Qualifies for swing bed for continued need for IV abx (UTI) et continued need for short term therapies to return home at her prior level of function.
--- NOTE | 2018-11-24 13:01 | Discharge Summary ---
Diagnosis/Chief Complaint Date of Admission Nov 19, 2018 at 19:12 Date of Discharge Nov 24, 2018 at 11:23 Discharge Date: Nov 24, 2018 Discharge Diagnosis 1. Acute Abdominal Pain with History of Stage III Colon Cancer with Liver and Pulmonary Mets--plan is hospice consult and await oncology recommendations 2. UTI with Fever--continue zosyn on SWING bed 3. Hypertension/Tachycardia--continue metoprolol 4. Confusion--likely from medications and hospital stay 5. Acute Anemia--monitor H/H Reason Hospital Visit This is a 73 year old female with a history of colon cancer who presented to the urgent care with worsening abdominal pain. She had been seen the previous week both at the ER and my office and had been treated for a UTI. The provider at the urgent care felt an abdominal mass and sent her to the emergency room for further evaluation. A CT scan of the abdomen and pelvis revealed extensive metastatic disease to the liver and lungs. She will be admitted for pain control as well as IV antibiotics for apparent UTI and oncology evaluation. Discharge Summary Hospital Course Hospital Course This is a 73 year old female with a history of colon cancer who presented to the urgent care with worsening abdominal pain. She had been seen the previous week both at the ER and my office and had been treated for a UTI. The provider at the urgent care felt an abdominal mass and sent her to the emergency room for further evaluation. A CT scan of the abdomen and pelvis revealed extensive m etastatic disease to the liver and lungs. She will be admitted for pain control as well as IV antibiotics for apparent UTI and oncology evaluation. She was admitted to the medical floor and had IV morphine as needed for pain. She underwent a liver biopsy to assess whether this was mets from her known history of colon cancer of from a new primary cancer. She continued to spike fevers and have and elevated WBC count so her antibiotics were changed from rocephin to zosyn. Following this change, her WBC count did come down and it was felt she should continue with the IV zosyn through the weekend so a SWING bed evaluation was obtained and she did qualify. I started her on oral oxycodone routinely for pain control following her liver biopsy but she was groggy with this so her dose has been decreased and she is more alert but is having a little more pain. She has also been confused so a CT of the brain was obtained which shows small vessel disease but no mets. PT was also started for her weakness and will be continued on SWING bed. OT will also be ordered for SWING bed. Hospice was discussed with the family and the patient and a consult will be obtained. Her prognosis is guarded and fci prognosis is poor and the family does understand this. Labs Laboratory Tests 11/22/18 05:43: White Blood Count 12.2H, Red Blood Count 3.19L, Hemoglobin 8.7L, Hematocrit 27L, Red Cell Distribution Width 15.0H, Mean Platelet Volume 10.7H, Neutrophils (%) (Auto) 79H, Lymphocytes (%) (Auto) 10L, Neutrophils # (Auto) 9.6H, Monocytes # (Auto) 1.2H, Sodium Level 134L, Potassium Level 3.3L, Total Bilirubin 1.4H, Aspartate Amino Transf (AST/SGOT) 227H, Alanine Aminotransferase (ALT/SGPT) 182H , Alkaline Phosphatase 767H, Total Protein 6.1L, Albumin 2.7L 11/23/18 20:02: Ammonia 34H 11/24/18 05:15: White Blood Count 11.6H, Red Blood Count 2.97L, Hemoglobin 8.2L, Hematocrit 25L, Red Cell Distribution Width 15.2H, Mean Platelet Volume 10.7H, Neutrophils (%) (Auto) 78H, Lymphocytes (%) (Auto) 11L, Neutrophils # (Auto) 9.0H, Monocytes # (Auto) 1.2H, Sodium Level 133L, Potassium Level 3.3L, Total Bilirubin 1.6H, Aspartate Amino Transf (AST/SGOT) 162H, Alanine Aminotransferase (ALT/SGPT) 142H , Alkaline Phosphatase 611H, Total Protein 5.7L, Albumin 2.4L, Calcium Level 8.2L Procedures None. Discharge Physical Examination Allergies: Coded Allergies: oxycodone (Unverified Allergy, Mild, 01/27/17) Vitals & I&Os Vital Signs Date Time Temp Pulse Resp B/P (MAP) Pulse Ox O2 Delivery O2 Flow Rate FiO2 11/24/18 08:00 98.9 83 18 114/57 (76) 93 Room Air 11/23/18 08:16 0.00 11/20/18 20:00 99 General Appearance: Alert, Oriented X3, Cooperative Respiratory: Clear to Auscultation Cardiovascular: Regular Rate Abdominal: Normal Bowel Sounds, No Tenderness (tenderness better since on routine pain meds) Psych/Mental Status: Other (confused) Discharge Home Medications Reviewed and agree with Discharge Medication list on patient's Discharge Instruction sheet Instructions to Patient/Family Please see electronic discharge instructions given to patient. Clinical Quality Measures DVT/VTE Risk/Contraindication: RFS Level Per Nursing on Admit: 0=No Risk/No VTE PPX NEMESIO CAMACHO DO Nov 24, 2018 13:01
== END 2018-11-24 11:23 | disposition swing bed (61) | DRG 436 ==
LOC: EDUNIT# 16:13 → ER 16:15 → 4TH 19:12
PROVIDERS: ADMIT Internal Medicine; ATTEND Family Medicine
PROC: 0FB13ZX Excision of Right Lobe Liver, Percutaneous Approach, Diagnostic (ICD-10-PCS; principal; 2018-11-21)
DX: C78.7 Secondary malignant neoplasm of liver and intrahepatic bile duct (principal); C78.01 Secondary malignant neoplasm of right lung; C78.02 Secondary malignant neoplasm of left lung; N30.01 Acute cystitis with hematuria; R17 Unspecified jaundice; Z85.038 Personal history of other malignant neoplasm of large intestine; G89.3 Neoplasm related pain (acute) (chronic); F17.210 Nicotine dependence, cigarettes, uncomplicated; Z66 Do not resuscitate; I10 Essential (primary) hypertension; I73.9 Peripheral vascular disease, unspecified; E78.00 Pure hypercholesterolemia, unspecified; K21.9 Gastro-esophageal reflux disease without esophagitis; K58.9 Irritable bowel syndrome, unspecified; M19.91 Primary osteoarthritis, unspecified site; Z92.21 Personal history of antineoplastic chemotherapy; Z95.828 Presence of other vascular implants and grafts; Z90.49 Acquired absence of other specified parts of digestive tract
CPT/HCPCS: 36415; 70450; 71045; 71260; 74177; 77012; 80053; 81000; 82140; 82378; 83605; 85007; 85025; 85027; 85610; 85730; 87040; 87088; 94664; 96374

== ENCOUNTER 2018-11-24 11:19 | Inpatient (IN) | payer MEDICARE, OTHER ==
[~2018-11-24] VITALS: Ht 152.4 cm; Wt 48.6 kg
[~2018-11-24 11:19] MED LIST changes: +ASPI325T32 PO; +BUPR-168 PO; +FURO40TA4 PO; +LOSA100T57 PO; +METO-395 PO; +NITR100C10 PO; +POTA8CAP9 PO; +ROSU40TA22 PO
--- NOTE | 2018-11-24 11:20 | NUR ---
KATJA SALDAÑA admitted to room 418-1, with an admitting diagnosis of UTI , on 11/24/18 from SWING via W/C, accompanied by [facility] .KATJA SALDAÑA introduced to surroundings, call light, bed controls, phone, TV, temperature control, lights, meal times, smoking policy, visitor policy, side rail policy, bathrooms and showers. Patient Rights given to patient in the handbook.KATJA SALDAÑA verbalizes understanding that [facility] is not responsible for the loss or damage to any personal effects or valuables that are kept in the patients posession during their hospitalization. The following Patient Care Plans were discussed with the pt and family: Discharge Planning, pain control,, and treatment and procedures. KATJA SALDAÑA verbalizes understanding of Interdisciplinary Patient Education. Patient and/or family were informed about the Rapid Response Team and its purpose.
[2018-11-24] MEDS ORDERED: ACETAMINOPHEN 500 MG TAB (TYLENOL) PO PRN (11:30)
[2018-11-24] MEDS ORDERED: PIPERACILLIN/TAZOBACTAM (BULK) 4.5 GM in NS (IVPB) 100 ML IV SCH (11:30)
[2018-11-24] MEDS ORDERED: ONDANSETRON 4 MG/2 ML (SDV) Z0FRAN IV PRN (11:30)
[2018-11-24] MEDS ORDERED: ALPRAZolam 0.25 MG (XANAX) TAB PO PRN (11:45)
--- NOTE | 2018-11-24 11:56 | NUR ---
Admission Drug Regimen Review Completed: Date: 11/24/18 Time: 1156 Physician Notified: NEMESIO CAMACHO DO Date: 11/24/18 Time: 1156 Issue Identified; Action Plan to Resolve and Any Action Taken: Xanax 0.125mg PO TID PRN was added back into [employer] per Dr. Camacho's clarification that she wanted that medication continued. It was seen as a duplicate order by [employer] and auto discontinued to the swing bed account.
--- NOTE | 2018-11-24 12:41 | NUR ---
Pt is [employer]. Treater provided prayer and Communion.
--- NOTE | 2018-11-24 13:40 | Occupational Therapy Eval ---
OT Evaluation-General/PLF Medical Diagnosis Admission Date Nov 24, 2018 at 11:30 Medical Diagnosis: colon cancer with mets Onset Date: Nov 19, 2018 Therapy Diagnosis Therapy Diagnosis: decreased self care skills Height/Weight Height (Feet): 5 Height (Inches): 0.00 Weight (Pounds): 107 Weight (Ounces): 3.0 Referral Physician: Kamilla Medical History Pertinent Medical History: Arthritis, GERD, HTN Additional Medical History high cholesterol, bilateral knee scope, stent in leg, bowel surgery, pelvic fracture Current History pt admitted with abdominal pain. Has colon cancer with mets to liver and lungs Reviewed History: Yes Social History Home: Single Level Current Living Status: Spouse Entry Into Home: Stairs With Railing Steps Into Home: 2 ADL-Prior Level of Function Therapy Code Descriptions/Definitions Functional Ford Measure: 0=Not Assessed/NA 4=Minimal Assistance 1=Total Assistance 5=Supervision or Setup 2=Maximal Assistance 6=Modified Ford 3=Moderate Assistance 7=Complete Ford Therapy Quality Codes: 6 Independent with activity with or without an assistive device 5 Patient requires set up or clean up by helper. Patient completes activity by themselves 4 Supervision or touching assist (CGA). [place] provide cues , steadying assist 3 The helper provides less than half the effort to complete the activity 2 The helper provides more than half the effort to complete the activity 1 Dependent. The helper does all the effort to complete an activity 7 Patient refused to complete or attempt activity 9 The patient did not perform the activity before the current illness or injury 88 Not attempted due to Medical conditions or safety concerns Functional Abilities and Goals: Independent: Patient completed the activities by him/herself, with or without an assistive device, with no assistance from a helper. Needed Some Help: Patient needed partial assistance from another person to complete activities. Dependent: A helper completed the activities for the patient. Unknown: Not Applicable: ADL PLOF Comments Pt reports being independent and ambulating without assistive device. Daughter states that up until 2 weeks ago, pt was feeling well and had no difficulty with functional tasks. Pt is set up with meals on wheels. Daughter states pt's spouse and other family members will be available to assist pt at d/c. Also states pt may have hospice services. Self Care: Independent OT Current Status Subjective Pt in bed, agrees to therapy with encouragement from daughter. Pt reports 6/10 abdominal pain. RN was notified. Mental Status/Objective Patient Orientation: Person Attachments: IV Current Glasses/Contacts: Yes Hearing Aids: No Dentures/Partials: No Hand Dominance: Right Upper Extremity ROM Grossly WFL Upper Extremity Coordination Intact Upper Extremity Strength decreased bilaterally ADL-Treatment ADL-Current Pt supine to sit with minimal assistance. Sat EOB with SBA for balance. Pt required assist to don slippers. Pt sit to stand with CGA. Transferred to chair with CGA using FWW. Pt declined to complete bathing or grooming at this time secondary to fatigue and states she does not need to use restroom. Requested to return to bed. Will attempt to complete ADL assessment in future sessions as pt able to tolerate. Sit to supine with SBA. Pt able to reposition self in bed. Education provided regarding role of OT and plan of care. Pt and daughter state understanding and are in agreement with plan. Pt resting in bed with needs met and daughter present after session. Eating (FIM): 5 (set up) Eating (QC): 5 Education OT Patient Education: Rehab process Teaching Recipient: Patient Teaching Methods: Discussion Response to Teaching: Verbalize Understanding OT Short Term Goals Short Term Goals 1=Demonstrate adherence to instructed precautions during ADL tasks. 2=Patient will verbalize/demonstrate understanding of assistive devices/modifications for ADL. 3=Patient will improve strength/tolerance for activity to enable patient to perform ADL's. OT Intranet Specialist Goals Intranet Specialist Goals Time Frame: Dec 08, 2018 Eating (FIM): 5 Eating (QC): 5 Groomin Oral Hygiene (QC): 5 Bathing(FIM): 5 Shower/Bathe Self (QC): 5 Upper Body Dressing(FIM): 5 Upper Body Dressing (QC): 5 Lower Body Dressing(FIM): 5 Lower Body Dressing (QC): 5 On/Off Footwear (QC): 5 Toileting(FIM): 5 Toileting Hygiene (QC): 5 Toilet/Commode Transfer(FIM): 5 Toilet/Commode Transfer (QC): 5 Additional Goals: 1-Demonstrate ADL Tasks, 2-Verbalize Understanding, 3- ImproveStrength/Raghavendra 1=Demonstrate adherence to instructed precautions during ADL tasks. 2=Patient will verbalize/demonstrate understanding of assistive devices/modifications for ADL. 3=Patient will improve strength/tolerance for activity to enable patient to perform ADL's. OT Education/Plan Problem List/Assessment Assessment: Decreased Activ Tolerance, Decreased UE Strength, Dependent Transfers, Impaired I ADL's, Impaired Self-Care Skills Pt to benefit from skilled OT intervention to increase safety with ADLs and transfers and to allow safe transition home. Discharge Recommendations Plan/Recommendations: Continue POC Treatment Plan/Plan of Care Treatment,Training & Education: Yes Patient would benefit from OT for education, treatment and training to promote independence in ADL's, mobility, safety and/or upper extremity function for ADL's. Plan of Care: ADL Retraining, Functional Mobility, UE Funct Exercise/Act Treatment Duration: Dec 08, 2018 Frequency: 5 times per week Estimated Hrs Per Day: .25 hour per day Agreement: Yes Rehab Potential: Fair Time/GCodes Start Time: 13:07 Stop Time: 13:30 Total Time Billed (hr/min): 23 Billed Treatment Time 1 visit, EVM(8minutes), FA(15minutes) TD JONES OT Nov 24, 2018 13:40
[2018-11-24] MEDS: morphine INJ 4 MG/ML 1 ML (VIAL/SYRINGE) IV PRN ×3 (13:47→18:11)
--- OUTSIDE RECORDS SUMMARY | 2018-11-24 14:18 | XMS REPORT | Continuity of Care Document ---
Author Organization Unknown Address Unknown Allergies Active Description Code Type Severity Reaction Onset Reported/Identified Relationship to Patient Clinical Status Yes acetaminophen [id number] Drug Allergy Mild N/A 04/13/2009 Yes oxycodone [id number] Drug Allergy Mild N/A 01/27/2017 Medications There is no data. Problems Date Dx Coded Attending Type Code Diagnosis Diagnosed By TERESITA SEN Ot C18.2 MALIGNANT NEOPLASM OF ASCENDING COLON TERESITA SEN Ot D64.9 ANEMIA, UNSPECIFIED TERESITA SEN Ot R91.8 OTHER NONSPECIFIC ABNORMAL FINDING OF [place] TERESITA SEN Ot Z51.11 ENCOUNTER FOR ANTINEOPLASTIC CHEMOTHERAP TERESITA SEN Ot Z72.0 TOBACCO USE TERESITA SEN Ot Z79.899 OTHER PRISON (CURRENT) DRUG THERAPY 05/19/1336 TERESITA SEN Ot C18.2 MALIGNANT NEOPLASM OF ASCENDING COLON 05/19/1336 TERESITA SEN Ot D64.9 ANEMIA, UNSPECIFIED 05/19/1336 TERESITA SEN Ot F17.210 NICOTINE DEPENDENCE, CIGARETTES, UNCOMPL 05/19/1336 TERESITA SEN Ot M47.816 SPONDYLOSIS W/O MYELOPATHY OR RADICULOPA 05/19/1336 TERESITA SEN Ot N28.1 CYST OF KIDNEY, ACQUIRED 05/19/1336 TERESITA SEN Ot R59.0 LOCALIZED ENLARGED LYMPH NODES 05/19/1336 TERESITA SEN Ot R91.8 OTHER NONSPECIFIC ABNORMAL FINDING OF [place] 05/19/1336 TERESITA SEN Ot Z79.899 OTHER PINION AND WHEEL TRUER (CURRENT) DRUG THERAPY 05/12/2009 Ot 211.3 BENIGN NEOPLASM LG BOWEL 05/12/2009 Ot V16.0 FAMILY HX-GI MALIGNANCY 05/12/2009 Ot V67.09 SURGERY FOLLOW- UP, OTHER SURGERY 03/01/2011 Ot 272.4 HYPERLIPIDEMIA NEC/NOS 03/01/2011 Ot 305.1 TOBACCO USE DISORDER 03/01/2011 Ot 401.9 HYPERTENSION NOS 03/01/2011 Ot 424.0 MITRAL VALVE DISORDER 03/01/2011 Ot 443.9 PERIPH VASCULAR DIS NOS 03/01/2011 Ot 496 CHR AIRWAY OBSTRUCT NEC 03/01/2011 Ot 719.46 JOINT PAIN-L/LEG 03/01/2011 Ot 786.59 CHEST PAIN NEC 03/01/2011 Ot V58.69 OTH MED,LT,CURRENT USE 03/03/2011 Ot 401.9 HYPERTENSION NOS 03/03/2011 Ot 717.3 DERANG MED MENISCUS NEC 03/03/2011 Ot 717.7 CHONDROMALACIA PATELLAE 03/03/2011 Ot V57.1 PHYSICAL THERAPY NEC 03/03/2011 Ot V58.69 OTH MED,LT,CURRENT USE 07/07/2011 Ot 715.96 OSTEOARTHROS NOS-L/LEG 07/07/2011 Ot 726.10 BURSAE TENDONS DIS SHLDER NOS 07/07/2011 Ot 726.12 BICIPITAL TENOSYNOVITIS 07/07/2011 Ot 726.19 ROTATOR CUFF DIS NEC 12/01/2011 Ot 305.1 TOBACCO USE DISORDER 12/01/2011 Ot 401.9 HYPERTENSION NOS 12/01/2011 Ot 717.3 DERANG MED MENISCUS NEC 12/01/2011 Ot 717.7 CHONDROMALACIA PATELLAE 12/01/2011 Ot V57.1 PHYSICAL THERAPY NEC 12/01/2011 Ot V58.66 LONG-TERM (CURRENT) USE OF ASPIRIN 12/01/2011 Ot V58.69 OTH MED,LT,CURRENT USE 10/27/2012 LAUREN AUSTIN DO Ot 789.09 ABDOMINAL PAIN, OTHER SPECIFIED SITE 10/27/2012 LAUREN AUSTIN DO Ot 923.11 CONTUSION OF ELBOW 10/27/2012 LAUREN AUSTIN DO Ot E000.8 OTHER EXTERNAL CAUSE STATUS 10/27/2012 LAUREN AUSTIN DO Ot E849.6 ACCIDENT IN PUBLIC BLDG 10/27/2012 LAUREN AUSTIN DO Ot E880.9 FALL ON STAIR/STEP NEC 12/30/2012 KURT AGUILAR, ELIESER Butcher Ot 569.3 RECTAL ANAL HEMORRHAGE 01/05/2013 RADHA KOHLI DO Ot V54.19 AFTERCARE HEALING TRAUMATIC FX OTHER BON 01/05/2013 RADHA KOHLI DO Ot V57.1 PHYSICAL THERAPY NEC 01/22/2013 URIEL AGUILAR, ANDREW [place] Ot 211.3 BENIGN NEOPLASM LG BOWEL 01/22/2013 URIEL AGUILAR, ANDREW [place] Ot 401.9 HYPERTENSION NOS 01/22/2013 URIEL AGUILAR, ANDREW [place] Ot 455.0 INT HEMORRHOID W/O COMPL 01/22/2013 URIEL AGUILAR, ANDREW [place] Ot 562.10 DIVERTICULOSIS COLON (W/O MENT OF HEMORR 12/17/2014 RADHA KOHLI DO Ot 276.51 DEHYDRATION 12/17/2014 RADHA KOHLI DO Ot 780.4 DIZZINESS AND GIDDINESS 12/17/2014 RADHA KOHLI DO Ot 780.79 OTH MALAISE FATIGUE 12/17/2014 RADHA KOHLI DO Ot 787.02 NAUSEA ALONE 12/17/2014 RADHA KOHLI DO Ot V13.02 PERSONAL HISTORY, URINARY (TRACT) INFECT 12/17/2014 RADHA KOHLI DO Ot V58.69 OTH MED,LT,CURRENT USE 10/13/2015 Ot V76.12 OTH SCREEN MAMMO- MALIGN NEOPLASM OF INOCENCIO 10/13/2015 Ot V76.12 OTH SCREEN MAMMO- MALIGN NEOPLASM OF INOCENCIO 10/13/2015 Ot 719.06 JOINT EFFUSION- L/LEG 10/13/2015 Ot 719.46 JOINT PAIN-L/LEG 10/13/2015 Ot 717.3 DERANG MED MENISCUS NEC 10/13/2015 Ot V72.83 EXAM PRE-OPERATIVE NEC 10/13/2015 Ot 727.61 ROTATOR CUFF RUPTURE 10/13/2015 Ot V72.63 PRE-PROCEDURAL LABORATORY EXAMINATION 10/13/2015 Ot V74.8 SCREEN-BACTERIAL DIS NEC 10/13/2015 Ot 717.3 DERANG MED MENISCUS NEC 10/13/2015 Ot V72.63 PRE-PROCEDURAL LABORATORY EXAMINATION 10/13/2015 Ot V74.8 SCREEN-BACTERIAL DIS NEC 10/13/2015 Ot V76.12 OTH SCREEN MAMMO- MALIGN NEOPLASM OF INOCENCIO 10/13/2015 JANICE FARLEY, RADHA S Ot 719.45 JOINT PAIN-PELVIS 10/13/2015 URIEL AGUILAR, ANDREW [place] Ot V72.84 EXAM PRE-OPERATIVE NOS 10/13/2015 CONNIENDSALVATORE FARLEY, RADHA S Ot 733.90 BONE CARTILAGE DIS NOS 11/05/2015 FRANK AGUILAR, TWILA Elaine Ot I10 ESSENTIAL (PRIMARY) HYPERTENSION 11/05/2015 FRANK AGUILAR, TWILA Elaine Ot J44.9 CHRONIC OBSTRUCTIVE PULMONARY DISEASE, U 12/24/2015 CONNIENDER FLORENCE FARLEYRADHA S Ot K85.9 ACUTE PANCREATITIS, UNSPECIFIED 12/24/2015 CONNIENDER FLORENCE FARLEYRADHA S Ot M79.89 OTHER SPECIFIED SOFT TISSUE DISORDERS 12/25/2015 CONNIENDRADHA CHASE DO S Ot K85.9 ACUTE PANCREATITIS, UNSPECIFIED 12/25/2015 CONNIENDFLORENCE CHASE DOQUELINE S Ot M79.89 OTHER SPECIFIED SOFT TISSUE DISORDERS 12/30/2015 MESHA EWING MD Ot Z01.818 ENCOUNTER FOR OTHER PREPROCEDURAL EXAMIN 12/31/2015 MESHA EWING MD, Ot Z01.818 ENCOUNTER FOR OTHER PREPROCEDURAL EXAMIN 01/01/2016 MESHA EWING MD, Ot K21.0 GASTRO-ESOPHAGEAL REFLUX DISEASE WITH ES 01/01/2016 MESHA EWING MD, Ot K29.70 GASTRITIS, UNSPECIFIED, WITHOUT BLEEDING 01/01/2016 MESHA EWING MD, Ot K44.9 DIAPHRAGMATIC HERNIA WITHOUT OBSTRUCTION 01/01/2016 MESHA EWING MD, Ot K63.9 DISEASE OF INTESTINE, UNSPECIFIED 01/01/2016 MESHA EWING MD, Ot K64.1 SECOND DEGREE HEMORRHOIDS 01/01/2016 MESHA EWING MD, Ot Z80.0 FAMILY HISTORY OF MALIGNANT NEOPLASM OF 01/01/2016 MESHA EWING MD, Ot Z86.010 PERSONAL HISTORY OF COLONIC POLYPS 01/06/2016 MESHA EWING MD, Ot K21.0 GASTRO-ESOPHAGEAL REFLUX DISEASE WITH ES 01/06/2016 MESHA EWING MD, Ot K29.70 GASTRITIS, UNSPECIFIED, WITHOUT BLEEDING 01/06/2016 MESHA EWING MD, Ot K44.9 DIAPHRAGMATIC HERNIA WITHOUT OBSTRUCTION 01/06/2016 MESHA EWING MD, Ot K63.9 DISEASE OF INTESTINE, UNSPECIFIED 01/06/2016 MESHA EWING MD, Ot K64.1 SECOND DEGREE HEMORRHOIDS 01/06/2016 MESHA EWING MD, Ot Z80.0 FAMILY HISTORY OF MALIGNANT NEOPLASM OF 01/06/2016 MESHA EWING MD, Ot Z86.010 PERSONAL HISTORY OF COLONIC POLYPS 01/08/2016 MESHA EWING MD, Ot C18.9 MALIGNANT NEOPLASM OF COLON, UNSPECIFIED 01/08/2016 MESHA EWING MD, Ot Z01.812 ENCOUNTER FOR PREPROCEDURAL LABORATORY E 01/08/2016 MESHA EWING MD, Ot Z11.2 ENCOUNTER FOR SCREENING FOR OTHER BACTER 01/08/2016 RADHA KOHLI DO Ot K85.9 ACUTE PANCREATITIS, UNSPECIFIED 01/08/2016 RADHA KOHLI DO S Ot M79.89 OTHER SPECIFIED SOFT TISSUE DISORDERS 01/09/2016 MESHA EWING MD, Ot C18.9 MALIGNANT NEOPLASM OF COLON, UNSPECIFIED 01/09/2016 MESHA EWING MD, Ot Z01.812 ENCOUNTER FOR PREPROCEDURAL LABORATORY E 01/09/2016 MESHA EWING MD, Ot Z11.2 ENCOUNTER FOR SCREENING FOR OTHER BACTER 01/09/2016 MESHA EWING MD, Ot K21.0 GASTRO-ESOPHAGEAL REFLUX DISEASE WITH ES 01/09/2016 MESHA EWING MD, Ot K29.70 GASTRITIS, UNSPECIFIED, WITHOUT BLEEDING 01/09/2016 MESHA EWING MD, Ot K44.9 DIAPHRAGMATIC HERNIA WITHOUT OBSTRUCTION 01/09/2016 MESHA EWING MD, Ot K63.9 DISEASE OF INTESTINE, UNSPECIFIED 01/09/2016 MESHA EWING MD, Ot K64.1 SECOND DEGREE HEMORRHOIDS 01/09/2016 MESHA EWING MD, Ot Z80.0 FAMILY HISTORY OF MALIGNANT NEOPLASM OF 01/09/2016 MESHA EWING MD, Ot Z86.010 PERSONAL HISTORY OF COLONIC POLYPS 01/13/2016 MESHA EWING MD, Ot C18.2 MALIGNANT NEOPLASM OF ASCENDING COLON 01/13/2016 MESHA EWING MD, Ot E78.0 PURE HYPERCHOLESTEROLEMIA 01/13/2016 MESHA EWING MD, Ot F17.210 NICOTINE DEPENDENCE, CIGARETTES, UNCOMPL 01/13/2016 MESHA EWING MD, Ot F32.9 MAJOR DEPRESSIVE DISORDER, SINGLE EPISOD 01/13/2016 MESHA EWING MD, Ot F41.9 ANXIETY DISORDER, UNSPECIFIED 01/13/2016 MESHA EWING MD Ot I10 ESSENTIAL (PRIMARY) HYPERTENSION 01/13/2016 MESHA EWING MD, Ot J44.9 CHRONIC OBSTRUCTIVE PULMONARY DISEASE, U 01/13/2016 MESHA EWING MD Ot K21.0 GASTRO-ESOPHAGEAL REFLUX DISEASE WITH ES 01/13/2016 MESHA EWING MD, Ot K21.9 GASTRO-ESOPHAGEAL REFLUX DISEASE WITHOUT 01/13/2016 MESHA EWING MD, Ot 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 01/13/2016 MESHA EWING MD, Ot K29.70 GASTRITIS, UNSPECIFIED, WITHOUT BLEEDING 01/13/2016 MESHA EWING MD, Ot K44.9 DIAPHRAGMATIC HERNIA WITHOUT OBSTRUCTION 01/13/2016 MESHA EWING MD, Ot K64.1 SECOND DEGREE HEMORRHOIDS 01/13/2016 MESHA EWING MD, Ot Z80.0 FAMILY HISTORY OF MALIGNANT NEOPLASM OF 01/13/2016 MESHA EWING MD Ot Z86.010 PERSONAL HISTORY OF COLONIC POLYPS 02/06/2016 MESHA EWING MD, Ot K21.0 GASTRO-ESOPHAGEAL REFLUX DISEASE WITH ES 02/06/2016 MESHA EWING MD, Ot K29.70 GASTRITIS, UNSPECIFIED, WITHOUT BLEEDING 02/06/2016 MESHA EWING MD, Ot K44.9 DIAPHRAGMATIC HERNIA WITHOUT OBSTRUCTION 02/06/2016 MESHA EWING MD Ot K63.9 DISEASE OF INTESTINE, UNSPECIFIED 02/06/2016 MESHA EWING MD Ot K64.1 SECOND DEGREE HEMORRHOIDS 02/06/2016 MESHA EWING MD Ot Z80.0 FAMILY HISTORY OF MALIGNANT NEOPLASM OF 02/06/2016 MESHA EWING MD Ot Z86.010 PERSONAL HISTORY OF COLONIC POLYPS 02/13/2016 TWILA MARIE MD Ot I10 ESSENTIAL (PRIMARY) HYPERTENSION 02/13/2016 TWILA MARIE MD Ot J44.9 CHRONIC OBSTRUCTIVE PULMONARY DISEASE, U 02/13/2016 RADHA KOHLI DO Ot K85.9 ACUTE PANCREATITIS, UNSPECIFIED 02/13/2016 RADHA KOHLI DO Ot M79.89 OTHER SPECIFIED SOFT TISSUE DISORDERS 02/13/2016 MESHA EWING MD Ot K21.0 GASTRO-ESOPHAGEAL REFLUX DISEASE WITH ES 02/13/2016 MESHA EWING MD, Ot K29.70 GASTRITIS, UNSPECIFIED, WITHOUT BLEEDING 02/13/2016 MESHA EWING MD, Ot K44.9 DIAPHRAGMATIC HERNIA WITHOUT OBSTRUCTION 02/13/2016 MESHA EWING MD Ot K63.9 DISEASE OF INTESTINE, UNSPECIFIED 02/13/2016 MESHA EWING MD Ot K64.1 SECOND DEGREE HEMORRHOIDS 02/13/2016 MESHA EWING MD, Ot Z80.0 FAMILY HISTORY OF MALIGNANT NEOPLASM OF 02/13/2016 MESHA EWING MD, Ot Z86.010 PERSONAL HISTORY OF COLONIC POLYPS 02/13/2016 TERESITA SEN Ot C18.2 MALIGNANT NEOPLASM OF ASCENDING COLON 02/17/2016 Ot V76.12 OTH SCREEN MAMMO- MALIGN NEOPLASM OF INOCENCIO 02/17/2016 Ot V76.12 OTH SCREEN MAMMO- MALIGN NEOPLASM OF INOCENCIO 02/17/2016 Ot 719.06 JOINT EFFUSION- L/LEG 02/17/2016 Ot 719.46 JOINT PAIN-L/LEG 02/17/2016 Ot 717.3 DERANG MED MENISCUS NEC 02/17/2016 Ot V72.83 EXAM PRE-OPERATIVE NEC 02/17/2016 Ot 727.61 ROTATOR CUFF RUPTURE 02/17/2016 Ot V72.63 PRE-PROCEDURAL LABORATORY EXAMINATION 02/17/2016 Ot V74.8 SCREEN-BACTERIAL DIS NEC 02/17/2016 Ot 717.3 DERANG MED MENISCUS NEC 02/17/2016 Ot V72.63 PRE-PROCEDURAL LABORATORY EXAMINATION 02/17/2016 Ot V74.8 SCREEN-BACTERIAL DIS NEC 02/17/2016 Ot V76.12 OTH SCREEN MAMMO- MALIGN NEOPLASM OF INOCENCIO 02/17/2016 RADHA KOHLI DO Ot 719.45 JOINT PAIN-PELVIS 02/17/2016 URIEL AGUILAR, ANDREW [place] Ot V72.84 EXAM PRE-OPERATIVE NOS 02/17/2016 RADHA KOHLI DO Ot 733.90 BONE CARTILAGE DIS NOS 02/18/2016 TERESITA SEN Ot C18.2 MALIGNANT NEOPLASM OF ASCENDING COLON 02/18/2016 MCKINLEY, BOBAN N Ot C18.2 MALIGNANT NEOPLASM OF ASCENDING COLON 02/23/2016 TERESITA SEN N Ot C18.2 MALIGNANT NEOPLASM OF ASCENDING COLON 02/24/2016 TERESITA SEN N Ot C18.2 MALIGNANT NEOPLASM OF ASCENDING COLON 03/11/2016 TERESITA SEN N Ot C18.2 MALIGNANT NEOPLASM OF ASCENDING COLON 03/22/2016 TERESITA SEN N Ot C18.2 MALIGNANT NEOPLASM OF ASCENDING COLON 03/22/2016 TERESITA SEN N Ot D64.9 ANEMIA, UNSPECIFIED 03/22/2016 TERESITA SEN N Ot R91.8 OTHER NONSPECIFIC ABNORMAL FINDING OF [place] 03/22/2016 TERESITA SEN N Ot Z51.11 ENCOUNTER FOR ANTINEOPLASTIC CHEMOTHERAP 03/22/2016 TERESITA SEN N Ot Z72.0 TOBACCO USE 03/22/2016 TERESITA SEN N Ot Z79.899 OTHER PINION AND WHEEL TRUER (CURRENT) DRUG THERAPY 03/24/2016 TERESITA SEN N Ot C18.2 MALIGNANT NEOPLASM OF ASCENDING COLON 03/24/2016 TERESITA SEN N Ot C18.2 MALIGNANT NEOPLASM OF ASCENDING COLON 03/30/2016 TERESITA SEN N Ot C18.2 MALIGNANT NEOPLASM OF ASCENDING COLON 03/30/2016 TERESITA SEN N Ot D64.9 ANEMIA, UNSPECIFIED 03/30/2016 TERESITA SEN N Ot R91.8 OTHER NONSPECIFIC ABNORMAL FINDING OF [place] 03/30/2016 TERESITA SEN N Ot Z72.0 TOBACCO USE 03/30/2016 TERESITA SEN N Ot Z79.899 OTHER PINION AND WHEEL TRUER (CURRENT) DRUG THERAPY 05/10/2016 Ot 719.06 JOINT EFFUSION- L/LEG 05/10/2016 Ot 719.46 JOINT PAIN-L/LEG 05/10/2016 Ot 717.3 DERANG MED MENISCUS NEC 05/10/2016 Ot V72.83 EXAM PRE-OPERATIVE NEC 05/10/2016 Ot 727.61 ROTATOR CUFF RUPTURE 05/10/2016 Ot V72.63 PRE-PROCEDURAL LABORATORY EXAMINATION 05/10/2016 Ot V74.8 SCREEN-BACTERIAL DIS NEC 05/10/2016 Ot 717.3 DERANG MED MENISCUS NEC 05/10/2016 Ot V72.63 PRE-PROCEDURAL LABORATORY EXAMINATION 05/10/2016 Ot V74.8 SCREEN-BACTERIAL DIS NEC 05/10/2016 Ot V76.12 OTH SCREEN MAMMO- MALIGN NEOPLASM OF INOCENCIO 05/10/2016 JANICE FARLEY RADHA S Ot 719.45 JOINT PAIN-PELVIS 05/10/2016 URIEL AGUILAR, ANDREW [place] Ot V72.84 EXAM PRE-OPERATIVE NOS 05/10/2016 JANICE DO RADHA S Ot 733.90 BONE CARTILAGE DIS NOS 05/10/2016 FRANK AGUILAR, TWILA Elaine Ot I10 ESSENTIAL (PRIMARY) HYPERTENSION 05/10/2016 FRANK AGUILAR, TWILA Elaine Ot J44.9 CHRONIC OBSTRUCTIVE PULMONARY DISEASE, U 05/10/2016 CONNIEKARAN RADHA FARLEY S Ot K85.9 ACUTE PANCREATITIS, UNSPECIFIED 05/10/2016 CONNIEKARAN RADHA FARLEY S Ot M79.89 OTHER SPECIFIED SOFT TISSUE DISORDERS 05/10/2016 MESHA EWING MD Ot K21.0 GASTRO-ESOPHAGEAL REFLUX DISEASE WITH ES 05/10/2016 MESHA EWING MD, Ot K29.70 GASTRITIS, UNSPECIFIED, WITHOUT BLEEDING 05/10/2016 MESHA EWING MD Ot K44.9 DIAPHRAGMATIC HERNIA WITHOUT OBSTRUCTION 05/10/2016 MESHA EWING MD Ot K63.9 DISEASE OF INTESTINE, UNSPECIFIED 05/10/2016 MESHA EWING MD Ot K64.1 SECOND DEGREE HEMORRHOIDS 05/10/2016 MESHA EWING MD Ot Z80.0 FAMILY HISTORY OF MALIGNANT NEOPLASM OF 05/10/2016 MESHA EWING MD, Ot Z86.010 PERSONAL HISTORY OF COLONIC POLYPS 05/10/2016 TERESITA SEN Ot C18.2 MALIGNANT NEOPLASM OF ASCENDING COLON 05/10/2016 TERESITA SEN Ot C18.2 MALIGNANT NEOPLASM OF ASCENDING COLON 05/10/2016 TERESITA SEN Ot D64.9 ANEMIA, UNSPECIFIED 05/10/2016 TERESITA SEN Ot R91.8 OTHER NONSPECIFIC ABNORMAL FINDING OF [place] 05/10/2016 TERESITA SEN Ot Z72.0 TOBACCO USE 05/10/2016 TERESITA SEN Ot Z79.899 OTHER PRISON (CURRENT) DRUG THERAPY 05/17/2016 TERESITA SEN Ot C18.2 MALIGNANT NEOPLASM OF ASCENDING COLON 05/17/2016 TERESITA SEN Ot D64.9 ANEMIA, UNSPECIFIED 05/17/2016 MCKINLEY, BOBAN N Ot R91.8 OTHER NONSPECIFIC ABNORMAL FINDING OF [place] 05/17/2016 TERESITA SEN Ot Z72.0 TOBACCO USE 05/17/2016 TERESITA SEN Ot Z79.899 OTHER PINION AND WHEEL TRUER (CURRENT) DRUG THERAPY 05/19/2016 TERESITA SEN Ot C18.2 MALIGNANT NEOPLASM OF ASCENDING COLON 05/19/2016 TERESITA SEN Ot D64.9 ANEMIA, UNSPECIFIED 05/19/2016 TERESITA SEN Ot R91.8 OTHER NONSPECIFIC ABNORMAL FINDING OF [place] 05/19/2016 TERESITA SEN Ot Z72.0 TOBACCO USE 05/19/2016 TERESITA SEN Ot Z79.899 OTHER PINION AND WHEEL TRUER (CURRENT) DRUG THERAPY 05/22/2016 DANELLE MAYO APRN Ot C18.9 MALIGNANT NEOPLASM OF COLON, UNSPECIFIED 05/22/2016 DANELLE MAYO APRN Ot D70.9 NEUTROPENIA, UNSPECIFIED 05/22/2016 DANELLE MAYO APRN Ot F17.210 NICOTINE DEPENDENCE, CIGARETTES, UNCOMPL 05/22/2016 DANELLE MAYO APRN Ot I10 ESSENTIAL (PRIMARY) HYPERTENSION 05/22/2016 DANELLE MAYO APRN Ot N39.0 URINARY TRACT INFECTION, SITE NOT SPECIF 05/22/2016 DANELLE MAYO APRN Ot R05 COUGH 05/22/2016 DANELLE MAYO APRN Ot R19.7 DIARRHEA, UNSPECIFIED 05/22/2016 DANELLE MAYO APRN Ot Z79.82 PINION AND WHEEL TRUER (CURRENT) USE OF ASPIRIN 05/22/2016 DANELLE MAYO APRN Ot Z79.899 OTHER PRISON (CURRENT) DRUG THERAPY 05/22/2016 DANELLE MAYO APRN Ot Z90.49 ACQUIRED ABSENCE OF OTHER SPECIFIED PART 05/25/2016 DANELLE MAYO APRN Ot C18.9 MALIGNANT NEOPLASM OF COLON, UNSPECIFIED 05/25/2016 DANELLE MAYO APRN Ot D70.9 NEUTROPENIA, UNSPECIFIED 05/25/2016 DANELLE MAYO APRN Ot F17.210 NICOTINE DEPENDENCE, CIGARETTES, UNCOMPL 05/25/2016 DANELLE MAYO BACON STRINGER Ot I10 ESSENTIAL (PRIMARY) HYPERTENSION 05/25/2016 DANELLE MAYO APRN Ot N39.0 URINARY TRACT INFECTION, SITE NOT SPECIF 05/25/2016 DANELLE MAYO BACON STRINGER Ot R05 COUGH 05/25/2016 DANELLE MAYO BACON STRINGER Ot R19.7 DIARRHEA, UNSPECIFIED 05/25/2016 DANELLE MAYO BACON STRINGER Ot Z79.82 PINION AND WHEEL TRUER (CURRENT) USE OF ASPIRIN 05/25/2016 DANELLE MAYO BACON STRINGER Ot Z79.899 OTHER PRISON (CURRENT) DRUG THERAPY 05/25/2016 DANELLE MAYO BACON STRINGER Ot Z90.49 ACQUIRED ABSENCE OF OTHER SPECIFIED PART 06/02/2016 RADHA KOHLI DO S Ot R05 COUGH 06/03/2016 SHOBHA FIORE [employer]STANCE ABUSE SERVICES DIRECTOR Ot C18.2 MALIGNANT NEOPLASM OF ASCENDING COLON 06/04/2016 SHOBHA FIORE SUBSTANCE ABUSE SERVICES DIRECTOR Ot C18.2 MALIGNANT NEOPLASM OF ASCENDING COLON 06/21/2016 MCKINLEYTERESITA KELLEY N Ot C18.2 MALIGNANT NEOPLASM OF ASCENDING COLON 06/21/2016 TERESITA SEN N Ot D64.9 ANEMIA, UNSPECIFIED 06/21/2016 MCKINLEY, BOBJOSE N Ot R91.8 OTHER NONSPECIFIC ABNORMAL FINDING OF [place] 06/21/2016 TERESITA SEN N Ot Z51.11 ENCOUNTER FOR ANTINEOPLASTIC CHEMOTHERAP 06/21/2016 MCKINLEYTERESITA KELLEY N Ot Z72.0 TOBACCO USE 06/21/2016 MCKINLEY, BOBAN N Ot Z79.899 OTHER PRISON (CURRENT) DRUG THERAPY 06/23/2016 TERESITA SEN N Ot C18.2 MALIGNANT NEOPLASM OF ASCENDING COLON 06/23/2016 MCKINLEYTERESITA KELLEY N Ot D64.9 ANEMIA, UNSPECIFIED 06/23/2016 MCKINLEY, BOBAN N Ot R91.8 OTHER NONSPECIFIC ABNORMAL FINDING OF KING 06/23/2016 MCKINLEYTERESITA KELLEY N Ot Z72.0 TOBACCO USE 06/23/2016 MCKINLEYHEAN N Ot Z79.899 OTHER PRISON (CURRENT) DRUG THERAPY 06/24/2016 MCKINLEYTERESITA KELLEY N Ot C18.2 MALIGNANT NEOPLASM OF ASCENDING COLON 06/24/2016 MCKINLEY, HEJOSE N Ot D64.9 ANEMIA, UNSPECIFIED 06/24/2016 MCKINLEY BOBAN N Ot R91.8 OTHER NONSPECIFIC ABNORMAL FINDING OF KING 06/24/2016 MCKINLEYTERESITA KELLEY N Ot Z72.0 TOBACCO USE 06/24/2016 MCKINLEY BOBAN N Ot Z79.899 OTHER PINION AND WHEEL TRUER (CURRENT) DRUG THERAPY 06/24/2016 SHOBHA FIORE SUBSTANCE ABUSE SERVICES DIRECTOR Ot C18.2 MALIGNANT NEOPLASM OF ASCENDING COLON 08/12/2016 TERESITA SEN Ot C18.2 MALIGNANT NEOPLASM OF ASCENDING COLON 08/12/2016 TERESITA SEN Ot D64.9 ANEMIA, UNSPECIFIED 08/12/2016 TERESITA SEN Ot R91.8 OTHER NONSPECIFIC ABNORMAL FINDING OF [place] 08/12/2016 TERESITA SEN Ot Z51.11 ENCOUNTER FOR ANTINEOPLASTIC CHEMOTHERAP 08/12/2016 TERESITA SEN Ot Z72.0 TOBACCO USE 08/12/2016 TERESITA SEN Ot Z79.899 OTHER PRISON (CURRENT) DRUG THERAPY 08/19/2016 MESHA EWING MD Ot K21.0 GASTRO-ESOPHAGEAL REFLUX DISEASE WITH ES 08/19/2016 MESHA EWING MD Ot K29.70 GASTRITIS, UNSPECIFIED, WITHOUT BLEEDING 08/19/2016 MESHA EWING MD, Ot K44.9 DIAPHRAGMATIC HERNIA WITHOUT OBSTRUCTION 08/19/2016 MESHA EWING MD Ot K63.9 DISEASE OF INTESTINE, UNSPECIFIED 08/19/2016 MESHA EWING MD Ot K64.1 SECOND DEGREE HEMORRHOIDS 08/19/2016 MESHA EWING MD Ot Z80.0 FAMILY HISTORY OF MALIGNANT NEOPLASM OF 08/19/2016 MESHA EWING MD Ot Z86.010 PERSONAL HISTORY OF COLONIC POLYPS 08/19/2016 MESHA EWING MD, Ot K21.0 GASTRO-ESOPHAGEAL REFLUX DISEASE WITH ES 08/19/2016 MESHA EWING MD Ot K29.70 GASTRITIS, UNSPECIFIED, WITHOUT BLEEDING 08/19/2016 MESHA EWING MD Ot K44.9 DIAPHRAGMATIC HERNIA WITHOUT OBSTRUCTION 08/19/2016 MESHA EWING MD Ot K63.9 DISEASE OF INTESTINE, UNSPECIFIED 08/19/2016 MESHA EWING MD Ot K64.1 SECOND DEGREE HEMORRHOIDS 08/19/2016 MESHA EWING MD Ot Z80.0 FAMILY HISTORY OF MALIGNANT NEOPLASM OF 08/19/2016 MESHA EWING MD Ot Z86.010 PERSONAL HISTORY OF COLONIC POLYPS 08/31/2016 SHOBHA FIORE SUBSTANCE ABUSE SERVICES DIRECTOR Ot C18.2 MALIGNANT NEOPLASM OF ASCENDING COLON 08/31/2016 SHOBHA FIORE SUBSTANCE ABUSE SERVICES DIRECTOR Ot R91.8 OTHER NONSPECIFIC ABNORMAL FINDING OF [place] 09/21/2016 TERSEITA SEN N Ot C18.2 MALIGNANT NEOPLASM OF ASCENDING COLON 09/21/2016 TERESITA SEN N Ot D64.9 ANEMIA, UNSPECIFIED 09/21/2016 MCKINLEYTERESITA KELLEY N Ot R91.8 OTHER NONSPECIFIC ABNORMAL FINDING OF [place] 09/21/2016 TERESITA SEN N Ot Z51.11 ENCOUNTER FOR ANTINEOPLASTIC CHEMOTHERAP 09/21/2016 TERESITA SEN N Ot Z72.0 TOBACCO USE 09/21/2016 TERESITA SEN N Ot Z79.899 OTHER PRISON (CURRENT) DRUG THERAPY 09/21/2016 SHOBHA [employer]ORE [employer] DIRECTOR Ot C18.2 MALIGNANT NEOPLASM OF ASCENDING COLON 09/21/2016 SHOBHA FIORE [employer] DIRECTOR Ot R91.8 OTHER NONSPECIFIC ABNORMAL FINDING OF [place] 09/22/2016 TERESITA SEN N Ot C18.2 MALIGNANT NEOPLASM OF ASCENDING COLON 09/22/2016 TERESITA SEN N Ot D64.9 ANEMIA, UNSPECIFIED 09/22/2016 TERESITA SEN N Ot R91.8 OTHER NONSPECIFIC ABNORMAL FINDING OF [place] 09/22/2016 TERESITA SEN N Ot Z51.11 ENCOUNTER FOR ANTINEOPLASTIC CHEMOTHERAP 09/22/2016 TERESITA SEN N Ot Z72.0 TOBACCO USE 09/22/2016 TERESITA SEN N Ot Z79.899 OTHER PINION AND WHEEL TRUER (CURRENT) DRUG THERAPY 09/24/2016 TERESITA SEN N Ot C18.2 MALIGNANT NEOPLASM OF ASCENDING COLON 09/24/2016 TERESITA SEN N Ot D64.9 ANEMIA, UNSPECIFIED 09/24/2016 TERESITA SEN N Ot R91.8 OTHER NONSPECIFIC ABNORMAL FINDING OF [place] 09/24/2016 TERESITA SEN N Ot Z51.11 ENCOUNTER FOR ANTINEOPLASTIC CHEMOTHERAP 09/24/2016 TERESITA SEN N Ot Z72.0 TOBACCO USE 09/24/2016 TERESITA SEN N Ot Z79.899 OTHER PRISON (CURRENT) DRUG THERAPY 09/28/2016 Ot 727.61 ROTATOR CUFF RUPTURE 09/28/2016 Ot V72.63 PRE-PROCEDURAL LABORATORY EXAMINATION 09/28/2016 Ot V74.8 SCREEN-BACTERIAL DIS NEC 09/28/2016 Ot 717.3 DERANG MED MENISCUS NEC 09/28/2016 Ot V72.63 PRE-PROCEDURAL LABORATORY EXAMINATION 09/28/2016 Ot V74.8 SCREEN-BACTERIAL DIS NEC 09/28/2016 Ot V76.12 OTH SCREEN MAMMO- MALIGN NEOPLASM OF INOCENCIO 09/28/2016 CONNIEKARAN RADHA FARLEY Ot 719.45 JOINT PAIN-PELVIS 09/28/2016 URIEL AGUILAR, ANDREW [place] Ot V72.84 EXAM PRE-OPERATIVE NOS 09/28/2016 CONNIEKARAN RADHA FARLEY Ot 733.90 BONE CARTILAGE DIS NOS 09/28/2016 MESHA EWING MD Ot K21.0 GASTRO-ESOPHAGEAL REFLUX DISEASE WITH ES 09/28/2016 MESHA EWING MD Ot K29.70 GASTRITIS, UNSPECIFIED, WITHOUT BLEEDING 09/28/2016 MESHA EWING MD Ot K44.9 DIAPHRAGMATIC HERNIA WITHOUT OBSTRUCTION 09/28/2016 MESHA EWING MD Ot K63.9 DISEASE OF INTESTINE, UNSPECIFIED 09/28/2016 MESHA EWING MD Ot K64.1 SECOND DEGREE HEMORRHOIDS 09/28/2016 MESHA EWING MD Ot Z80.0 FAMILY HISTORY OF MALIGNANT NEOPLASM OF 09/28/2016 MESHA EWING MD Ot Z86.010 PERSONAL HISTORY OF COLONIC POLYPS 09/28/2016 TERESITA SEN Ot C18.2 MALIGNANT NEOPLASM OF ASCENDING COLON 09/28/2016 RADHA KOHLI DO Ot R05 COUGH 09/28/2016 SHOBHA FIORE [employer] DIRECTOR Ot C18.2 MALIGNANT NEOPLASM OF ASCENDING COLON 09/28/2016 SHOBHA FIORE [employer] DIRECTOR Ot C18.2 MALIGNANT NEOPLASM OF ASCENDING COLON 09/28/2016 SHOBHA FIORE [employer] DIRECTOR Ot R91.8 OTHER NONSPECIFIC ABNORMAL FINDING OF [place] 09/28/2016 Ot 727.61 ROTATOR CUFF RUPTURE 09/28/2016 Ot V72.63 PRE-PROCEDURAL LABORATORY EXAMINATION 09/28/2016 Ot V74.8 SCREEN-BACTERIAL DIS NEC 09/28/2016 Ot 717.3 DERANG MED MENISCUS NEC 09/28/2016 Ot V72.63 PRE-PROCEDURAL LABORATORY EXAMINATION 09/28/2016 Ot V74.8 SCREEN-BACTERIAL DIS NEC 09/28/2016 Ot V76.12 OTH SCREEN MAMMO- MALIGN NEOPLASM OF INOCENCIO 09/28/2016 RADHA KOHLI DO Ot 719.45 JOINT PAIN-PELVIS 09/28/2016 URIEL AGUILAR, ANDREW [place] Ot V72.84 EXAM PRE-OPERATIVE NOS 09/28/2016 RADHA KOHLI DO Ot 733.90 BONE CARTILAGE DIS NOS 09/28/2016 TWILA MARIE MD Ot I10 ESSENTIAL (PRIMARY) HYPERTENSION 09/28/2016 FRANK AGUILAR, TWILA [place] Ot J44.9 CHRONIC OBSTRUCTIVE PULMONARY DISEASE, U 09/28/2016 RADHA KOHLI DO Ot K85.9 ACUTE PANCREATITIS, UNSPECIFIED 09/28/2016 RADHA KOHLI DO Ot M79.89 OTHER SPECIFIED SOFT TISSUE DISORDERS 09/28/2016 MESHA EWING MD, Ot K21.0 GASTRO-ESOPHAGEAL REFLUX DISEASE WITH ES 09/28/2016 MESHA EWING MD, Ot K29.70 GASTRITIS, UNSPECIFIED, WITHOUT BLEEDING 09/28/2016 MESHA EWING MD, Ot K44.9 DIAPHRAGMATIC HERNIA WITHOUT OBSTRUCTION 09/28/2016 MESHA EWING MD, Ot K63.9 DISEASE OF INTESTINE, UNSPECIFIED 09/28/2016 MESHA EWING MD, Ot K64.1 SECOND DEGREE HEMORRHOIDS 09/28/2016 MESHA EWING MD, Ot Z80.0 FAMILY HISTORY OF MALIGNANT NEOPLASM OF 09/28/2016 MESHA EWING MD, Ot Z86.010 PERSONAL HISTORY OF COLONIC POLYPS 09/28/2016 TERESITA SEN Ot C18.2 MALIGNANT NEOPLASM OF ASCENDING COLON 09/28/2016 RADHA KOHLI DO Ot R05 COUGH 09/28/2016 SHOBHA FIORE [employer] DIRECTOR Ot C18.2 MALIGNANT NEOPLASM OF ASCENDING COLON 09/28/2016 SHOBHA FIORE [employer] DIRECTOR Ot C18.2 MALIGNANT NEOPLASM OF ASCENDING COLON 09/28/2016 SHOBHA FIORE SUBSTANCE ABUSE SERVICES DIRECTOR Ot R91.8 OTHER NONSPECIFIC ABNORMAL FINDING OF [place] 11/23/2016 TERESITA SEN Ot C18.2 MALIGNANT NEOPLASM OF ASCENDING COLON 11/23/2016 TERESITA SEN Ot D64.9 ANEMIA, UNSPECIFIED 11/23/2016 TERESITA SEN Ot F17.210 NICOTINE DEPENDENCE, CIGARETTES, UNCOMPL 11/23/2016 TERESITA SEN Ot Z45.2 ENCOUNTER FOR ADJUSTMENT AND MANAGEMENT 11/23/2016 MCKINLEYTERESITA N Ot Z79.899 OTHER PINION AND WHEEL TRUER (CURRENT) DRUG THERAPY 12/14/2016 MCKINLEYTERESITA N Ot C18.2 MALIGNANT NEOPLASM OF ASCENDING COLON 12/14/2016 MCKINLEYTERESITA N Ot D64.9 ANEMIA, UNSPECIFIED 12/14/2016 MCKINLEY BOBJOSE N Ot F17.210 NICOTINE DEPENDENCE, CIGARETTES, UNCOMPL 12/14/2016 MCKINLEYTERESITA N Ot Z45.2 ENCOUNTER FOR ADJUSTMENT AND MANAGEMENT 12/14/2016 MCKINLEYTERESITA N Ot Z79.899 OTHER PINION AND WHEEL TRUER (CURRENT) DRUG THERAPY 01/23/2017 MCKINLEY BOBJOSE N Ot C18.2 MALIGNANT NEOPLASM OF ASCENDING COLON 01/23/2017 MCKINLEY BOBAN N Ot D64.9 ANEMIA, UNSPECIFIED 01/23/2017 MCKINLEY, BOBAN N Ot F17.210 NICOTINE DEPENDENCE, CIGARETTES, UNCOMPL 01/23/2017 MCKINLEY BOBJOSE N Ot Z45.2 ENCOUNTER FOR ADJUSTMENT AND MANAGEMENT 01/23/2017 MCKINLEY BOBJOSE N Ot Z79.899 OTHER PRISON (CURRENT) DRUG THERAPY 01/24/2017 MCKINLEY BOBJOSE N Ot C18.2 MALIGNANT NEOPLASM OF ASCENDING COLON 01/24/2017 MCKINLEY BOBAN N Ot D64.9 ANEMIA, UNSPECIFIED 01/24/2017 MCKINLEY, BOBJOSE N Ot F17.210 NICOTINE DEPENDENCE, CIGARETTES, UNCOMPL 01/24/2017 MCKINLEY BOBJOSE N Ot Z45.2 ENCOUNTER FOR ADJUSTMENT AND MANAGEMENT 01/24/2017 MCKINLEY BOBJOSE N Ot Z79.899 OTHER PINION AND WHEEL TRUER (CURRENT) DRUG THERAPY 01/27/2017 URIEL AGUILAR, ANRDEW [place] Ot Z01.818 ENCOUNTER FOR OTHER PREPROCEDURAL EXAMIN 01/27/2017 URIEL AGUILAR, ANDREW [place] Ot Z85.038 PERSONAL HISTORY OF MALIGNANT NEOPLASM O 01/27/2017 MCKINLEY BOBJOSE N Ot C18.2 MALIGNANT NEOPLASM OF ASCENDING COLON 01/27/2017 MCKINLEY, BOBAN N Ot D64.9 ANEMIA, UNSPECIFIED 01/27/2017 MCKINLEY, BOBAN N Ot F17.210 NICOTINE DEPENDENCE, CIGARETTES, UNCOMPL 01/27/2017 MCKINLEY BOBAN N Ot Z45.2 ENCOUNTER FOR ADJUSTMENT AND MANAGEMENT 01/27/2017 MCKINLEY BOBAN N Ot Z79.899 OTHER PRISON (CURRENT) DRUG THERAPY 01/27/2017 URIEL AGUILAR, ANDREW [place] Ot Z01.818 ENCOUNTER FOR OTHER PREPROCEDURAL EXAMIN 01/27/2017 ANDREW TREVINO MD Ot Z85.038 PERSONAL HISTORY OF MALIGNANT NEOPLASM O 01/27/2017 ANDREW TREVINO MD Ot Z01.818 ENCOUNTER FOR OTHER PREPROCEDURAL EXAMIN 01/27/2017 ANDREW TREVINO MD Ot Z85.038 PERSONAL HISTORY OF MALIGNANT NEOPLASM O 01/31/2017 URIEL AGUILAR, ANDREW [place] Ot 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 01/31/2017 ANDREW TREVINO MD Ot D12.8 BENIGN NEOPLASM OF RECTUM 01/31/2017 URIEL AGUILAR, ANDREW [place] Ot E78.00 PURE HYPERCHOLESTEROLEMIA, UNSPECIFIED 01/31/2017 ANDREW TREVINO MD Ot F17.210 NICOTINE DEPENDENCE, CIGARETTES, UNCOMPL 01/31/2017 ANDREW TREVINO MD Ot I10 ESSENTIAL (PRIMARY) HYPERTENSION 01/31/2017 ANDREW TREVINO MD Ot K21.9 GASTRO-ESOPHAGEAL REFLUX DISEASE WITHOUT 01/31/2017 ANDREW TREVINO MD Ot M19.91 PRIMARY OSTEOARTHRITIS, UNSPECIFIED SITE 01/31/2017 ANDREW TREVINO MD Ot Z08 ENCNTR FOR FOLLOW-UP EXAM AFTER TRTMT FO 01/31/2017 ANDREW TREVINO MD Ot Z79.899 OTHER PRISON (CURRENT) DRUG THERAPY 01/31/2017 ANDREW TREVINO MD Ot Z98.0 INTESTINAL BYPASS AND ANASTOMOSIS STATUS 02/19/2017 TERESITA SEN Ot C18.2 MALIGNANT NEOPLASM OF ASCENDING COLON 02/19/2017 TERESITA SEN Ot D64.9 ANEMIA, UNSPECIFIED 02/19/2017 TERESITA SEN Ot F17.210 NICOTINE DEPENDENCE, CIGARETTES, UNCOMPL 02/19/2017 TERESITA SEN Ot Z45.2 ENCOUNTER FOR ADJUSTMENT AND MANAGEMENT 02/19/2017 TERESITA SEN Ot Z79.899 OTHER PRISON (CURRENT) DRUG THERAPY 03/11/2017 RADHA KOHLI DO Ot 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 03/11/2017 TERESITA SEN Ot C18.2 MALIGNANT NEOPLASM OF ASCENDING COLON 03/11/2017 TERESITA SEN Ot D64.9 ANEMIA, UNSPECIFIED 03/11/2017 TERESITA SEN Ot F17.210 NICOTINE DEPENDENCE, CIGARETTES, UNCOMPL 03/11/2017 TERESITA SEN Ot Z45.2 ENCOUNTER FOR ADJUSTMENT AND MANAGEMENT 03/11/2017 TERESITA SEN Ot Z79.899 OTHER PINION AND WHEEL TRUER (CURRENT) DRUG THERAPY 03/16/2017 RADHA KOHLI DO S Ot 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 03/16/2017 FIORESHOBHA Pickard S SUBSTANCE ABUSE SERVICES DIRECTOR Ot C18.2 MALIGNANT NEOPLASM OF ASCENDING COLON 03/16/2017 SHOBHA FIORE S SUBSTANCE ABUSE SERVICES DIRECTOR Ot M47.816 SPONDYLOSIS W/O MYELOPATHY OR RADICULOPA 03/16/2017 SHOBHA FIORE S SUBSTANCE ABUSE SERVICES DIRECTOR Ot N28.1 CYST OF KIDNEY, ACQUIRED 03/16/2017 SHOBHA FIORE S SUBSTANCE ABUSE SERVICES DIRECTOR Ot R59.0 LOCALIZED ENLARGED LYMPH NODES 03/16/2017 SHOBHA FIORE S SUBSTANCE ABUSE SERVICES DIRECTOR Ot R91.8 OTHER NONSPECIFIC ABNORMAL FINDING OF [place] 03/19/2017 TERESITA SEN N Ot C18.2 MALIGNANT NEOPLASM OF ASCENDING COLON 03/19/2017 TERESITA SEN Ot D64.9 ANEMIA, UNSPECIFIED 03/19/2017 TERESITA SEN Ot F17.210 NICOTINE DEPENDENCE, CIGARETTES, UNCOMPL 03/19/2017 TERESITA SEN Ot Z45.2 ENCOUNTER FOR ADJUSTMENT AND MANAGEMENT 03/19/2017 TERESITA SEN Ot Z79.899 OTHER PRISON (CURRENT) DRUG THERAPY 03/31/2017 RADHA KOHLI DO S Ot 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 04/01/2017 SHOBHA FIORE S SUBSTANCE ABUSE SERVICES DIRECTOR Ot C18.2 MALIGNANT NEOPLASM OF ASCENDING COLON 04/01/2017 SHOBHA FIORE S SUBSTANCE ABUSE SERVICES DIRECTOR Ot M47.816 SPONDYLOSIS W/O MYELOPATHY OR RADICULOPA 04/01/2017 SHOBHA FIORE S SUBSTANCE ABUSE SERVICES DIRECTOR Ot N28.1 CYST OF KIDNEY, ACQUIRED 04/01/2017 SHOBHA FIORE S SUBSTANCE ABUSE SERVICES DIRECTOR Ot R59.0 LOCALIZED ENLARGED LYMPH NODES 04/01/2017 SHOBHA FIORE S SUBSTANCE ABUSE SERVICES DIRECTOR Ot R91.8 OTHER NONSPECIFIC ABNORMAL FINDING OF [place] 05/27/2017 TERESITA SEN N Ot C18.2 MALIGNANT NEOPLASM OF ASCENDING COLON 05/27/2017 MCKINLEYTERESITA N Ot D64.9 ANEMIA, UNSPECIFIED 05/27/2017 MCKINLEYTERESITA N Ot F17.210 NICOTINE DEPENDENCE, CIGARETTES, UNCOMPL 05/27/2017 MCKINLEYHEAN N Ot M47.816 SPONDYLOSIS W/O MYELOPATHY OR RADICULOPA 05/27/2017 MCKINLEYTERESITA KELLEY N Ot N28.1 CYST OF KIDNEY, ACQUIRED 05/27/2017 MCKINLEYTERESITA N Ot R59.0 LOCALIZED ENLARGED LYMPH NODES 05/27/2017 MCKINLEYTERESITA N Ot R91.8 OTHER NONSPECIFIC ABNORMAL FINDING OF [place] 05/27/2017 MCKINLEYTERESITA KELLEY N Ot Z79.899 OTHER PRISON (CURRENT) DRUG THERAPY 07/12/2017 TERESITA SEN N Ot C18.2 MALIGNANT NEOPLASM OF ASCENDING COLON 07/12/2017 MCKINLEYTERESITA KELLEY N Ot D64.9 ANEMIA, UNSPECIFIED 07/12/2017 MCKINLEYTERESITA N Ot F17.210 NICOTINE DEPENDENCE, CIGARETTES, UNCOMPL 07/12/2017 MCKINLEYTERESITA N Ot M47.816 SPONDYLOSIS W/O MYELOPATHY OR RADICULOPA 07/12/2017 MCKINLEYTERESITA N Ot N28.1 CYST OF KIDNEY, ACQUIRED 07/12/2017 MCKINLEY BOBAN N Ot R59.0 LOCALIZED ENLARGED LYMPH NODES 07/12/2017 MCKINLEY BOBAN N Ot R91.8 OTHER NONSPECIFIC ABNORMAL FINDING OF [place] 07/12/2017 TERESITA SEN N Ot Z79.899 OTHER PINION AND WHEEL TRUER (CURRENT) DRUG THERAPY 08/04/2017 TERESITA SEN N Ot C18.2 MALIGNANT NEOPLASM OF ASCENDING COLON 08/04/2017 MCKINLEYTERESITA N Ot D64.9 ANEMIA, UNSPECIFIED 08/04/2017 MCKINLEYTERESITA N Ot F17.210 NICOTINE DEPENDENCE, CIGARETTES, UNCOMPL 08/04/2017 MCKINLEY BOBAN N Ot M47.816 SPONDYLOSIS W/O MYELOPATHY OR RADICULOPA 08/04/2017 MCKINLEY BOBAN N Ot N28.1 CYST OF KIDNEY, ACQUIRED 08/04/2017 MCKINLEYHEAN N Ot R59.0 LOCALIZED ENLARGED LYMPH NODES 08/04/2017 MCKINLEY BOBAN N Ot R91.8 OTHER NONSPECIFIC ABNORMAL FINDING OF [place] 08/04/2017 TERESITA SEN N Ot Z79.899 OTHER PRISON (CURRENT) DRUG THERAPY 08/22/2017 TERESITA SEN N Ot C18.2 MALIGNANT NEOPLASM OF ASCENDING COLON 08/22/2017 MCKINLEY BOBJOSE N Ot R91.8 OTHER NONSPECIFIC ABNORMAL FINDING OF [place] 08/24/2017 TERESITA SEN N Ot C18.2 MALIGNANT NEOPLASM OF ASCENDING COLON 08/24/2017 TERESITA SEN N Ot D64.9 ANEMIA, UNSPECIFIED 08/24/2017 MCKINLEYTERESITA N Ot F17.210 NICOTINE DEPENDENCE, CIGARETTES, UNCOMPL 08/24/2017 MCKINLEY, BOBAN N Ot M47.816 SPONDYLOSIS W/O MYELOPATHY OR RADICULOPA 08/24/2017 MCKINLEYTERESITA KELLEY N Ot N28.1 CYST OF KIDNEY, ACQUIRED 08/24/2017 MCKINLEYTERESITA N Ot R59.0 LOCALIZED ENLARGED LYMPH NODES 08/24/2017 MCKINLEYTERESITA N Ot R91.8 OTHER NONSPECIFIC ABNORMAL FINDING OF [place] 08/24/2017 TERESITA SEN N Ot Z79.899 OTHER PRISON (CURRENT) DRUG THERAPY 08/25/2017 MCKINLEYTERESITA KELLEY N Ot C18.2 MALIGNANT NEOPLASM OF ASCENDING COLON 08/25/2017 TERESITA SEN N Ot D64.9 ANEMIA, UNSPECIFIED 08/25/2017 MCKINLEYTERESITA KELLEY N Ot F17.210 NICOTINE DEPENDENCE, CIGARETTES, UNCOMPL 08/25/2017 MCKINLEYTERESITA KELLEY N Ot M47.816 SPONDYLOSIS W/O MYELOPATHY OR RADICULOPA 08/25/2017 MCKINLEYTERESITA KELLEY N Ot N28.1 CYST OF KIDNEY, ACQUIRED 08/25/2017 MCKINLEYTERESITA N Ot R59.0 LOCALIZED ENLARGED LYMPH NODES 08/25/2017 MCKINLEY BOBAN N Ot R91.8 OTHER NONSPECIFIC ABNORMAL FINDING OF [place] 08/25/2017 MCKINLEYTERESITA KELLEY N Ot Z79.899 OTHER PRISON (CURRENT) DRUG THERAPY 09/07/2017 TERESITA SEN N Ot C18.2 MALIGNANT NEOPLASM OF ASCENDING COLON 09/07/2017 MCKINLEYHEAN N Ot R91.8 OTHER NONSPECIFIC ABNORMAL FINDING OF [place] 09/29/2017 MCKINLEYTERESITA KELLEY N Ot C18.2 MALIGNANT NEOPLASM OF ASCENDING COLON 09/29/2017 HE SENAN N Ot D64.9 ANEMIA, UNSPECIFIED 09/29/2017 MCKINLEY, BOBAN N Ot F17.210 NICOTINE DEPENDENCE, CIGARETTES, UNCOMPL 09/29/2017 MCKINLEY, BOBAN N Ot M47.816 SPONDYLOSIS W/O MYELOPATHY OR RADICULOPA 09/29/2017 MCKINLEYHEAN N Ot N28.1 CYST OF KIDNEY, ACQUIRED 09/29/2017 MCKINLEYTERESITA N Ot R59.0 LOCALIZED ENLARGED LYMPH NODES 09/29/2017 MCKINLEY BOBAN N Ot R91.8 OTHER NONSPECIFIC ABNORMAL FINDING OF [place] 09/29/2017 MCKINLEYHE KELLEYAN N Ot Z79.899 OTHER PINION AND WHEEL TRUER (CURRENT) DRUG THERAPY 10/17/2017 MCKINLEY, BOBJOSE N Ot C18.2 MALIGNANT NEOPLASM OF ASCENDING COLON 10/17/2017 MCKINLEY BOBAN N Ot D64.9 ANEMIA, UNSPECIFIED 10/17/2017 MCKINLEY BOBAN N Ot F17.210 NICOTINE DEPENDENCE, CIGARETTES, UNCOMPL 10/17/2017 MCKINLEY BOBJOSE N Ot M47.816 SPONDYLOSIS W/O MYELOPATHY OR RADICULOPA 10/17/2017 MCKINLEYHEAN N Ot N28.1 CYST OF KIDNEY, ACQUIRED 10/17/2017 MCKINLEY BOBAN N Ot R59.0 LOCALIZED ENLARGED LYMPH NODES 10/17/2017 MCKINLEY BOBAN N Ot R91.8 OTHER NONSPECIFIC ABNORMAL FINDING OF [place] 10/17/2017 MCKINLEYTERESITA KELLEY N Ot Z79.899 OTHER PRISON (CURRENT) DRUG THERAPY 11/23/2017 MCKINLEYTERESITA KELLEY N Ot C18.2 MALIGNANT NEOPLASM OF ASCENDING COLON 11/23/2017 MCKINLEYTERESITA N Ot D64.9 ANEMIA, UNSPECIFIED 11/23/2017 MCKINLEY BOBAN N Ot F17.210 NICOTINE DEPENDENCE, CIGARETTES, UNCOMPL 11/23/2017 MCKINLEY BOBAN N Ot M47.816 SPONDYLOSIS W/O MYELOPATHY OR RADICULOPA 11/23/2017 MCKINLEY BOBAN N Ot N28.1 CYST OF KIDNEY, ACQUIRED 11/23/2017 MCKINLEY BOBAN N Ot R59.0 LOCALIZED ENLARGED LYMPH NODES 11/23/2017 MCKINLEY BOBAN N Ot R91.8 OTHER NONSPECIFIC ABNORMAL FINDING OF [place] 11/23/2017 MCKINLEY, BOBAN N Ot Z79.899 OTHER PINION AND WHEEL TRUER (CURRENT) DRUG THERAPY 11/24/2017 MCKINLEY, BOBAN N Ot C18.2 MALIGNANT NEOPLASM OF ASCENDING COLON 11/24/2017 MCKINLEY, BOBAN N Ot D64.9 ANEMIA, UNSPECIFIED 11/24/2017 MCKINLEY, BOBAN N Ot F17.210 NICOTINE DEPENDENCE, CIGARETTES, UNCOMPL 11/24/2017 MCKINLEY, BOBAN N Ot M47.816 SPONDYLOSIS W/O MYELOPATHY OR RADICULOPA 11/24/2017 MCKINLEY BOBAN N Ot N28.1 CYST OF KIDNEY, ACQUIRED 11/24/2017 MCKINLEY, BOBAN N Ot R59.0 LOCALIZED ENLARGED LYMPH NODES 11/24/2017 MCKINLEY, BOBAN N Ot R91.8 OTHER NONSPECIFIC ABNORMAL FINDING OF [place] 11/24/2017 MCKINLEYHE KELLEYAN N Ot Z79.899 OTHER PINION AND WHEEL TRUER (CURRENT) DRUG THERAPY 11/30/2017 MCKINLEY, BOBAN N Ot C18.2 MALIGNANT NEOPLASM OF ASCENDING COLON 11/30/2017 MCKINLEY, BOBAN N Ot D64.9 ANEMIA, UNSPECIFIED 11/30/2017 MCKINLEY, BOBAN N Ot F17.210 NICOTINE DEPENDENCE, CIGARETTES, UNCOMPL 11/30/2017 MCKINLEY, BOBAN N Ot M47.816 SPONDYLOSIS W/O MYELOPATHY OR RADICULOPA 11/30/2017 MCKINLEY, BOBAN N Ot N28.1 CYST OF KIDNEY, ACQUIRED 11/30/2017 MCKINLEY, BOBAN N Ot R59.0 LOCALIZED ENLARGED LYMPH NODES 11/30/2017 MCKINLEY BOBAN N Ot R91.8 OTHER NONSPECIFIC ABNORMAL FINDING OF [place] 11/30/2017 MCKINLEYHEAN N Ot Z79.899 OTHER PRISON (CURRENT) DRUG THERAPY 01/09/2018 MCKINLEYHEAN N Ot C18.2 MALIGNANT NEOPLASM OF ASCENDING COLON 01/09/2018 MCKINLEY, BOBAN N Ot D64.9 ANEMIA, UNSPECIFIED 01/09/2018 MCKINLEY, BOBAN N Ot F17.210 NICOTINE DEPENDENCE, CIGARETTES, UNCOMPL 01/09/2018 MCKILNEY, BOBAN N Ot M47.816 SPONDYLOSIS W/O MYELOPATHY OR RADICULOPA 01/09/2018 MCKINLEY, BOBAN N Ot N28.1 CYST OF KIDNEY, ACQUIRED 01/09/2018 MCKINLEY, BOBAN N Ot R59.0 LOCALIZED ENLARGED LYMPH NODES 01/09/2018 TERESITA SEN Ot R91.8 OTHER NONSPECIFIC ABNORMAL FINDING OF [place] 01/09/2018 TERESITA SEN Ot Z79.899 OTHER PINION AND WHEEL TRUER (CURRENT) DRUG THERAPY 02/14/2018 TERESITA SEN Ot C18.2 MALIGNANT NEOPLASM OF ASCENDING COLON 02/14/2018 TERESITA SEN Ot D64.9 ANEMIA, UNSPECIFIED 02/14/2018 TERESITA SEN Ot F17.210 NICOTINE DEPENDENCE, CIGARETTES, UNCOMPL 02/14/2018 TERESITA SEN Ot M47.816 SPONDYLOSIS W/O MYELOPATHY OR RADICULOPA 02/14/2018 TERESITA SEN Ot N28.1 CYST OF KIDNEY, ACQUIRED 02/14/2018 TERESITA SEN Ot R59.0 LOCALIZED ENLARGED LYMPH NODES 02/14/2018 TERESITA SEN Ot R91.8 OTHER NONSPECIFIC ABNORMAL FINDING OF [place] 02/14/2018 TERESITA SEN Ot Z79.899 OTHER PRISON (CURRENT) DRUG THERAPY 02/17/2018 RADHA KOHLI DO S Ot 719.45 JOINT PAIN-PELVIS 02/17/2018 URIEL AGUILAR, ANDREW [place] Ot V72.84 EXAM PRE-OPERATIVE NOS 02/17/2018 RADHA KOHLI DO S Ot 733.90 BONE CARTILAGE DIS NOS 02/17/2018 FRANK AGUILAR, TWILA [place] Ot I10 ESSENTIAL (PRIMARY) HYPERTENSION 02/17/2018 FRANK AGUILAR, TWILA [place] Ot J44.9 CHRONIC OBSTRUCTIVE PULMONARY DISEASE, U 02/17/2018 RADHA KOHLI DO S Ot K85.9 ACUTE PANCREATITIS, UNSPECIFIED 02/17/2018 RADHA KOHLI DO S Ot M79.89 OTHER SPECIFIED SOFT TISSUE DISORDERS 02/17/2018 MESHA EWING MD Ot K21.0 GASTRO-ESOPHAGEAL REFLUX DISEASE WITH ES 02/17/2018 MESHA EWING MD, Ot K29.70 GASTRITIS, UNSPECIFIED, WITHOUT BLEEDING 02/17/2018 MESHA EWING MD, Ot K44.9 DIAPHRAGMATIC HERNIA WITHOUT OBSTRUCTION 02/17/2018 MESHA EWING MD, Ot K63.9 DISEASE OF INTESTINE, UNSPECIFIED 02/17/2018 KIDO MD, TAKAAKI Ot K64.1 SECOND DEGREE HEMORRHOIDS 02/17/2018 MESHA EWING MD Ot Z80.0 FAMILY HISTORY OF MALIGNANT NEOPLASM OF 02/17/2018 MESHA EWING MD Ot Z86.010 PERSONAL HISTORY OF COLONIC POLYPS 02/17/2018 HE SENJOSE N Ot C18.2 MALIGNANT NEOPLASM OF ASCENDING COLON 02/17/2018 JANICE RADHA S Ot R05 COUGH 02/17/2018 SHOBHA FIORE S SUBSTANCE ABUSE SERVICES DIRECTOR Ot C18.2 MALIGNANT NEOPLASM OF ASCENDING COLON 02/17/2018 FIORE, HILAH S SUBSTANCE ABUSE SERVICES DIRECTOR Ot C18.2 MALIGNANT NEOPLASM OF ASCENDING COLON 02/17/2018 FIORESHOBHA Pickard S SUBSTANCE ABUSE SERVICES DIRECTOR Ot R91.8 OTHER NONSPECIFIC ABNORMAL FINDING OF [place] 02/17/2018 SHOBHA FIORE S SUBSTANCE ABUSE SERVICES DIRECTOR Ot C18.2 MALIGNANT NEOPLASM OF ASCENDING COLON 02/17/2018 SHOBHA FIORE S SUBSTANCE ABUSE SERVICES DIRECTOR Ot M47.816 SPONDYLOSIS W/O MYELOPATHY OR RADICULOPA 02/17/2018 SHOBHA FIORE S SUBSTANCE ABUSE SERVICES DIRECTOR Ot N28.1 CYST OF KIDNEY, ACQUIRED 02/17/2018 SHOBHA FIORE S SUBSTANCE ABUSE SERVICES DIRECTOR Ot R59.0 LOCALIZED ENLARGED LYMPH NODES 02/17/2018 FIORESHOBHA Pickard S SUBSTANCE ABUSE SERVICES DIRECTOR Ot R91.8 OTHER NONSPECIFIC ABNORMAL FINDING OF [place] 02/17/2018 RADHA KOHLI DO S Ot 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 02/17/2018 MCKINLEYHEAN N Ot C18.2 MALIGNANT NEOPLASM OF ASCENDING COLON 02/17/2018 MCKINLEYHEAN N Ot R91.8 OTHER NONSPECIFIC ABNORMAL FINDING OF [place] 02/24/2018 MCKINLEY, BOBAN N Ot C18.2 MALIGNANT NEOPLASM OF ASCENDING COLON 02/24/2018 MCKINLEY, BOBAN N Ot R91.8 OTHER NONSPECIFIC ABNORMAL FINDING OF [place] 03/01/2018 MCKINLEY, BOBAN N Ot C18.2 MALIGNANT NEOPLASM OF ASCENDING COLON 03/01/2018 MCKINLEY, BOBAN N Ot 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 03/01/2018 MCKINLEY, BOBAN N Ot C18.2 MALIGNANT NEOPLASM OF ASCENDING COLON 03/01/2018 MCKINLEY, BOBAN N Ot 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 03/06/2018 MCKINLEY, BOBAN N Ot C18.2 MALIGNANT NEOPLASM OF ASCENDING COLON 03/06/2018 MCKINLEY, BOBAN N Ot 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 03/15/2018 TERESITA SEN N Ot C18.2 MALIGNANT NEOPLASM OF ASCENDING COLON 03/15/2018 TERESITA SEN Ot R91.8 OTHER NONSPECIFIC ABNORMAL FINDING OF [place] 03/19/2018 RODRIGO VILLARREAL MD Ot C18.2 MALIGNANT NEOPLASM OF ASCENDING COLON 03/19/2018 RODRIGO VILLARREAL MD Ot D64.9 ANEMIA, UNSPECIFIED 03/19/2018 RODRIGO VILLARREAL MD Ot F17.210 NICOTINE DEPENDENCE, CIGARETTES, UNCOMPL 03/19/2018 RODRIGO VILLARREAL MD Ot M47.816 SPONDYLOSIS W/O MYELOPATHY OR RADICULOPA 03/19/2018 RODRIGO VILLARREAL MD Ot N28.1 CYST OF KIDNEY, ACQUIRED 03/19/2018 RODRIGO VILLARREAL MD Ot R59.0 LOCALIZED ENLARGED LYMPH NODES 03/19/2018 RODRIGO VILLARREAL MD Ot R91.8 OTHER NONSPECIFIC ABNORMAL FINDING OF [place] 03/19/2018 RODRIGO VILLARREAL MD Ot Z79.899 OTHER PRISON (CURRENT) DRUG THERAPY 03/21/2018 RODRIGO VILLARREAL MD Ot C18.2 MALIGNANT NEOPLASM OF ASCENDING COLON 03/21/2018 RODRIGO VILLARREAL MD Ot D64.9 ANEMIA, UNSPECIFIED 03/21/2018 RODRIGO VILLARREAL MD Ot F17.210 NICOTINE DEPENDENCE, CIGARETTES, UNCOMPL 03/21/2018 RODRIGO VILLARREAL MD Ot M47.816 SPONDYLOSIS W/O MYELOPATHY OR RADICULOPA 03/21/2018 RODRIGO VILLARREAL MD Ot N28.1 CYST OF KIDNEY, ACQUIRED 03/21/2018 RODRIGO VILLARREAL MD Ot R59.0 LOCALIZED ENLARGED LYMPH NODES 03/21/2018 RODRIGO VILLARREAL MD Ot R91.8 OTHER NONSPECIFIC ABNORMAL FINDING OF [place] 03/21/2018 RODRIGO VILLARREAL MD Ot Z79.899 OTHER PRISON (CURRENT) DRUG THERAPY 03/25/2018 RODRIGO VILLARREAL MD Ot C18.2 MALIGNANT NEOPLASM OF ASCENDING COLON 03/25/2018 RODRIGO VILLARREAL MD Ot D64.9 ANEMIA, UNSPECIFIED 03/25/2018 RODRIGO VILLARREAL MD Ot F17.210 NICOTINE DEPENDENCE, CIGARETTES, UNCOMPL 03/25/2018 RODRIGO VILLARREAL MD Ot M47.816 SPONDYLOSIS W/O MYELOPATHY OR RADICULOPA 03/25/2018 RODRIGO VILLARREAL MD Ot N28.1 CYST OF KIDNEY, ACQUIRED 03/25/2018 RODRIGO VILLARREAL MD Ot R59.0 LOCALIZED ENLARGED LYMPH NODES 03/25/2018 RODRIGO VILLARREAL MD Ot R91.8 OTHER NONSPECIFIC ABNORMAL FINDING OF [place] 03/25/2018 RODRIGO VILLARREAL MD Ot Z79.899 OTHER PINION AND WHEEL TRUER (CURRENT) DRUG THERAPY 04/06/2018 MCKINLEY HEJOSE Joanna Ot C18.2 MALIGNANT NEOPLASM OF ASCENDING COLON 04/06/2018 MCKINLEY, HEJOSE Joanna Ot R91.8 OTHER NONSPECIFIC ABNORMAL FINDING OF [place] 04/12/2018 MCKINLEY HEJOSE Joanna Ot C18.2 MALIGNANT NEOPLASM OF ASCENDING COLON 04/12/2018 MCKINLEY, HEJOSE Joanna Ot 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 05/18/2018 RADHA KOHLI DO S Ot 719.45 JOINT PAIN-PELVIS 05/18/2018 URIEL AGUILAR, ANDREW [place] Ot V72.84 EXAM PRE-OPERATIVE NOS 05/18/2018 RADHA KOHLI DO Ot 733.90 BONE CARTILAGE DIS NOS 05/18/2018 MESHA EWING MD Ot K21.0 GASTRO-ESOPHAGEAL REFLUX DISEASE WITH ES 05/18/2018 MESHA EWING MD Ot K29.70 GASTRITIS, UNSPECIFIED, WITHOUT BLEEDING 05/18/2018 MESHA EWING MD Ot K44.9 DIAPHRAGMATIC HERNIA WITHOUT OBSTRUCTION 05/18/2018 MESHA EWING MD Ot K63.9 DISEASE OF INTESTINE, UNSPECIFIED 05/18/2018 MESHA EWING MD Ot K64.1 SECOND DEGREE HEMORRHOIDS 05/18/2018 MESHA EWING MD Ot Z80.0 FAMILY HISTORY OF MALIGNANT NEOPLASM OF 05/18/2018 MESHA EWING MD Ot Z86.010 PERSONAL HISTORY OF COLONIC POLYPS 05/18/2018 TERESITA SEN Ot C18.2 MALIGNANT NEOPLASM OF ASCENDING COLON 05/18/2018 RADHA KOHLI DO Ot R05 COUGH 05/18/2018 SHOBHA FIORE SUBSTANCE ABUSE SERVICES DIRECTOR Ot C18.2 MALIGNANT NEOPLASM OF ASCENDING COLON 05/18/2018 SHOBHA FIORE SUBSTANCE ABU[employer] SERVICES DIRECTOR Ot C18.2 MALIGNANT NEOPLASM OF ASCENDING COLON 05/18/2018 SHOBHA FIORE [employer]BU[employer] SERVICES DIRECTOR Ot R91.8 OTHER NONSPECIFIC ABNORMAL FINDING OF [place] 05/18/2018 SHOBHA FIORE [employer]BU[employer] SERVICES DIRECTOR Ot C18.2 MALIGNANT NEOPLASM OF ASCENDING COLON 05/18/2018 SHOBHA FIORE [employer]BU[employer] SERVICES DIRECTOR Ot M47.816 SPONDYLOSIS W/O MYELOPATHY OR RADICULOPA 05/18/2018 SHOBHA FIORE [employer]BU[employer] SERVICES DIRECTOR Ot N28.1 CYST OF KIDNEY, ACQUIRED 05/18/2018 SHOBHA FIORE [employer]BU[employer] SERVICES DIRECTOR Ot R59.0 LOCALIZED ENLARGED LYMPH NODES 05/18/2018 SHOBHA FIORE [employer]BU[employer] SERVICES DIRECTOR Ot R91.8 OTHER NONSPECIFIC ABNORMAL FINDING OF [place] 05/18/2018 JANICE DO RADHA S Ot 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 05/18/2018 MCKINLEYTERESITA KELLEY N Ot C18.2 MALIGNANT NEOPLASM OF ASCENDING COLON 05/18/2018 MCKINLEYTERESITA KELLEY N Ot R91.8 OTHER NONSPECIFIC ABNORMAL FINDING OF K[place] 05/18/2018 MCKINLEYTERESITA KELLEY N Ot C18.2 MALIGNANT NEOPLASM OF ASCENDING COLON 05/18/2018 MCKINLEY TERESITA N Ot R91.8 OTHER NONSPECIFIC ABNORMAL FINDING OF KING 05/18/2018 MCKINLEYTERESITA KELLEY N Ot C18.2 MALIGNANT NEOPLASM OF ASCENDING COLON 05/18/2018 MCKINLEYTERESITA KELLEY N Ot 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 05/18/2018 FLORENCE KOHLI DOQUELINE S Ot 719.45 JOINT PAIN-PELVIS 05/18/2018 URIEL AGUILAR, ANDREW [place] Ot V72.84 EXAM PRE-OPERATIVE NOS 05/18/2018 OMAR KOHLI DOLINE S Ot 733.90 BONE CARTILAGE DIS NOS 05/18/2018 FRANK AGUILAR, TWILA [place] Ot I10 ESSENTIAL (PRIMARY) HYPERTENSION 05/18/2018 TWILA MARIE MD Ot J44.9 CHRONIC OBSTRUCTIVE PULMONARY DISEASE, U 05/18/2018 OMAR KOHLI DOLINE S Ot K85.9 ACUTE PANCREATITIS, UNSPECIFIED 05/18/2018 OMAR KOHLI DOLINE S Ot M79.89 OTHER SPECIFIED SOFT TISSUE DISORDERS 05/18/2018 MESHA EWING MD Ot K21.0 GASTRO-ESOPHAGEAL REFLUX DISEASE WITH ES 05/18/2018 MESHA EWING MD Ot K29.70 GASTRITIS, UNSPECIFIED, WITHOUT BLEEDING 05/18/2018 MESHA EWING MD Ot K44.9 DIAPHRAGMATIC HERNIA WITHOUT OBSTRUCTION 05/18/2018 MESHA EWING MD Ot K63.9 DISEASE OF INTESTINE, UNSPECIFIED 05/18/2018 MESHA EWING MD Ot K64.1 SECOND DEGREE HEMORRHOIDS 05/18/2018 MESHA EWING MD Ot Z80.0 FAMILY HISTORY OF MALIGNANT NEOPLASM OF 05/18/2018 MESHA EWING MD Ot Z86.010 PERSONAL HISTORY OF COLONIC POLYPS 05/18/2018 TERESITA SEN N Ot C18.2 MALIGNANT NEOPLASM OF ASCENDING COLON 05/18/2018 RADHA KOHLI DO S Ot R05 COUGH 05/18/2018 SHOBHA FIORE S [employer] ABUSE SERVICES DIRECTOR Ot C18.2 MALIGNANT NEOPLASM OF ASCENDING COLON 05/18/2018 FIORE, HILAH S SUB[employer]ANCE ABUSE SERVICES DIRECTOR Ot C18.2 MALIGNANT NEOPLASM OF ASCENDING COLON 05/18/2018 SHOBHA FIORE S [employer]ANCE ABUSE SERVICES DIRECTOR Ot R91.8 OTHER NONSPECIFIC ABNORMAL FINDING OF [place] 05/18/2018 SHOBHA FIORE S [employer]ANCE ABUSE SERVICES DIRECTOR Ot C18.2 MALIGNANT NEOPLASM OF ASCENDING COLON 05/18/2018 SHOBHA FIORE S [employer] ABUSE SERVICES DIRECTOR Ot M47.816 SPONDYLOSIS W/O MYELOPATHY OR RADICULOPA 05/18/2018 SHOBHA FIORE S [employer] ABUSE SERVICES DIRECTOR Ot N28.1 CYST OF KIDNEY, ACQUIRED 05/18/2018 SHOBHA FIORE S [employer]ANCE ABUSE SERVICES DIRECTOR Ot R59.0 LOCALIZED ENLARGED LYMPH NODES 05/18/2018 SHOBHA FIORE S [employer]ANCE ABUSE SERVICES DIRECTOR Ot R91.8 OTHER NONSPECIFIC ABNORMAL FINDING OF [place] 05/18/2018 RADHA KOHLI DO S Ot 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 05/18/2018 TERESITA SEN N Ot C18.2 MALIGNANT NEOPLASM OF ASCENDING COLON 05/18/2018 TERESITA SEN N Ot R91.8 OTHER NONSPECIFIC ABNORMAL FINDING OF KING 05/18/2018 MCKINLEY BOBAN N Ot C18.2 MALIGNANT NEOPLASM OF ASCENDING COLON 05/18/2018 MCKINLEY, BOBAN N Ot R91.8 OTHER NONSPECIFIC ABNORMAL FINDING OF KING 05/18/2018 MCKINLEY BOBAN N Ot C18.2 MALIGNANT NEOPLASM OF ASCENDING COLON 05/18/2018 TERESITA SEN N Ot 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 05/25/2018 TERESITA SEN N Ot C18.2 MALIGNANT NEOPLASM OF ASCENDING COLON 05/25/2018 TERESITA SEN N Ot D64.9 ANEMIA, UNSPECIFIED 05/25/2018 MCKINLEY BOBAN N Ot F17.210 NICOTINE DEPENDENCE, CIGARETTES, UNCOMPL 05/25/2018 MCKINLEY BOBAN N Ot M47.816 SPONDYLOSIS W/O MYELOPATHY OR RADICULOPA 05/25/2018 MCKINLEY BOBAN N Ot N28.1 CYST OF KIDNEY, ACQUIRED 05/25/2018 MCKINLEY BOBAN N Ot R59.0 LOCALIZED ENLARGED LYMPH NODES 05/25/2018 MCKINLEY BOBAN N Ot R91.8 OTHER NONSPECIFIC ABNORMAL FINDING OF [place] 05/25/2018 MCKINLEY BOBAN N Ot Z79.899 OTHER PINION AND WHEEL TRUER (CURRENT) DRUG THERAPY 05/25/2018 MCKINLEY, BOBAN N Ot Z90.49 ACQUIRED ABSENCE OF OTHER SPECIFIED PART 06/09/2018 RODRIGO VILLARREAL MD Ot C18.2 MALIGNANT NEOPLASM OF ASCENDING COLON 06/09/2018 RODRIGO VILLARREAL MD Ot R59.0 LOCALIZED ENLARGED LYMPH NODES 06/09/2018 RODRIGO VILLARREAL MD Ot R91.8 OTHER NONSPECIFIC ABNORMAL FINDING OF K[place] 06/09/2018 RODRIGO VILLARREAL MD Ot Z90.49 ACQUIRED ABSENCE OF OTHER SPECIFIED PART 06/16/2018 MCKINLEY, BOBAN N Ot C18.2 MALIGNANT NEOPLASM OF ASCENDING COLON 06/16/2018 MCKINLEY, BOBAN N Ot D64.9 ANEMIA, UNSPECIFIED 06/16/2018 MCKINLEY BOBAN N Ot F17.210 NICOTINE DEPENDENCE, CIGARETTES, UNCOMPL 06/16/2018 MCKINLEY BOBAN N Ot M47.816 SPONDYLOSIS W/O MYELOPATHY OR RADICULOPA 06/16/2018 MCKINLEYTERESITA N Ot N28.1 CYST OF KIDNEY, ACQUIRED 06/16/2018 MCKINLEY BOBAN N Ot R59.0 LOCALIZED ENLARGED LYMPH NODES 06/16/2018 MCKINLEY BOBAN N Ot R91.8 OTHER NONSPECIFIC ABNORMAL FINDING OF [place] 06/16/2018 MCKINLEY BOBAN N Ot Z79.899 OTHER PRISON (CURRENT) DRUG THERAPY 06/16/2018 MCKINLEY BOBAN N Ot Z90.49 ACQUIRED ABSENCE OF OTHER SPECIFIED PART 08/16/2018 MCKINLEY, BOBAN N Ot C18.2 MALIGNANT NEOPLASM OF ASCENDING COLON 08/16/2018 MCKINLEY, BOBAN N Ot D64.9 ANEMIA, UNSPECIFIED 08/16/2018 MCKINLEY, BOBAN N Ot F17.210 NICOTINE DEPENDENCE, CIGARETTES, UNCOMPL 08/16/2018 MCKINLEYTERESITA KELLEY N Ot M47.816 SPONDYLOSIS W/O MYELOPATHY OR RADICULOPA 08/16/2018 TERESITA SEN N Ot N28.1 CYST OF KIDNEY, ACQUIRED 08/16/2018 MCKINLEYTERESITA KELLEY N Ot R59.0 LOCALIZED ENLARGED LYMPH NODES 08/16/2018 MCKINLEYTERESITA KELLEY N Ot R91.8 OTHER NONSPECIFIC ABNORMAL FINDING OF [place] 08/16/2018 TERESITA SEN N Ot Z79.899 OTHER PRISON (CURRENT) DRUG THERAPY 08/16/2018 TERESITA SEN N Ot Z90.49 ACQUIRED ABSENCE OF OTHER SPECIFIED PART 08/17/2018 TERESITA SEN N Ot C18.2 MALIGNANT NEOPLASM OF ASCENDING COLON 08/17/2018 TERESITA SEN N Ot D64.9 ANEMIA, UNSPECIFIED 08/17/2018 MCKINLEYTERESITA KELLEY N Ot F17.210 NICOTINE DEPENDENCE, CIGARETTES, UNCOMPL 08/17/2018 MCKINLEYTERESITA KELLEY N Ot M47.816 SPONDYLOSIS W/O MYELOPATHY OR RADICULOPA 08/17/2018 TERESITA SEN N Ot N28.1 CYST OF KIDNEY, ACQUIRED 08/17/2018 MCKINLEYTERESITA N Ot R59.0 LOCALIZED ENLARGED LYMPH NODES 08/17/2018 MCKINLEYTERESITA KELLEY N Ot R91.8 OTHER NONSPECIFIC ABNORMAL FINDING OF [place] 08/17/2018 TERESITA SEN N Ot Z79.899 OTHER PRISON (CURRENT) DRUG THERAPY 08/17/2018 TERESITA SEN N Ot Z90.49 ACQUIRED ABSENCE OF OTHER SPECIFIED PART 08/23/2018 TERESITA SEN N Ot C18.2 MALIGNANT NEOPLASM OF ASCENDING COLON 08/23/2018 TERESITA SEN N Ot D64.9 ANEMIA, UNSPECIFIED 08/23/2018 MCKINLEYTERESITA N Ot F17.210 NICOTINE DEPENDENCE, CIGARETTES, UNCOMPL 08/23/2018 MCKINLEYTERESITA N Ot M47.816 SPONDYLOSIS W/O MYELOPATHY OR RADICULOPA 08/23/2018 TERESITA SEN N Ot N28.1 CYST OF KIDNEY, ACQUIRED 08/23/2018 MCKINLEYTERESITA N Ot R59.0 LOCALIZED ENLARGED LYMPH NODES 08/23/2018 MCKINLEY TERESITA N Ot R91.8 OTHER NONSPECIFIC ABNORMAL FINDING OF [place] 08/23/2018 TERESITA SEN N Ot Z79.899 OTHER PRISON (CURRENT) DRUG THERAPY 08/23/2018 MCKINLEYTERESITA N Ot Z90.49 ACQUIRED ABSENCE OF OTHER SPECIFIED PART 09/26/2018 TERESITA SEN N Ot C18.2 MALIGNANT NEOPLASM OF ASCENDING COLON 09/26/2018 TERESITA SEN N Ot D64.9 ANEMIA, UNSPECIFIED 09/26/2018 MCKINLEY BOBJOSE N Ot F17.210 NICOTINE DEPENDENCE, CIGARETTES, UNCOMPL 09/26/2018 MCKINLEY BOBJOSE N Ot M47.816 SPONDYLOSIS W/O MYELOPATHY OR RADICULOPA 09/26/2018 MCKINLEY BOBAN N Ot N28.1 CYST OF KIDNEY, ACQUIRED 09/26/2018 MCKINLEY BOBAN N Ot R59.0 LOCALIZED ENLARGED LYMPH NODES 09/26/2018 MCKINLEY, BOBAN N Ot R91.8 OTHER NONSPECIFIC ABNORMAL FINDING OF [place] 09/26/2018 TERESITA SEN N Ot Z79.899 OTHER PRISON (CURRENT) DRUG THERAPY 09/26/2018 MCKINLEYTERESITA N Ot Z90.49 ACQUIRED ABSENCE OF OTHER SPECIFIED PART 10/13/2018 TERESITA SEN N Ot C18.2 MALIGNANT NEOPLASM OF ASCENDING COLON 10/13/2018 MCKINLEY BOBJOSE N Ot D64.9 ANEMIA, UNSPECIFIED 10/13/2018 MCKINLEYTERESITA N Ot F17.210 NICOTINE DEPENDENCE, CIGARETTES, UNCOMPL 10/13/2018 MCKINLEY BOBJOSE N Ot M47.816 SPONDYLOSIS W/O MYELOPATHY OR RADICULOPA 10/13/2018 MCKINLEY BOBJOSE N Ot N28.1 CYST OF KIDNEY, ACQUIRED 10/13/2018 MCKINLEY BOBJOSE N Ot R59.0 LOCALIZED ENLARGED LYMPH NODES 10/13/2018 MCKINLEY BOBAN N Ot R91.8 OTHER NONSPECIFIC ABNORMAL FINDING OF [place] 10/13/2018 MCKINLEYTERESITA KELLEY N Ot Z79.899 OTHER [employer] (CURRENT) DRUG THERAPY 10/13/2018 MCKINLEY BOBAN N Ot Z90.49 ACQUIRED ABSENCE OF OTHER SPECIFIED PART 11/14/2018 RADHA KOHLI DO Ot 733.90 BONE CARTILAGE DIS NOS 11/14/2018 GILDARDO AGUILAR, MESHA Ot K21.0 GASTRO-ESOPHAGEAL REFLUX DISEASE WITH ES 11/14/2018 MESHA EWING MD, Ot K29.70 GASTRITIS, UNSPECIFIED, WITHOUT BLEEDING 11/14/2018 MESHA EWING MD, Ot K44.9 DIAPHRAGMATIC HERNIA WITHOUT OBSTRUCTION 11/14/2018 MESHA EWING MD, Ot K63.9 DISEASE OF INTESTINE, UNSPECIFIED 11/14/2018 MESHA EWING MD, Ot K64.1 SECOND DEGREE HEMORRHOIDS 11/14/2018 MESHA EWING MD, Ot Z80.0 FAMILY HISTORY OF MALIGNANT NEOPLASM OF 11/14/2018 MESHA EWING MD, Ot Z86.010 PERSONAL HISTORY OF COLONIC POLYPS 11/14/2018 TERESITA SEN N Ot C18.2 MALIGNANT NEOPLASM OF ASCENDING COLON 11/14/2018 RADHA KOHLI DO Ot R05 COUGH 11/14/2018 SHOBHA FIORE [employer] DIRECTOR Ot C18.2 MALIGNANT NEOPLASM OF ASCENDING COLON 11/14/2018 SHOBHA FIORE S [employer]BU[employer] SERVICES DIRECTOR Ot C18.2 MALIGNANT NEOPLASM OF ASCENDING COLON 11/14/2018 SHOBHA FIORE [employer] SERVICES DIRECTOR Ot R91.8 OTHER NONSPECIFIC ABNORMAL FINDING OF [place] 11/14/2018 SHOBHA FIORE [employer]BU[employer] SERVICES DIRECTOR Ot C18.2 MALIGNANT NEOPLASM OF ASCENDING COLON 11/14/2018 SHOBHA FIORE [employer]BU[employer] DIRECTOR Ot M47.816 SPONDYLOSIS W/O MYELOPATHY OR RADICULOPA 11/14/2018 SHOBHA FIORE [employer] DIRECTOR Ot N28.1 CYST OF KIDNEY, ACQUIRED 11/14/2018 SHOBHA FIORE [employer]BU[employer] SERVICES DIRECTOR Ot R59.0 LOCALIZED ENLARGED LYMPH NODES 11/14/2018 SHOBHA FIORE [employer] DIRECTOR Ot R91.8 OTHER NONSPECIFIC ABNORMAL FINDING OF [place] 11/14/2018 RADHA KOHLI DO S Ot 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 11/14/2018 TERESITA SEN N Ot C18.2 MALIGNANT NEOPLASM OF ASCENDING COLON 11/14/2018 TERESITA SEN N Ot R91.8 OTHER NONSPECIFIC ABNORMAL FINDING OF [place] 11/14/2018 TERESITA SEN N Ot C18.2 MALIGNANT NEOPLASM OF ASCENDING COLON 11/14/2018 MCKINLEYTERESITA KELLEY N Ot R91.8 OTHER NONSPECIFIC ABNORMAL FINDING OF [place] 11/14/2018 TERESITA SEN N Ot C18.2 MALIGNANT NEOPLASM OF ASCENDING COLON 11/14/2018 TERESITA SEN N Ot 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 11/14/2018 RODRIGO VILLARREAL MD Ot C18.2 MALIGNANT NEOPLASM OF ASCENDING COLON 11/14/2018 RODRIGO VILLARREAL MD Ot R59.0 LOCALIZED ENLARGED LYMPH NODES 11/14/2018 RODRIGO VILLARREAL MD Ot R91.8 OTHER NONSPECIFIC ABNORMAL FINDING OF [place] 11/14/2018 RODRIGO VILLARREAL MD Ot Z90.49 ACQUIRED ABSENCE OF OTHER SPECIFIED PART 11/14/2018 TERESITA SEN Ot C18.2 MALIGNANT NEOPLASM OF ASCENDING COLON 11/14/2018 MCKINLEYTERESITA Ot D64.9 ANEMIA, UNSPECIFIED 11/14/2018 TERESITA SEN Ot F17.210 NICOTINE DEPENDENCE, CIGARETTES, UNCOMPL 11/14/2018 TERESITA SEN Ot M47.816 SPONDYLOSIS W/O MYELOPATHY OR RADICULOPA 11/14/2018 TERESITA SEN Ot N28.1 CYST OF KIDNEY, ACQUIRED 11/14/2018 TERESITA SEN Ot R59.0 LOCALIZED ENLARGED LYMPH NODES 11/14/2018 TERESITA SEN Ot R91.8 OTHER NONSPECIFIC ABNORMAL FINDING OF [place] 11/14/2018 TERESITA SEN Joanna Ot Z79.899 OTHER PRISON (CURRENT) DRUG THERAPY 11/14/2018 TERESITA SEN Ot Z90.49 ACQUIRED ABSENCE OF OTHER SPECIFIED PART 11/15/2018 YUNIELBERRYON R BACON STRINGER Ot R06.00 DYSPNEA, UNSPECIFIED 11/15/2018 YUNIEL JOHN R BACON STRINGER Ot R91.8 OTHER NONSPECIFIC ABNORMAL FINDING OF [place] 11/16/2018 DANELLE MAYO APRN Ot E78.00 PURE HYPERCHOLESTEROLEMIA, UNSPECIFIED 11/16/2018 DANELLE MAYO BACON STRINGER Ot I10 ESSENTIAL (PRIMARY) HYPERTENSION 11/16/2018 DANELLE MAYO APRN Ot K12.30 ORAL MUCOSITIS (ULCERATIVE), UNSPECIFIED 11/16/2018 DANELLE MAYO APRN Ot K21.9 GASTRO-ESOPHAGEAL REFLUX DISEASE WITHOUT 11/16/2018 DANELLE MAYO APRN Ot Z79.82 PRISON (CURRENT) USE OF ASPIRIN 11/16/2018 DANELLE AMYO APRN Ot Z80.0 FAMILY HISTORY OF MALIGNANT NEOPLASM OF 11/16/2018 DANELLE MAYO APRN Ot Z85.038 PERSONAL HISTORY OF MALIGNANT NEOPLASM O 11/16/2018 DANELLE MAYO APRN Ot Z88.5 ALLERGY STATUS TO NARCOTIC AGENT STATUS 11/16/2018 DANELLE MAYO APRN Ot Z90.710 ACQUIRED ABSENCE OF BOTH CERVIX AND UTER 11/16/2018 DANELLE MAYO APRN Ot Z92.21 PERSONAL HISTORY OF ANTINEOPLASTIC CHEMO 11/16/2018 DANELLE MAYO APRN Ot Z95.820 PERIPHERAL VASCULAR ANGIOPLASTY STATUS W 11/16/2018 DANELLE MAYO APRN Ot Z98.890 OTHER SPECIFIED POSTPROCEDURAL STATES Procedures Code Description Performed By Performed On [id number] INSERTION OF INFUSION DEV INTO SUP VENA 01/09/2016 [id number] RESECTION OF RIGHT LARGE INTESTINE, OPEN 01/09/2016 [id number] INSERTION OF VAD INTO CHEST SUBCU/FASCIA 01/09/2016 Results Test Result Range Complete blood count (CBC) with automated white blood cell (WBC) differential - 05/22/16 12:08 Blood leukocytes automated count (number/volume) 1.9 10*3/uL 4.3-11.0 Blood erythrocytes automated count (number/volume) 3.82 10*6/uL 4.35-5.85 Venous blood hemoglobin measurement (mass/volume) 10.8 g/dL 11.5-16.0 Blood hematocrit (volume fraction) 33 % 35-52 Automated erythrocyte mean corpuscular volume 86 [foz_us] 80-99 Automated erythrocyte mean corpuscular hemoglobin (mass per erythrocyte) 28 pg 25-34 Automated erythrocyte mean corpuscular hemoglobin concentration measurement (mass/volume) 33 g/dL 32-36 Automated erythrocyte distribution width ratio 18.5 % 10.0- 14.5 Automated blood platelet count (count/volume) 138 10*3/uL 130-400 Automated blood platelet mean volume measurement 11.4 [foz_us] 7.4-10.4 Automated blood neutrophils/100 leukocytes 55 % 42-75 Automated blood lymphocytes/100 leukocytes 38 % 12-44 Blood monocytes/100 leukocytes 3 % 0-12 Automated blood eosinophils/100 leukocytes 3 % 0-10 Automated blood basophils/100 leukocytes 1 % 0-10 Blood neutrophils automated count (number/volume) 1.0 10*3 1.8-7.8 Blood lymphocytes automated count (number/volume) 0.7 10*3 1.0-4.0 Blood monocytes automated count (number/volume) 0.1 10*3 0.0- 1.0 Automated eosinophil count 0.1 10*3/uL 0.0-0.3 Automated blood basophil count (count/volume) 0.0 10*3/uL 0.0-0.1 Comprehensive metabolic panel - 05/22/16 12:08 Serum or plasma sodium measurement (moles/volume) 139 mmol/L 135-145 Serum or plasma potassium measurement (moles/volume) 4.0 mmol/L 3.6-5.0 Serum or plasma chloride measurement (moles/volume) 107 mmol/L 98-107 Carbon dioxide 23 mmol/L 21-32 Serum or plasma anion gap determination (moles/volume) 9 mmol/L 5-14 Serum or plasma urea nitrogen measurement (mass/volume) 15 mg/dL 7-18 Serum or plasma creatinine measurement (mass/volume) 0.81 mg/dL 0.60-1.30 Serum or plasma urea nitrogen/creatinine mass ratio 19 NRG Serum or plasma creatinine measurement with calculation of estimated glomerular filtration rate > NRG Serum or plasma glucose measurement (mass/volume) 92 mg/dL 70-105 Serum or plasma calcium measurement (mass/volume) 9.3 mg/dL 8.5-10.1 Serum or plasma total bilirubin measurement (mass/volume) 0.7 mg/dL 0.1-1.0 Serum or plasma alkaline phosphatase measurement (enzymatic activity/volume) 68 U/L 40-136 Serum or plasma aspartate aminotransferase measurement (enzymatic activity/volume) 28 U/L 5-34 Serum or plasma alanine aminotransferase measurement (enzymatic activity/volume) 16 U/L 0-55 Serum or plasma protein measurement (mass/volume) 6.8 g/dL 6.4-8.2 Serum or plasma albumin measurement (mass/volume) 3.9 g/dL 3.2-4.5 Complete urinalysis with reflex to culture - 05/22/16 13:10 Urine color determination YELLOW NRG Urine clarity determination CLEAR NRG Urine pH measurement by test strip 6 5-9 Specific gravity of urine by test strip 1.020 1.016-1.022 Urine protein assay by test strip, semi-quantitative 2+ NEGATIVE Urine glucose detection by automated test strip 3+ NEGATIVE Erythrocytes detection in urine sediment by light microscopy 1+ NEGATIVE Urine ketones detection by automated test strip 1+ NEGATIVE Urine nitrite detection by test strip NEGATIVE NEGATIVE Urine total bilirubin detection by test strip NEGATIVE NEGATIVE Urine urobilinogen measurement by automated test strip (mass/volume) NORMAL NORMAL Urine leukocyte esterase detection by dipstick 2+ NEGATIVE Automated urine sediment erythrocyte count by microscopy (number/high power field) [HPF] NRG Automated urine sediment leukocyte count by microscopy (number/high power field) [HPF] NRG Bacteria detection in urine sediment by light microscopy FEW NRG Squamous epithelial cells detection in urine sediment by light microscopy 2-5 NRG Crystals detection in urine sediment by light microscopy NONE NRG Casts detection in urine sediment by light microscopy NONE NRG Mucus detection in urine sediment by light microscopy MODERATE NRG Complete urinalysis with reflex to culture NO NRG Complete blood count (CBC) with automated white blood cell (WBC) differential - 11/11/18 19:46 Blood leukocytes automated count (number/volume) 11.9 10*3/uL 4.3-11.0 Blood erythrocytes automated count (number/volume) 3.81 10*6/uL 4.35-5.85 Venous blood hemoglobin measurement (mass/volume) 10.7 g/dL 11.5-16.0 Blood hematocrit (volume fraction) 32 % 35-52 Automated erythrocyte mean corpuscular volume 85 [foz_us] 80-99 Automated erythrocyte mean corpuscular hemoglobin (mass per erythrocyte) 28 pg 25-34 Automated erythrocyte mean corpuscular hemoglobin concentration measurement (mass/volume) 33 g/dL 32-36 Automated erythrocyte distribution width ratio 14.3 % 10.0- 14.5 Automated blood platelet count (count/volume) 315 10*3/uL 130-400 Automated blood platelet mean volume measurement 10.7 [foz_us] 7.4-10.4 Automated blood neutrophils/100 leukocytes 80 % 42-75 Automated blood lymphocytes/100 leukocytes 10 % 12-44 Blood monocytes/100 leukocytes 9 % 0-12 Automated blood eosinophils/100 leukocytes 0 % 0-10 Automated blood basophils/100 leukocytes 0 % 0-10 Blood neutrophils automated count (number/volume) 9.5 10*3 1.8-7.8 Blood lymphocytes automated count (number/volume) 1.2 10*3 1.0-4.0 Blood monocytes automated count (number/volume) 1.1 10*3 0.0- 1.0 Automated eosinophil count 0.1 10*3/uL 0.0-0.3 Automated blood basophil count (count/volume) 0.0 10*3/uL 0.0-0.1 Whole blood basic metabolic panel - 11/11/18 19:46 Serum or plasma sodium measurement (moles/volume) 136 mmol/L 135-145 Serum or plasma potassium measurement (moles/volume) 3.6 mmol/L 3.6-5.0 Serum or plasma chloride measurement (moles/volume) 102 mmol/L 98-107 Carbon dioxide 22 mmol/L 21-32 Serum or plasma anion gap determination (moles/volume) 12 mmol/L 5-14 Serum or plasma urea nitrogen measurement (mass/volume) 10 mg/dL 7-18 Serum or plasma creatinine measurement (mass/volume) 1.01 mg/dL 0.60-1.30 Serum or plasma urea nitrogen/creatinine mass ratio 10 NRG Serum or plasma creatinine measurement with calculation of estimated glomerular filtration rate 54 NRG Serum or plasma glucose measurement (mass/volume) 98 mg/dL 70-105 Serum or plasma calcium measurement (mass/volume) 9.3 mg/dL 8.5-10.1 Complete blood count (CBC) with automated white blood cell (WBC) differential - 11/19/18 17:03 Blood leukocytes automated count (number/volume) 14.1 10*3/uL 4.3-11.0 Blood erythrocytes automated count (number/volume) 3.91 10*6/uL 4.35-5.85 Venous blood hemoglobin measurement (mass/volume) 10.9 g/dL 11.5-16.0 Blood hematocrit (volume fraction) 33 % 35-52 Automated erythrocyte mean corpuscular volume 84 [foz_us] 80-99 Automated erythrocyte mean corpuscular hemoglobin (mass per erythrocyte) 28 pg 25-34 Automated erythrocyte mean corpuscular hemoglobin concentration measurement (mass/volume) 33 g/dL 32-36 Automated erythrocyte distribution width ratio 14.8 % 10.0- 14.5 Automated blood platelet count (count/volume) 366 10*3/uL 130-400 Automated blood platelet mean volume measurement 11.0 [foz_us] 7.4-10.4 Automated blood neutrophils/100 leukocytes 81 % 42-75 Automated blood lymphocytes/100 leukocytes 8 % 12-44 Blood monocytes/100 leukocytes 10 % 0-12 Automated blood eosinophils/100 leukocytes 0 % 0-10 Automated blood basophils/100 leukocytes 0 % 0-10 Blood neutrophils automated count (number/volume) 11.4 10*3 1.8-7.8 Blood lymphocytes automated count (number/volume) 1.2 10*3 1.0-4.0 Blood monocytes automated count (number/volume) 1.5 10*3 0.0- 1.0 Automated eosinophil count 0.0 10*3/uL 0.0-0.3 Automated blood basophil count (count/volume) 0.0 10*3/uL 0.0-0.1 PT panel in platelet poor plasma by coagulation assay - 11/19/18 17:03 Prothrombin time (PT) in platelet poor plasma by coagulation assay 17.3 s 12.2-14.7 INR in platelet poor plasma or blood by coagulation assay 1.4 0.8-1.4 Activated partial thromboplastin time (aPTT) in platelet poor plasma bycoagulation assay - 11/19/18 17:03 Activated partial thromboplastin time (aPTT) in platelet poor plasma bycoagulation assay 36 s 24-35 Comprehensive metabolic panel - 11/19/18 17:03 Serum or plasma sodium measurement (moles/volume) 132 mmol/L 135-145 Serum or plasma potassium measurement (moles/volume) 3.6 mmol/L 3.6-5.0 Serum or plasma chloride measurement (moles/volume) 96 mmol/L 98-107 Carbon dioxide 22 mmol/L 21-32 Serum or plasma anion gap determination (moles/volume) 14 mmol/L 5-14 Serum or plasma urea nitrogen measurement (mass/volume) 14 mg/dL 7-18 Serum or plasma creatinine measurement (mass/volume) 0.89 mg/dL 0.60-1.30 Serum or plasma urea nitrogen/creatinine mass ratio 16 NRG Serum or plasma creatinine measurement with calculation of estimated glomerular filtration rate > NRG Serum or plasma glucose measurement (mass/volume) 101 mg/dL 70-105 Serum or plasma calcium measurement (mass/volume) 9.7 mg/dL 8.5-10.1 Serum or plasma total bilirubin measurement (mass/volume) 2.1 mg/dL 0.1-1.0 Serum or plasma alkaline phosphatase measurement (enzymatic activity/volume) 810 U/L 40-136 Serum or plasma aspartate aminotransferase measurement (enzymatic activity/volume) 297 U/L 5-34 Serum or plasma alanine aminotransferase measurement (enzymatic activity/volume) 224 U/L 0-55 Serum or plasma protein measurement (mass/volume) 7.0 g/dL 6.4-8.2 Serum or plasma albumin measurement (mass/volume) 3.1 g/dL 3.2-4.5 CALCIUM CORRECTED 10.4 mg/dL 8.5-10.1 Blood lactic acid measurement (moles/volume) - 11/19/18 17:03 Blood lactic acid measurement (moles/volume) 2.56 mmol/L 0.50- 2.00 Blood manual differential performed detection - 11/19/18 17:03 Blood monocytes/100 leukocytes 4 % NRG Manual blood segmented neutrophils/100 leukocytes 89 % NRG Blood band neutrophils/100 leukocytes 1 % NRG Manual blood lymphocytes/100 leukocytes 6 % NRG Manual eosinophils/100 leukocytes in nose 0 % NRG Manual blood basophils/100 leukocytes 0 % NRG Blood anisocytosis detection by light microscopy SLIGHT NRG Blood hypochromia detection by light microscopy SLIGHT NRG Blood rouleaux detection by light microscopy SLIGHT NRG Bacterial blood culture - 11/19/18 17:03 Bacterial blood culture NG NRG Serum ragweed IgE antibody assay - 11/19/18 17:03 [id number] 548.8 % 0.0-5.0 Bacterial blood culture - 11/19/18 17:20 Bacterial blood culture NG NRG Complete urinalysis with reflex to culture - 11/19/18 17:25 Urine color determination DARK YELLOW NRG Urine clarity determination CLEAR NRG Urine pH measurement by test strip 6 5-9 Specific gravity of urine by test strip 1.015 1.016-1.022 Urine protein assay by test strip, semi-quantitative 4+ NEGATIVE Urine glucose detection by automated test strip NEGATIVE NEGATIVE Erythrocytes detection in urine sediment by light microscopy 5+ NEGATIVE Urine ketones detection by automated test strip NEGATIVE NEGATIVE Urine nitrite detection by test strip POSITIVE NEGATIVE Urine total bilirubin detection by test strip 2+ NEGATIVE Urine urobilinogen measurement by automated test strip (mass/volume) 8 mg/dL NORMAL Urine leukocyte esterase detection by dipstick 1+ NEGATIVE Automated urine sediment erythrocyte count by microscopy (number/high power field) [HPF] NRG Automated urine sediment leukocyte count by microscopy (number/high power field) [HPF] NRG Bacteria detection in urine sediment by light microscopy TRACE NRG Squamous epithelial cells detection in urine sediment by light microscopy 0-2 NRG Crystals detection in urine sediment by light microscopy PRESENT NRG Casts detection in urine sediment by light microscopy PRESENT NRG Mucus detection in urine sediment by light microscopy SMALL NRG Complete urinalysis with reflex to culture CULTURE PENDING NRG Amorphous sediment detection in urine sediment by light microscopy FEW NOLAN URATES NRG Hyaline casts detection in urine sediment by light microscopy 0-2 NRG Granular casts detection in urine sediment by light microscopy 2-5 NRG Bacterial urine culture - 11/19/18 17:25 Bacterial urine culture NG NRG Ammonia - 11/19/18 18:28 Ammonia 18 umol/L 11-32 Serum or plasma lactate measurement (moles/volume) - 11/19/18 19:00 Serum or plasma lactate measurement (moles/volume) 1.30 mmol/L 0.50-2.00 Complete blood count (CBC) with automated white blood cell (WBC) differential - 11/20/18 04:30 Blood leukocytes automated count (number/volume) 11.7 10*3/uL 4.3-11.0 Blood erythrocytes automated count (number/volume) 3.31 10*6/uL 4.35-5.85 Venous blood hemoglobin measurement (mass/volume) 9.2 g/dL 11.5-16.0 Blood hematocrit (volume fraction) 28 % 35-52 Automated erythrocyte mean corpuscular volume 84 [foz_us] 80-99 Automated erythrocyte mean corpuscular hemoglobin (mass per erythrocyte) 28 pg 25-34 Automated erythrocyte mean corpuscular hemoglobin concentration measurement (mass/volume) 33 g/dL 32-36 Automated erythrocyte distribution width ratio 14.8 % 10.0- 14.5 Automated blood platelet count (count/volume) 306 10*3/uL 130-400 Automated blood platelet mean volume measurement 10.9 [foz_us] 7.4-10.4 Automated blood neutrophils/100 leukocytes 80 % 42-75 Automated blood lymphocytes/100 leukocytes 9 % 12-44 Blood monocytes/100 leukocytes 10 % 0-12 Automated blood eosinophils/100 leukocytes 1 % 0-10 Automated blood basophils/100 leukocytes 0 % 0-10 Blood neutrophils automated count (number/volume) 9.4 10*3 1.8-7.8 Blood lymphocytes automated count (number/volume) 1.1 10*3 1.0-4.0 Blood monocytes automated count (number/volume) 1.2 10*3 0.0- 1.0 Automated eosinophil count 0.1 10*3/uL 0.0-0.3 Automated blood basophil count (count/volume) 0.0 10*3/uL 0.0-0.1 Comprehensive metabolic panel - 11/20/18 04:30 Serum or plasma sodium measurement (moles/volume) 134 mmol/L 135-145 Serum or plasma potassium measurement (moles/volume) 3.2 mmol/L 3.6-5.0 Serum or plasma chloride measurement (moles/volume) 102 mmol/L 98-107 Carbon dioxide 22 mmol/L 21-32 Serum or plasma anion gap determination (moles/volume) 10 mmol/L 5-14 Serum or plasma urea nitrogen measurement (mass/volume) 11 mg/dL 7-18 Serum or plasma creatinine measurement (mass/volume) 0.76 mg/dL 0.60-1.30 Serum or plasma urea nitrogen/creatinine mass ratio 14 NRG Serum or plasma creatinine measurement with calculation of estimated glomerular filtration rate > NRG Serum or plasma glucose measurement (mass/volume) 80 mg/dL 70-105 Serum or plasma calcium measurement (mass/volume) 8.6 mg/dL 8.5-10.1 Serum or plasma total bilirubin measurement (mass/volume) 1.3 mg/dL 0.1-1.0 Serum or plasma alkaline phosphatase measurement (enzymatic activity/volume) 676 U/L 40-136 Serum or plasma aspartate aminotransferase measurement (enzymatic activity/volume) 246 U/L 5-34 Serum or plasma alanine aminotransferase measurement (enzymatic activity/volume) 189 U/L 0-55 Serum or plasma protein measurement (mass/volume) 5.9 g/dL 6.4-8.2 Serum or plasma albumin measurement (mass/volume) 2.7 g/dL 3.2-4.5 CALCIUM CORRECTED 9.6 mg/dL 8.5-10.1 PT panel in platelet poor plasma by coagulation assay - 11/21/18 05:10 Prothrombin time (PT) in platelet poor plasma by coagulation assay 17.5 s 12.2-14.7 INR in platelet poor plasma or blood by coagulation assay 1.4 0.8-1.4 Activated partial thromboplastin time (aPTT) in platelet poor plasma bycoagulation assay - 11/21/18 05:10 Activated partial thromboplastin time (aPTT) in platelet poor plasma bycoagulation assay 38 s 24-35 Complete blood count (CBC) with automated white blood cell (WBC) differential - 11/21/18 05:10 Blood leukocytes automated count (number/volume) 12.1 10*3/uL 4.3-11.0 Blood erythrocytes automated count (number/volume) 3.62 10*6/uL 4.35-5.85 Venous blood hemoglobin measurement (mass/volume) 10.0 g/dL 11.5-16.0 Blood hematocrit (volume fraction) 31 % 35-52 Automated erythrocyte mean corpuscular volume 86 [foz_us] 80-99 Automated erythrocyte mean corpuscular hemoglobin (mass per erythrocyte) 28 pg 25-34 Automated erythrocyte mean corpuscular hemoglobin concentration measurement (mass/volume) 32 g/dL 32-36 Automated erythrocyte distribution width ratio 15.3 % 10.0- 14.5 Automated blood platelet count (count/volume) 336 10*3/uL 130-400 Automated blood platelet mean volume measurement 10.7 [foz_us] 7.4-10.4 Automated blood neutrophils/100 leukocytes 78 % 42-75 Automated blood lymphocytes/100 leukocytes 11 % 12-44 Blood monocytes/100 leukocytes 10 % 0-12 Automated blood eosinophils/100 leukocytes 1 % 0-10 Automated blood basophils/100 leukocytes 0 % 0-10 Blood neutrophils automated count (number/volume) 9.4 10*3 1.8-7.8 Blood lymphocytes automated count (number/volume) 1.3 10*3 1.0-4.0 Blood monocytes automated count (number/volume) 1.2 10*3 0.0- 1.0 Automated eosinophil count 0.1 10*3/uL 0.0-0.3 Automated blood basophil count (count/volume) 0.0 10*3/uL 0.0-0.1 Complete blood count (CBC) with automated white blood cell (WBC) differential - 11/22/18 05:43 Blood leukocytes automated count (number/volume) 12.2 10*3/uL 4.3-11.0 Blood erythrocytes automated count (number/volume) 3.19 10*6/uL 4.35-5.85 Venous blood hemoglobin measurement (mass/volume) 8.7 g/dL 11.5-16.0 Blood hematocrit (volume fraction) 27 % 35-52 Automated erythrocyte mean corpuscular volume 86 [foz_us] 80-99 Automated erythrocyte mean corpuscular hemoglobin (mass per erythrocyte) 27 pg 25-34 Automated erythrocyte mean corpuscular hemoglobin concentration measurement (mass/volume) 32 g/dL 32-36 Automated erythrocyte distribution width ratio 15.0 % 10.0- 14.5 Automated blood platelet count (count/volume) 323 10*3/uL 130-400 Automated blood platelet mean volume measurement 10.7 [foz_us] 7.4-10.4 Automated blood neutrophils/100 leukocytes 79 % 42-75 Automated blood lymphocytes/100 leukocytes 10 % 12-44 Blood monocytes/100 leukocytes 10 % 0-12 Automated blood eosinophils/100 leukocytes 1 % 0-10 Automated blood basophils/100 leukocytes 0 % 0-10 Blood neutrophils automated count (number/volume) 9.6 10*3 1.8-7.8 Blood lymphocytes automated count (number/volume) 1.2 10*3 1.0-4.0 Blood monocytes automated count (number/volume) 1.2 10*3 0.0- 1.0 Automated eosinophil count 0.1 10*3/uL 0.0-0.3 Automated blood basophil count (count/volume) 0.0 10*3/uL 0.0-0.1 Comprehensive metabolic panel - 11/22/18 05:43 Serum or plasma sodium measurement (moles/volume) 134 mmol/L 135-145 Serum or plasma potassium measurement (moles/volume) 3.3 mmol/L 3.6-5.0 Serum or plasma chloride measurement (moles/volume) 102 mmol/L 98-107 Carbon dioxide 22 mmol/L 21-32 Serum or plasma anion gap determination (moles/volume) 10 mmol/L 5-14 Serum or plasma urea nitrogen measurement (mass/volume) 11 mg/dL 7-18 Serum or plasma creatinine measurement (mass/volume) 0.76 mg/dL 0.60-1.30 Serum or plasma urea nitrogen/creatinine mass ratio 14 NRG Serum or plasma creatinine measurement with calculation of estimated glomerular filtration rate > NRG Serum or plasma glucose measurement (mass/volume) 87 mg/dL 70-105 Serum or plasma calcium measurement (mass/volume) 8.5 mg/dL 8.5-10.1 Serum or plasma total bilirubin measurement (mass/volume) 1.4 mg/dL 0.1-1.0 Serum or plasma alkaline phosphatase measurement (enzymatic activity/volume) 767 U/L 40-136 Serum or plasma aspartate aminotransferase measurement (enzymatic activity/volume) 227 U/L 5-34 Serum or plasma alanine aminotransferase measurement (enzymatic activity/volume) 182 U/L 0-55 Serum or plasma protein measurement (mass/volume) 6.1 g/dL 6.4-8.2 Serum or plasma albumin measurement (mass/volume) 2.7 g/dL 3.2-4.5 CALCIUM CORRECTED 9.5 mg/dL 8.5-10.1 Ammonia - 11/23/18 20:02 Ammonia 34 umol/L 11-32 Complete blood count (CBC) with automated white blood cell (WBC) differential - 11/24/18 05:15 Blood leukocytes automated count (number/volume) 11.6 10*3/uL 4.3-11.0 Blood erythrocytes automated count (number/volume) 2.97 10*6/uL 4.35-5.85 Venous blood hemoglobin measurement (mass/volume) 8.2 g/dL 11.5-16.0 Blood hematocrit (volume fraction) 25 % 35-52 Automated erythrocyte mean corpuscular volume 86 [foz_us] 80-99 Automated erythrocyte mean corpuscular hemoglobin (mass per erythrocyte) 28 pg 25-34 Automated erythrocyte mean corpuscular hemoglobin concentration measurement (mass/volume) 32 g/dL 32-36 Automated erythrocyte distribution width ratio 15.2 % 10.0- 14.5 Automated blood platelet count (count/volume) 322 10*3/uL 130-400 Automated blood platelet mean volume measurement 10.7 [foz_us] 7.4-10.4 Automated blood neutrophils/100 leukocytes 78 % 42-75 Automated blood lymphocytes/100 leukocytes 11 % 12-44 Blood monocytes/100 leukocytes 10 % 0-12 Automated blood eosinophils/100 leukocytes 1 % 0-10 Automated blood basophils/100 leukocytes 0 % 0-10 Blood neutrophils automated count (number/volume) 9.0 10*3 1.8-7.8 Blood lymphocytes automated count (number/volume) 1.2 10*3 1.0-4.0 Blood monocytes automated count (number/volume) 1.2 10*3 0.0- 1.0 Automated eosinophil count 0.2 10*3/uL 0.0-0.3 Automated blood basophil count (count/volume) 0.0 10*3/uL 0.0-0.1 Comprehensive metabolic panel - 11/24/18 05:15 Serum or plasma sodium measurement (moles/volume) 133 mmol/L 135-145 Serum or plasma potassium measurement (moles/volume) 3.3 mmol/L 3.6-5.0 Serum or plasma chloride measurement (moles/volume) 100 mmol/L 98-107 Carbon dioxide 22 mmol/L 21-32 Serum or plasma anion gap determination (moles/volume) 11 mmol/L 5-14 Serum or plasma urea nitrogen measurement (mass/volume) 13 mg/dL 7-18 Serum or plasma creatinine measurement (mass/volume) 0.68 mg/dL 0.60-1.30 Serum or plasma urea nitrogen/creatinine mass ratio 19 NRG Serum or plasma creatinine measurement with calculation of estimated glomerular filtration rate > NRG Serum or plasma glucose measurement (mass/volume) 100 mg/dL 70-105 Serum or plasma calcium measurement (mass/volume) 8.2 mg/dL 8.5-10.1 Serum or plasma total bilirubin measurement (mass/volume) 1.6 mg/dL 0.1-1.0 Serum or plasma alkaline phosphatase measurement (enzymatic activity/volume) 611 U/L 40-136 Serum or plasma aspartate aminotransferase measurement (enzymatic activity/volume) 162 U/L 5-34 Serum or plasma alanine aminotransferase measurement (enzymatic activity/volume) 142 U/L 0-55 Serum or plasma protein measurement (mass/volume) 5.7 g/dL 6.4-8.2 Serum or plasma albumin measurement (mass/volume) 2.4 g/dL 3.2-4.5 CALCIUM CORRECTED 9.5 mg/dL 8.5-10.1 Encounters ACCT No. Visit Date/Time Discharge Status Pt. Type Provider Facility Loc./Unit Complaint 05/02/13 11/21/2018 00:15:48 ACT Outpatient Radha Kohli [id number] 08/24/2018 09:19:00 11/22/2018 00:01:00 DIS Outpatient TERESITA SEN [facility] [id number] 11/14/2018 16:08:00 11/14/2018 23:59:59 CLS Outpatient JOHN BRICE [employer] [facility] RAD DYSPNEA [id number] 11/11/2018 18:21:00 11/11/2018 20:28:00 DIS Outpatient MARIA ESTHERDANELLE [employer] [facility] ER SORES IN MOUTH [id number] 08/24/2018 11:46:00 08/24/2018 23:59:59 CLS Preadmit SHOBHA FIORE [employer] DIRECTOR [facility] RAD CANCER OF ASCENDING COLON [id number] 05/25/2018 13:32:00 08/16/2018 00:01:00 DIS Outpatient TERESITA SEN [facility] ONC [id number] 05/18/2018 10:43:00 05/18/2018 23:59:59 CLS Outpatient RODRIGO VILLARREAL MD [facility] RAD CANCER OF ASCENDING COLON,PULMONARY NODULES [id number] 03/01/2018 11:01:00 03/19/2018 00:01:00 DIS Outpatient RODRIGO VILLARREAL MD [facility] ONC [id number] 02/28/2018 08:32:00 02/28/2018 23:59:59 CLS Outpatient TERESITA SEN [facility] RAD CANCER OF ASCENDING COLON [id number] 02/23/2018 09:29:00 02/23/2018 23:59:59 CLS Outpatient TERESITA SEN [facility] RAD CANCER OF ASCENDING COLON [id number] 11/29/2017 13:22:00 02/14/2018 13:37:00 DIS Outpatient TERESITA SEN N [facility] ONC [id number] 08/25/2017 09:54:00 11/23/2017 00:01:00 DIS Outpatient TERESITA SEN [facility] ONC [id number] 08/18/2017 08:10:00 08/24/2017 00:01:00 DIS Outpatient TERESITA SEN [facility] ONC [id number] 08/18/2017 08:20:00 08/18/2017 23:59:59 CLS Outpatient MCKINLEY TERESITA Marshall [facility] RAD R91.8 PULMONARY NODULES [id number] 02/17/2017 09:23:00 03/19/2017 00:01:00 DIS Outpatient MCKINLEYTERESITA Joanna [facility] ONC [id number] 03/10/2017 09:37:00 03/10/2017 23:59:59 CLS Outpatient RADHA KOHLI DO S [facility] RAD RT THUMB PAIN [id number] 02/22/2017 09:40:00 02/22/2017 23:59:59 CLS Outpatient SHOBHA FIORE [employer] SERVICES DIRECTOR [facility] RAD CANCER OF ASCENDING COLON C18.2 [id number] 01/31/2017 06:29:00 01/31/2017 09:45:00 DIS Outpatient ANDREW TREVINO MD [facility] ENDO HX COLON CANCER [id number] 01/27/2017 05:39:00 01/27/2017 15:44:00 DIS Outpatient ANDREW TREVINO MD [facility] PREOP HX OF COLON CANCER [id number] 01/17/2017 08:25:00 01/23/2017 00:01:00 DIS Outpatient TERESITA SEN [facility] ONC [id number] 09/13/2016 13:57:00 09/21/2016 00:01:00 DIS Outpatient TERESITA SEN [facility] ONC [id number] 08/30/2016 08:50:00 08/30/2016 23:59:59 CLS Outpatient SHOBHA FIORE [employer] A[employer]SE SERVICES DIRECTOR [facility] RAD CANCER OF ASCENDING COLON,PULMONARY NODULES [id number] 06/15/2016 09:01:00 06/21/2016 00:01:00 DIS Outpatient TERESITA SEN [facility] ONC [id number] 06/03/2016 10:40:00 06/03/2016 23:59:59 CLS Outpatient SHOBHA FIORE [employer] ABUSE SERVICES DIRECTOR [facility] RAD CA OF ASCENDING COLON [id number] 05/22/2016 10:32:00 05/22/2016 14:13:00 DIS Emergency DANELLE MAYO [employer] [facility] ER DIARRHEA [id number] 05/10/2016 15:04:00 05/10/2016 23:59:59 CLS Outpatient RADHA KOHLI DO [facility] RAD COUGH [id number] 03/16/2016 09:42:00 03/22/2016 09:39:00 DIS Outpatient TERESITA SEN [facility] ONC [id number] 02/17/2016 12:08:00 02/17/2016 23:59:59 CLS Outpatient TERESITA SEN [facility] RAD CANCER OF ASCENDING COLON [id number] 01/09/2016 08:00:00 01/13/2016 13:40:00 DIS Inpatient MESHA EWING MD [facility] 4TH COLON CANCER [id number] 01/08/2016 08:58:00 01/08/2016 09:45:00 DIS Outpatient MESHA EWING MD [facility] PREOP COLON CANCER [id number] 12/31/2015 10:31:00 12/31/2015 23:59:59 CLS Outpatient MESHA EWING MD [facility] SDC ABD PAIN,HX POLYS [id number] 12/30/2015 13:57:00 12/30/2015 15:39:00 DIS Outpatient MESHA EWING MD [facility] PREOP ABD PAIN,HX POLPYS [id number] 12/18/2015 12:36:00 12/18/2015 23:59:59 CLS Outpatient RADHA KOHLI DO [facility] RAD GENERALIZED ABDOMINAL PAIN [id number] 10/13/2015 08:58:00 10/13/2015 23:59:59 CLS Outpatient TWILA MARIE MD [facility] RAD COPD,HTN [id number] 12/16/2014 15:00:00 12/17/2014 09:26:00 DIS Inpatient RADHA KOHLI DO [facility] SURGICAL ACUTE DEHYDRATION,VERTIGO [id number] 04/04/2014 10:48:00 04/04/2014 23:59:59 CLS Outpatient OMAR KOHLI DOLINE S [facility] RAD OSTEOPENIA [id number] 01/22/2013 11:08:00 01/22/2013 15:43:00 DIS Outpatient ANDREW TREVINO MD [facility] SDC RECTAL BLEEDING [id number] 01/17/2013 07:29:00 01/17/2013 23:59:59 CLS Outpatient ANDREW TREVINO MD [facility] PREOP RECTAL BLEEDING [id number] 12/19/2012 12:52:00 01/05/2013 13:38:00 DIS Outpatient RADHA KOHLI DO S [facility] REHAB R PUBIC RAMI FX [id number] 12/29/2012 22:44:00 12/30/2012 00:16:00 DIS Emergency ELIESER HICKS MD [facility] ER RECTAL BLEEDING [id number] 11/28/2012 09:23:00 11/28/2012 23:59:59 CLS Outpatient FLORENCE KOHLI DOQUELINE S [facility] RAD RT HIP PAIN [id number] 10/27/2012 11:36:00 10/27/2012 13:05:00 DIS Emergency DEE AUSTIN DOA K [facility] ER FALL [id number] 11/23/2018 00:10:00 PEN Preadmit TERESITA SEN [facility] ONC [id number] 11/19/2018 19:12:00 ACT Inpatient OMAR KOHLI DOLINE S [facility] 4TH LIVO MASS, LUNG CA, UTI [id number] 07/11/2012 09:00:00 Document Registration [id number] 12/01/2011 05:38:00 Document Registration [id number] 11/29/2011 09:39:00 Document Registration [id number] 07/07/2011 06:00:00 Document Registration [id number] 07/01/2011 09:18:00 Document Registration [id number] 03/03/2011 05:38:00 Document Registration [id number] 03/02/2011 11:22:00 Document Registration [id number] 02/27/2011 18:10:00 Document Registration [id number] 01/27/2011 11:35:00 Document Registration [id number] 09/28/2010 09:28:00 Document Registration [id number] 08/28/2010 10:47:00 Document Registration [id number] 05/12/2009 09:09:00 Document Registration
--- NOTE | 2018-11-24 14:58 | Physical Therapy Evaluation ---
PT Evaluation-General Medical Diagnosis Admission Date Nov 24, 2018 at 11:30 Medical Diagnosis: colon cancer with mets Onset Date: Nov 19, 2018 Therapy Diagnosis Therapy Diagnosis: impaired mobility, strength, endurance Height/Weight Height (Feet): 5 Height (Inches): 0.00 Weight (Pounds): 107 Weight (Ounces): 3.0 Referral Physician: Kamilla Medical History Pertinent Medical History: Arthritis, GERD, HTN Additional Medical History Pt admitted with complaints of abdominal pain. Pt has a history of colon CA and now with metastatic disease to the liver and lungs. Reviewed History: Yes Social History Home: Single Level Current Living Status: Spouse Entry Into Home: Stairs With Railing PT Steps Into Home: 2 Prior/Core FIM Prior Level of Function Therapy Code Descriptions/Definitions Functional Beadle Measure: 0=Not Assessed/NA 4=Minimal Assistance 1=Total Assistance 5=Supervision or Setup 2=Maximal Assistance 6=Modified Beadle 3=Moderate Assistance 7=Complete Beadle Therapy Quality Codes: 6 Independent with activity with or without an assistive device 5 Patient requires set up or clean up by helper. Patient completes activity by themselves 4 Supervision or touching assist (CGA). [place] provide cues , steadying assist 3 The helper provides less than half the effort to complete the activity 2 The helper provides more than half the effort to complete the activity 1 Dependent. The helper does all the effort to complete an activity 7 Patient refused to complete or attempt activity 9 The patient did not perform the activity before the current illness or injury 88 Not attempted due to Medical conditions or safety concerns Functional Abilities and Goals: Independent: Patient completed the activities by him/herself, with or without an assistive device, with no assistance from a helper. Needed Some Help: Patient needed partial assistance from another person to complete activities. Dependent: A helper completed the activities for the patient. Unknown: Not Applicable: Bed Mobility: 7 Transfers (B,C,W/C) (FIM): 7 Gait: 7 Stairs: 7 Indoor Mobility (Ambulation): Independent Stairs: Independent PT Evaluation-Current Subjective Patient in bed pre tx, agrees to PT, has pain of 3-4/10 in abdomen. Pt/Family Goals to be independent at home Objective Patient Orientation: Person, Confused, Place Attachments: IV ROM/Strength ROM Lower Extremities WNL Strenght Lower Extremities RLE (hip flexion 3-/5, knee flexion 2/5, knee extension 4/5, dorsiflexion 4+/5), LLE (hip flexion 3-/5, knee flexion 2/5, knee extension 4/5, dorsiflexion 4+/5) Neuromuscular (Tone, Coordination, Reflexes) NT Sensory Vision: Wears Glasses Hearing: Functional Hand Dominance: Right Sensation Right Lower Extremit: Intact Sensation Left Lower Extremity: Intact Transfers Therapy Code Descriptions/Definitions Functional Beadle Measure: 0=Not Assessed/NA 4=Minimal Assistance 1=Total Assistance 5=Supervision or Setup 2=Maximal Assistance 6=Modified Beadle 3=Moderate Assistance 7=Complete Beadle Therapy Quality Codes: 6 Independent with activity with or without an assistive device 5 Patient requires set up or clean up by helper. Patient completes activity by themselves 4 Supervision or touching assist (CGA). [place] provide cues , steadying assist 3 The helper provides less than half the effort to complete the activity 2 The helper provides more than half the effort to complete the activity 1 Dependent. The helper does all the effort to complete an activity 7 Patient refused to complete or attempt activity 9 The patient did not perform the activity before the current illness or injury 88 Not attempted due to Medical conditions or safety concerns Transfers (B, C, W/C) (FIM): 4 Scootin Rollin Roll Left to Right (QC): 4 Supine to/from Sit: 4 Sit to/from Stand: 4 Sit to Lying (QC): 3 Lying to Sitting/Side of Bed(Q: 3 Sit to Stand (QC): 4 Patient performs bed mobility with SBA, supine <-> sit with min assist, sit <-> stand with CGA. Cues for hand placement and positioning. Patient was dizzy after sitting and standing even with rest. She did get morphine not too long ago. She was only able to stand for a couple of minutes, dizzy the whole time, before needing to sit. She did not want to transfer to the bedside chair. Gait Does the Patient Walk?: Yes Mode of Locomotion: Walk Anticipated Mode of Locomotion: Walk Gait (FIM): 1 Distance: 2' Gait Level of Assist: 4 Gait Persons Needed: 1 Gait Assistive Device: FWW Comments/Gait Description Patient was able to take a couple of steps toward the head of the bed before sitting. CGA. Balance Sitting Static: Good Sitting Dynamic: Good Standing Static: Good Standing Dynamic: Good Treatment supine bed exercises: HS x15, SLR AAROM x15, AP x20 Assessment/Needs Patient has impaired mobility, strength, endurance, balance. She is dizzy when sitting or standing. Patient fatigues very quickly. Patient BTB post tx with nurse call, phone, tray, family in the room, telesitter in room. Rehab Potential: Guarded PT Transcription Typist Goals Senior Living Goals PT Transcription Typist Goals Time Frame: Dec 01, 2018 Transfers (B,C,W/C) (FIM): 5 Sit to Lying (QC): 4 Lying-Sitting on Side/Bed(QC): 4 Sit to Stand (QC): 4 Rollin Roll Left to Right (QC): 4 Chair/Xcd-qi-Kzlei Xfer(QC): 4 Gait (FIM): 2 Distance: 50' Walk 10 feet (QC): 4 Walk 50ft with 2 Turns (QC): 4 Gait Level of Assist: 5 Gait Assistive Device: FWW PT Plan Problem List Problem List: Activity Tolerance, Functional Strength, Safety, Balance, Gait, Transfer, Bed Mobility Treatment/Plan Treatment Plan: Continue Plan of Care Treatment Plan: Bed Mobility, Education, Functional Activity Raghavendra, Functional Strength, Gait, Safety, Therapeutic Exercise, Transfers Treatment Duration: Dec 01, 2018 Frequency: 6 times per week Estimated Hrs Per Day: .25 hour per day (15-30') Patient and/or Family Agrees t: Yes Safety Risks/Education Patient Education: Gait Training, Transfer Techniques, Correct Positioning, Safety Issues Teaching Recipient: Patient Teaching Methods: Demonstration, Discussion Response to Teaching: Reinforcement Needed Discharge Recommendations Plan Patient will perform bed mobility and transfer training, balance and endurance training, functional strengthening, gait training, and education to improve functional mobility and independence at home. Therapy D/C Recommendations: Home w/ Family Support, Snf (TCU/NH) Time/GCodes Time In: 1425 Time Out: 1455 Total Billed Treatment Time: 30 Total Billed Treatment 1 visit HEBERT 30' ZONIA SCHWARZ PT Nov 24, 2018 14:58
--- NOTE | 2018-11-24 17:29 | NUR ---
ADMITT[facility] TO [facility]
[2018-11-24 18:00] VITALS: BP 103/51
[2018-11-24] MEDS: PIPERACILLIN/TAZOBACTAM (BULK) 4.5 GM in NS (IVPB) 100 ML IV SCH (18:11)
[2018-11-24] MEDS: NS IV 1000 ML 1,000 ML IV SCH (19:23)
[2018-11-24] MEDS: SERTRALINE 50 MG (ZOLOFT) TABLET PO SCH (21:47)
[2018-11-24] MEDS: ALPRAZolam 0.25 MG (XANAX) TAB PO SCH (21:47)
[2018-11-24] MEDS: SENNA W/DOCUSATE (SENOKOT S) TABLET PO SCH (21:48)
[2018-11-25] MEDS: PIPERACILLIN/TAZOBACTAM (BULK) 4.5 GM in NS (IVPB) 100 ML IV SCH ×3 (03:31→17:35)
[2018-11-25] MEDS: morphine INJ 4 MG/ML 1 ML (VIAL/SYRINGE) IV PRN ×3 (03:36→21:02)
[2018-11-25 05:01] LABS: BASOPHILS % (AUTO) 0 % (0-10); EOSINOPHILS # (AUTO) 0.1 10^3/uL (0.0-0.3); EOSINOPHILS % (AUTO) 1 % (0-10); HEMATOCRIT 26 % (35-52); HEMOGLOBIN 8.3 G/DL (11.5-16.0); LYMPHOCYTES % (AUTO) 7 % (12-44); MEAN CORPUSCULAR HEMOGLOBIN 27 PG (25-34); MEAN CORPUSCULAR HGB CONC 32 G/DL (32-36); MEAN CORPUSCULAR VOLUME 86 FL (80-99); MEAN PLATELET VOLUME 10.4 FL (7.4-10.4); MONOCYTES # (AUTO) 1.2 X 10^3 (0.0-1.0); MONOCYTES % (AUTO) 9 % (0-12); NEUTROPHILS # (AUTO) 11.4 X 10^3 (1.8-7.8); NEUTROPHILS % (AUTO) 83 % (42-75); PLATELET COUNT 366 10^3/uL (130-400); RED CELL DISTRIBUTION WIDTH 15.7 % (10.0-14.5); WHITE BLOOD COUNT 13.8 10^3/uL (4.3-11.0)
[2018-11-25 05:24] LABS: ALANINE AMINOTRANSFERASE 136 U/L (0-55); ALBUMIN 2.5 GM/DL (3.2-4.5); ALKALINE PHOSPHATASE 610 U/L (40-136); BILIRUBIN,TOTAL 2.1 MG/DL (0.1-1.0); BUN/CREATININE RATIO 18; CALCIUM 8.6 MG/DL (8.5-10.1); CARBON DIOXIDE 21 MMOL/L (21-32); CHLORIDE 101 MMOL/L (98-107); CREATININE SERUM 0.66 MG/DL (0.60-1.30); GFR ESTIMATED > 60; GLUCOSE 96 MG/DL (70-105); POTASSIUM 3.6 MMOL/L (3.6-5.0); SODIUM 133 MMOL/L (135-145)
[2018-11-25 06:00] VITALS: BP 120/59
--- NOTE | 2018-11-25 08:05 | Physical Therapy Progress Note ---
Therapy Progress Note Patient declined PT secondary to abdominal pain / and extreme nausea. RN notified. PT attempted to educate patient on importance of OOB activity, however, patient continued to decline. 1 ref ([id number]) BRANDON RIOS PT Nov 25, 2018 08:05
[2018-11-25] MEDS: SENNA W/DOCUSATE (SENOKOT S) TABLET PO SCH ×2 (08:23→20:53)
[2018-11-25] MEDS: PANTOPRAZOLE 40 MG (PROTONIX) VIAL IV SCH (08:25)
[2018-11-25] MEDS: NS IV 1000 ML 1,000 ML IV SCH ×2 (11:39→18:47)
--- NOTE | 2018-11-25 12:04 | Progress Note-Hospitalist ---
Subjective HPI/CC On Admission Date Seen by Provider: Nov 25, 2018 Time Seen by Provider: 11:30 Subjective/Events-last exam Patient lethargic but complaining of pain so meds were given Maintained on stool softener Family at the bedside No changes required Review of Systems General: Fatigue Gastrointestinal: Abdominal Pain Objective Exam Vital Signs Vital Signs Date Time Temp Pulse Resp B/P (MAP) Pulse Ox O2 Delivery O2 Flow Rate FiO2 11/25/18 09:34 95 Room Air 11/25/18 06:00 100.4 99 18 120/59 (79) Capillary Refill : General Appearance: Anxious, Chronically ill, Cachetic, Mild Distress Respiratory: Chest Non Tender, Lungs Clear, Normal Breath Sounds, No Accessory Muscle Use, No Respiratory Distress Cardiovascular: Regular Rate, Rhythm, No Edema, No Gallop, No JVD, No Murmur, Normal Peripheral Pulses Neurologic/Psychiatric: Alert, Disoriented Skin: Normal Color, Warm/Dry Results/Procedures Lab Laboratory Tests 11/25/18 04:50 Patient resulted labs reviewed. Assessment/Plan Assessment and Plan Assess & Plan/Chief Complaint Assessment: Colon cancer with widespread metastasis Liver failure Plan: Monitor closely Pain control Diagnosis/Problems Diagnosis/Problems (1) Metastatic carcinoma involving liver with unknown primary site Status: Acute (2) Metastatic cancer to lung of unknown cell type Status: Acute (3) Cancer of right colon Status: Acute KISHA BROWN DO Nov 25, 2018 12:04
[2018-11-25 18:44] VITALS: BP 138/60
[2018-11-25] MEDS: SERTRALINE 50 MG (ZOLOFT) TABLET PO SCH (20:53)
[2018-11-25] MEDS: ALPRAZolam 0.25 MG (XANAX) TAB PO SCH (20:53)
[2018-11-26] MEDS: PIPERACILLIN/TAZOBACTAM (BULK) 4.5 GM in NS (IVPB) 100 ML IV SCH ×3 (02:27→17:24)
[2018-11-26 06:03] VITALS: BP 126/57
[2018-11-26] MEDS: PANTOPRAZOLE 40 MG (PROTONIX) VIAL IV SCH (08:46)
[2018-11-26] MEDS: SENNA W/DOCUSATE (SENOKOT S) TABLET PO SCH ×2 (08:47→21:18)
[2018-11-26] MEDS: morphine INJ 4 MG/ML 1 ML (VIAL/SYRINGE) IV PRN (15:47)
[2018-11-26] MEDS: NS IV 1000 ML 1,000 ML IV SCH (17:32)
[2018-11-26 18:10] VITALS: BP 113/53
[2018-11-26] MEDS: SERTRALINE 50 MG (ZOLOFT) TABLET PO SCH (21:18)
[2018-11-26] MEDS: ALPRAZolam 0.25 MG (XANAX) TAB PO SCH (21:18)
[2018-11-27] MEDS: PIPERACILLIN/TAZOBACTAM (BULK) 4.5 GM in NS (IVPB) 100 ML IV SCH ×2 (01:53→09:23)
[2018-11-27 06:12] VITALS: BP 135/67
[2018-11-27] MEDS: PANTOPRAZOLE 40 MG (PROTONIX) VIAL IV SCH (09:09)
[2018-11-27] MEDS: SENNA W/DOCUSATE (SENOKOT S) TABLET PO SCH (09:09)
[2018-11-27] MEDS: morphine INJ 4 MG/ML 1 ML (VIAL/SYRINGE) IV PRN ×4 (09:23→21:58)
--- NOTE | 2018-11-27 09:48 | NUR ---
PALLIATIVE CARE RN in to see the patient. She is not doing well this morning. Showing signs of progressive disease with increased weakness and inability to verbalize. She is reported by the to not have eaten much in the last few days and this is reflected in her record as well. . No repeat labs have been ordered but suspect that her liver values are increasing. She continue on IV ABX and fluid currently. Discharge was anticipated for today, unsure what plan is now in her declined state. Will discuss with Dr. Kohli when she rounds. It appears that she is entering the dying process.
--- NOTE | 2018-11-27 11:27 | Physical Therapy Progress Note ---
Therapy Progress Note No treatment per family due to patient is asleep and "not in pain" per family report. PT respects patient wishes. BRANDON RIOS PT Nov 27, 2018 11:27
--- NOTE | 2018-11-27 12:24 | Progress Note (SOAP) ---
Subjective Date Seen by a Provider: Nov 27, 2018 Time Seen by a Provider: 12:23 Subjective/Events-last exam Fwup metastatic colon cancer. Condition worsening. Objective Exam Vital Signs Date Time Temp Pulse Resp B/P (MAP) Pulse Ox O2 Delivery O2 Flow Rate FiO2 11/27/18 06:12 97.6 95 16 135/67 (89) 95 Room Air 11/26/18 21:00 Room Air 11/26/18 18:10 98.9 97 16 113/53 (73) 93 Room Air I & O 11/27/18 07:00 Intake Total 1820 ml Balance 1820 ml Capillary Refill : General Appearance: No Apparent Distress Respiratory: Lungs Clear Cardiovascular: Regular Rate, Rhythm Gastrointestinal: normal bowel sounds, non tender, soft Neurologic/Psychiatric: Motor Weakness, Other (lethargic) Assessment/Plan Assessment/Plan Assess & Plan/Chief Complaint 1. Metastatic Colon Cancer--long discussion with daughter and they want to proceed with comfort care NEMESIO CAMACHO DO Nov 27, 2018 12:24
[2018-11-27] MEDS ORDERED: ACETAMINOPHEN 650 MG SUPP (TYLENOL) PR PRN (12:30)
[2018-11-27] MEDS ORDERED: ARTIFICAL TEARS 0.4 ML UNIT DOSE (REFRESH PLUS) OU PRN (12:30)
[2018-11-27] MEDS ORDERED: RT-ALBUTEROL/IPRATROPIUM 3 ML (DUONEB) VIAL INH PRN (12:30)
[2018-11-27] MEDS ORDERED: SALIVA STIMULANT MOUTH SPRAY (BIOTENE) 1.5 OZ MM PRN (12:30)
[2018-11-27] MEDS ORDERED: ONDANSETRON 4 MG/2 ML (SDV) Z0FRAN IVP PRN (12:30)
[2018-11-27] MEDS ORDERED: PROMETHAZINE INJ 25 MG/ML (PHENERGAN) AMP IVP PRN (12:30)
[2018-11-27] MEDS ORDERED: GLYCOPYRROLATE 0.2 MG/ML (ROBINUL) 2 ML VIAL IV PRN (12:30)
[2018-11-27] MEDS ORDERED: BISACODYL 10 MG SUPP (DULCOLAX) PR PRN (12:30)
--- NOTE | 2018-11-27 13:23 | NUR ---
Engaged pt and family. Pt was alert and oriented. Her family shared that she has been increasingly alert today. 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 I contacted [facility] in [place] per pt's request. Empathic listening and compassionate presence offered.
--- NOTE | 2018-11-27 15:04 | Occupational Ther Daily Note ---
OT Current Status-Daily Note Subjective Pt sitting in recliner with eyes closed. Family requests for pt to be transferred back to bed. Mental Status/Objective Therapy Code Descriptions/Definitions Functional [place] Measure: 0=Not Assessed/NA 4=Minimal Assistance 1=Total Assistance 5=Supervision or Setup 2=Maximal Assistance 6=Modified [place] 3=Moderate Assistance 7=Complete [place] ADL-Treatment Therapy Code Descriptions/Definitions Functional [place] Measure: 0=Not Assessed/NA 4=Minimal Assistance 1=Total Assistance 5=Supervision or Setup 2=Maximal Assistance 6=Modified [place] 3=Moderate Assistance 7=Complete [place] Therapy Quality Codes: 6 Independent with activity with or without an assistive device 5 Patient requires set up or clean up by helper. Patient completes activity by themselves 4 Supervision or touching assist (CGA). [place] provide cues , steadying assist 3 The helper provides less than half the effort to complete the activity 2 The helper provides more than half the effort to complete the activity 1 Dependent. The helper does all the effort to complete an activity 7 Patient refused to complete or attempt activity 9 The patient did not perform the activity before the current illness or injury 88 Not attempted due to Medical conditions or safety concerns Other Treatment Max A for SPT from recliner to bed. Max A for EOB to supine and bed mobility. Increased edema noted throughout body. Pt opened eyes only did not say anything. After therapy, pt lying in bed with family present. All needs met in room. OT Short Term Goals Short Term Goals 1=Demonstrate adherence to instructed precautions during ADL tasks. 2=Patient will verbalize/demonstrate understanding of assistive devices/modifications for ADL. 3=Patient will improve strength/tolerance for activity to enable patient to perform ADL's. OT Sail Cutter Goals [facility] Goals Time Frame: Dec 08, 2018 Eating (FIM): 5 Eating (QC): 5 Groomin Oral Hygiene (QC): 5 Bathing(FIM): 5 Shower/Bathe Self (QC): 5 Upper Body Dressing(FIM): 5 Upper Body Dressing (QC): 5 Lower Body Dressing(FIM): 5 Lower Body Dressing (QC): 5 On/Off Footwear (QC): 5 Toileting(FIM): 5 Toileting Hygiene (QC): 5 Toilet/Commode Transfer(FIM): 5 Toilet/Commode Transfer (QC): 5 Additional Goals: 1-Demonstrate ADL Tasks, 2-Verbalize Understanding, 3- ImproveStrength/Raghavendra 1=Demonstrate adherence to instructed precautions during ADL tasks. 2=Patient will verbalize/demonstrate understanding of assistive devices/modifications for ADL. 3=Patient will improve strength/tolerance for activity to enable patient to perform ADL's. OT Education/Plan Problem List/Assessment Assessment: Decreased Activ Tolerance, Dependent Transfers, Impaired Coordination, Impaired Self-Care Skills Pt to benefit from skilled OT intervention to increase safety with ADLs and transfers and to allow safe transition home. Discharge Recommendations Plan/Recommendations: Continue POC Treatment Plan/Plan of Care Patient would benefit from OT for education, treatment and training to promote independence in ADL's, mobility, safety and/or upper extremity function for ADL's. Plan of Care: ADL Retraining, Functional Mobility, UE Funct Exercise/Act Treatment Duration: Dec 08, 2018 Frequency: 5 times per week Estimated Hrs Per Day: .25 hour per day Agreement: Yes Rehab Potential: Guarded Time/GCodes Start Time: 14:45 Stop Time: 14:50 Total Time Billed (hr/min): 5 Billed Treatment Time 1 visit BOB MARIEE Nov 27, 2018 15:04
--- NOTE | 2018-11-27 15:19 | NUR ---
provided prayer and Communion.
--- NOTE | 2018-11-27 17:02 | Progress Note-Standard ---
Standard Progress Note Progress Notes/Assess & Plan Date Seen by a Provider: Nov 27, 2018 Time Seen by a Provider: 16:57 Progress/Assessment & Plan 73-year-old female with recent diagnosis of metastatic colon cancer to the liver. Status post liver biopsy with MMR normal and HER-2/mirella negative tumor. KRAS, NRAS and BRAF pending. Patient is rapidly worsening and debilitated. Performance status is 3-4 by Zubrod scale. Patient and family has decided to proceed with best supportive care only. All her medications have been discontinued except morphine 1 mg as needed for pain control. She has used this 3-4 times today and is resting comfortably. She is somnolent but arousable. Her and daughter present in room. They are comfortable with comfort care alone. She is terminal. Will follow patient with you. TERESITA SEN Nov 27, 2018 17:02
[2018-11-27 17:37] VITALS: BP 135/64
[2018-11-28] MEDS: morphine INJ 4 MG/ML 1 ML (VIAL/SYRINGE) IV PRN ×6 (03:12→19:40)
[2018-11-28 06:00] VITALS: BP 140/64
--- NOTE | 2018-11-28 07:59 | Therapy Team Discharge Summary ---
Therapy Discharge Summary Discharge Recommendations Date of Discharge Therapy D/C Recommendations: Home w/ Family Support, Senior Care (TCU/NH) Physical Therapy Patient has declined rapidly in medical status. Per physician report, Family has decided on comfort measures only and all supportive services have been ceased. PT to dismiss patient from services at this time. Occupational Therapy Decreased Activ Tolerance, Dependent Transfers, Impaired Coordination, Impaired Self-Care Skills PT Long-Term Goals Cone Worker Goals PT Cone Worker Goals Time Frame: Dec 01, 2018 Transfers (B,C,W/C) (FIM): 5 Sit to Lying (QC): 4 Lying-Sitting on Side/Bed(QC): 4 Sit to Stand (QC): 4 Rollin Chair/Ndg-vs-Ofenb Xfer(QC): 4 Gait (FIM): 2 Distance: 50' Walk 50ft with 2 Turns (QC): 4 Gait Level of Assist: 5 Gait Assistive Device: FWW OT Long-Term Goals Cone Worker Goals Time Frame: Dec 08, 2018 Eating (FIM): 5 Eating (QC): 5 Groomin Oral Hygiene (QC): 5 Bathing(FIM): 5 Upper Body Dressing(FIM): 5 Lower Body Dressing(FIM): 5 Toileting(FIM): 5 Toileting Hygiene (QC): 5 Toilet/Commode Transfer(FIM): 5 Toilet/Commode Transfer (QC): 5 Additional Goals: 1-Demonstrate ADL Tasks, 2-Verbalize Understanding, 3-Impro veStrength/Raghavendra 1=Demonstrate adherence to instructed precautions during ADL tasks. 2=Patient will verbalize/demonstrate understanding of assistive devices/modifications for ADL. 3=Patient will improve strength/tolerance for activity to enable patient to perform ADL's. BRANDON RIOS PT Nov 28, 2018 07:59
--- NOTE | 2018-11-28 10:48 | NUR ---
PALLIATIVE CARE RN in to see the patient. She is resting and her is sitting beside the bed holding her hand. Patient does awaken and reports discomfort in belly. She is made comfort care measures only and is expected to pass in the next days to weeks. Her rapid decline thus far would lead one to believe it will be the sooner. However, discussion with daughter as to inability to stay indefinitely if she fails to decline further. Need to consider the other options of SNF w Hospice or Home with Hospice.
--- NOTE | 2018-11-28 12:44 | Progress Note (SOAP) ---
Subjective Date Seen by a Provider: Nov 28, 2018 Time Seen by a Provider: 12:43 Subjective/Events-last exam Fwup metastatic colon cancer. Awake in bed with complaints of abdominal pain. Objective Exam Vital Signs Date Time Temp Pulse Resp B/P (MAP) Pulse Ox O2 Delivery O2 Flow Rate FiO2 11/28/18 06:00 96.7 93 16 140/64 (89) 93 Room Air 11/27/18 21:00 Room Air 11/27/18 17:37 97.8 92 16 135/64 (87) 95 Room Air I & O 11/28/18 07:00 Intake Total 420 ml Output Total 575 ml Balance -155 ml Capillary Refill : General Appearance: Mild Distress Respiratory: Decreased Breath Sounds Cardiovascular: Tachycardia Neurologic/Psychiatric: Alert Skin: Warm/Dry Assessment/Plan Assessment/Plan Assess & Plan/Chief Complaint 1. Metastatic Colon Cancer--on comfort care--still able to take oral oxycodone and using morphine IV prn NEMESIO CAMACHO DO Nov 28, 2018 12:44
--- NOTE | 2018-11-28 13:54 | NUR ---
provided prayer and Communion.
--- NOTE | 2018-11-28 15:08 | Therapy Team Discharge Summary ---
Therapy Discharge Summary Discharge Recommendations Date of Discharge 11-28-18 Therapy D/C Recommendations: Home w/ Family Support, Shelter (TCU/NH) Occupational Therapy Pt. has been seen by occupational therapy to work on overall increased independence. However, pt. has sustained rapid medical decline and at this time, is on comfort care measures. OT will be discharged at this time. Decreased Activ Tolerance, Decreased UE Strength, Dependent Transfers, Impaired Bed Mobility, Impaired Coordination, Impaired I ADL's, Impaired Self-Care Skills PT Harp Regulator Goals Harp Regulator Goals PT Assisted Goals Time Frame: Dec 01, 2018 Transfers (B,C,W/C) (FIM): 5 Sit to Lying (QC): 4 Lying-Sitting on Side/Bed(QC): 4 Sit to Stand (QC): 4 Rollin Chair/Byi-zy-Chgse Xfer(QC): 4 Gait (FIM): 2 Distance: 50' Walk 50ft with 2 Turns (QC): 4 Gait Level of Assist: 5 Gait Assistive Device: FWW OT Harp Regulator Goals Harp Regulator Goals Time Frame: Dec 08, 2018 Eating (FIM): 5 (not met) Eating (QC): 5 (not met) Groomin (not met) Oral Hygiene (QC): 5 (not met) Bathing(FIM): 5 (not met) Upper Body Dressing(FIM): 5 (not met) Lower Body Dressing(FIM): 5 (not met) Toileting(FIM): 5 (not met) Toileting Hygiene (QC): 5 (not met) Toilet/Commode Transfer(FIM): 5 (not met) Toilet/Commode Transfer (QC): 5 (not met) Additional Goals: 1-Demonstrate ADL Tasks, 2-Verbalize Understanding, 3- ImproveStrength/Raghavendra 1=Demonstrate adherence to instructed precautions during ADL tasks. 2=Patient will verbalize/demonstrate understanding of assistive devices/modifications for ADL. 3=Patient will improve strength/tolerance for activity to enable patient to perform ADL's. MARCELLUS HOBBS OT Nov 28, 2018 15:08
[2018-11-28 17:25] VITALS: BP 144/73
[2018-11-28] MEDS ORDERED: ALPRAZolam 0.25 MG (XANAX) TAB PO SCH (21:00)
[2018-11-29 06:00] VITALS: BP 165/73
[2018-11-29] MEDS: morphine INJ 4 MG/ML 1 ML (VIAL/SYRINGE) IV PRN ×2 (09:57→11:34)
--- NOTE | 2018-11-29 12:48 | Progress Note (SOAP) ---
Subjective Date Seen by a Provider: Nov 29, 2018 Time Seen by a Provider: 12:45 Subjective/Events-last exam Fwup metastatic colon cancer. Having increased pain. Choked on pills this morning. Objective Exam Vital Signs Date Time Temp Pulse Resp B/P (MAP) Pulse Ox O2 Delivery O2 Flow Rate FiO2 11/29/18 09:00 Room Air 11/29/18 06:00 98.6 117 18 165/73 (103) 95 Room Air 11/28/18 20:00 Room Air 11/28/18 17:25 97.6 101 16 144/73 (96) 95 Room Air I & O 11/29/18 07:00 Intake Total 475 ml Output Total 570 ml Balance -95 ml Capillary Refill : General Appearance: Chronically ill Neurologic/Psychiatric: Other (lethargic) Skin: Jaundice Assessment/Plan Assessment/Plan Assess & Plan/Chief Complaint 1. Metastatic Colon Cancer--on comfort care--start Morphine PINION STAKER and stop all oral meds NEMESIO CAMACHO DO Nov 29, 2018 12:47
--- NOTE | 2018-11-29 13:33 | NUR ---
provided prayer and Communion.
--- NOTE | 2018-11-29 13:45 | NUR ---
Palliative Care Rn in to see patient. She is weaker appearing today. Pain not well controlled and starting a ASSEMBLY MACHINE SET UP MECHANIC. LE is edematous with strong pulses. Family at bedside and have no needs at this time.
[2018-11-29] MEDS ORDERED: NS IV 1000 ML 1,000 ML ONE (14:59)
[2018-11-29] MEDS: morphine PCA 100 MG/100 ML BAG IV SCH (15:05)
[2018-11-29 17:48] VITALS: BP 143/73
[2018-11-30 05:57] VITALS: BP 149/77
--- NOTE | 2018-11-30 14:00 | NUR ---
Palliative Care RN talked to Dr. Kohli about continued POC. We discussed need to pursue discharge to home with in home caregivers and hospice or facility with hospice. It was previously decided to have [facility] come and talk to daughter, Marilia but postponed for SWB admission. Now that patient is on CCMO with no decline noted other than increase in pain, the need to be thinking to discharge is again discussed . I have sent clinical information to [facility] with request for family visit before 3 p.m. on this date. It is expected if patient has no significant decline that she could discharge tomorrow if NOT continuing the CADD. If doctor orders CADD then the discharge would be on Tuesday due to delivery of the medication etc. I have with daughter Marilia and she is aware of the the plan.
--- NOTE | 2018-11-30 14:44 | NUR ---
provided prayer and Communion.
--- NOTE | 2018-11-30 15:45 | NUR ---
Palliative Care Rn called back to patient room to speak with the family regarding the POC for discharge. They have been investigating options for discharge location and have spoken to [facility] in [place]. They have a hospice room that they rent out by the day(currently occupied) but may be able to utilize a different room for the same purpose. Availability of Tuesday for occupancy likely. [facility] recommends a change to Fentanyl patch with oral immediate dosing of Morphine Roxanol due to having a peripheral line only with no one to manage around the clock. Pharmacy to calculate the equivalent Duragesic patch dose with initiation over the weekend so that when she discharges she will be well managed. Will communicate this to Dr. Kohli.
--- NOTE | 2018-11-30 16:30 | NUR ---
FIELD APPLICATIONS SPECIALIST MORPHINE DOSAGE CHANGED TO 1 MG CONT. AND 0.5 MG EVERY 30 MIN. AND 20 MG LOCKOUT IN 4 HOURS. FIELD APPLICATIONS SPECIALIST SETTINGS CHECKED WITH MARY FABIAN AND THIS NURSE.
--- NOTE | 2018-11-30 16:58 | Progress Note-Standard ---
Standard Progress Note Progress Notes/Assess & Plan Date Seen by a Provider: Nov 30, 2018 Time Seen by a Provider: 16:55 Progress/Assessment & Plan 73-year-old female with extensive metastatic colon cancer to the liver. Performance status is 4 by Zubrod scale. Patient and family has decided to proceed with best supportive care only. All her medications have been discontinued except morphine 1 mg as needed for pain control. Per nursing staff she has used 11 mg of morphine in the last 10 hours. She is somnolent but easily arousable. Family present in room. Discussed the option of continuous infusion of morphine rather than boluses and they are agreeable. I will start her on morphine 1 mg/h continuous infusion with 0.5 mg bolus every 30 minutes as needed. Titrate the dose as needed for comfort. She is terminal. Will follow patient with you. TERESITA SEN Nov 30, 2018 16:58
[2018-11-30 18:00] VITALS: BP 157/83
[2018-12-01] MEDS ORDERED: NS IV 1000 ML 1,000 ML ONE (00:14)
[2018-12-01] MEDS: NS IV 1000 ML 1,000 ML IV SCH (00:20)
[2018-12-01 06:00] VITALS: BP 146/72
--- NOTE | 2018-12-01 10:08 | Progress Note (SOAP) ---
Subjective Date Seen by a Provider: Nov 30, 2018 Time Seen by a Provider: 12:35 Subjective/Events-last exam Fwup metastatic colon cancer. Doing well on morphine MANAGER OF INFORMATION--was more alert last night when had company. Objective Exam Vital Signs Date Time Temp Pulse Resp B/P (MAP) Pulse Ox O2 Delivery O2 Flow Rate FiO2 12/01/18 06:33 18 12/01/18 06:00 100.2 112 18 146/72 (96) 91 Room Air 11/30/18 21:00 Room Air 11/30/18 21:00 18 11/30/18 18:00 99.4 110 18 157/83 (107) 93 Room Air 11/30/18 16:00 18 I & O 12/01/18 07:00 Intake Total 300 ml Output Total 625 ml Balance -325 ml Capillary Refill : General Appearance: No Apparent Distress Respiratory: Lungs Clear Cardiovascular: Regular Rate, Rhythm Neurologic/Psychiatric: Other (currently sleeping) Skin: Warm/Dry Assessment/Plan Assessment/Plan Assess & Plan/Chief Complaint 1. Metastatic Colon Cancer--on comfort care--continue morphine MANAGER OF INFORMATION, Palliative care and family checking in to DC plans for possibly Tuesday with Hospice NEMESIO CAMACHO DO Dec 01, 2018 10:08
--- NOTE | 2018-12-01 10:30 | Progress Note (SOAP) ---
Subjective Date Seen by a Provider: Dec 01, 2018 Time Seen by a Provider: 10:08 Subjective/Events-last exam Fwup metastatic colon cancer. Seems comfortable with morphine RECREATIONAL DIRECTOR. at bedside and states she has been sleeping and not responsive since last night. Occasional long pause in breathing but not consistent. Objective Exam Vital Signs Date Time Temp Pulse Resp B/P (MAP) Pulse Ox O2 Delivery O2 Flow Rate FiO2 12/01/18 06:33 18 12/01/18 06:00 100.2 112 18 146/72 (96) 91 Room Air 11/30/18 21:00 Room Air 11/30/18 21:00 18 11/30/18 18:00 99.4 110 18 157/83 (107) 93 Room Air 11/30/18 16:00 18 I & O 12/01/18 07:00 Intake Total 300 ml Output Total 625 ml Balance -325 ml Capillary Refill : General Appearance: No Apparent Distress Respiratory: Other (occasional apneic episode but otherwise respirations fairly regular) Neurologic/Psychiatric: Other (sleeping ) Assessment/Plan Assessment/Plan Assess & Plan/Chief Complaint 1. Metastatic Colon Cancer--on comfort care--continue morphine RECREATIONAL DIRECTOR, plan is for DC to [facility] with hospice on Tuesday and will likely do fentanyl patch with roxanol but will see how status does through today and NEMESIO Craig DO Dec 01, 2018 10:30
[2018-12-01] MEDS: LORazepam INJ 2 MG/ML (ATIVAN) VIAL IVP PRN ×3 (11:42→19:30)
[2018-12-02] MEDS: morphine PCA 100 MG/100 ML BAG IV SCH ×3 (01:10→13:18)
[2018-12-02] MEDS: LORazepam INJ 2 MG/ML (ATIVAN) VIAL IVP PRN ×5 (03:23→20:18)
[2018-12-02] MEDS: NS IV 1000 ML 1,000 ML IV SCH (04:35)
--- NOTE | 2018-12-02 08:18 | NUR ---
PT'S FAMILY IS EXPRESSING CONCERNS OF PT STILL BEING IN PAIN DUE TO FACIAL GRIMACING AND IS WONDERING HER MORPHINE UPPER MARKER COULD BE INCREASED FOR MORE COMFORT. DR. BROWN NOTIFIED OF FAMILIES CONCERNS; NEW ORDER TO INCREASE THE CONTINUOUS INFUSION TO 3MG AND TO GIVE A 5MG BOLUS.
--- NOTE | 2018-12-02 08:24 | NUR ---
CADD PUMP ONLY ALLOWS FOR A 4MG BOLUS. DR. BROWN NOTIFIED AND WAS OKAY WITH JUST THE 4MG.
--- NOTE | 2018-12-02 16:18 | NUR ---
THIS RN CHANGED PT'S MORPHINE BONE CHAR PULLER DOSAGES. KARI FABIAN WITNESSED.
--- NOTE | 2018-12-02 22:53 | NUR ---
Pt passed and Morphine PARTS FABRICATOR discontinued with 15cc wasted witnesssed by Nini FABIAN. IVF discontiued. Dr. Powers notified of .
--- NOTE | 2018-12-02 23:40 | NUR ---
Family notified home and home called nurse and was informed that we are not ready to release pt and they stated they would call back. home showed up at [id number] and instrument assembly supervisor Leelee FABIAN told him we were not ready. home went ahead and went to room and told family reason for delay and family stated they did not want to be organ donor. Leelee called [facility] bank to check on status of organ donation. Family upset and pastoral care spoke with the family. Body released to home.
== END 2018-12-02 22:07 | disposition expired | DRG 690 ==
LOC: 4TH 11:30
PROVIDERS: ADMIT Family Medicine; ATTEND Family Medicine
DX: N39.0 Urinary tract infection, site not specified (principal); C78.7 Secondary malignant neoplasm of liver and intrahepatic bile duct; C78.01 Secondary malignant neoplasm of right lung; C78.02 Secondary malignant neoplasm of left lung; G89.3 Neoplasm related pain (acute) (chronic); R64 Cachexia; I10 Essential (primary) hypertension; Z66 Do not resuscitate; Z51.5 Encounter for palliative care; K72.90 Hepatic failure, unspecified without coma; R00.0 Tachycardia, unspecified; D64.9 Anemia, unspecified; R53.81 Other malaise; F17.210 Nicotine dependence, cigarettes, uncomplicated; E78.00 Pure hypercholesterolemia, unspecified; K21.9 Gastro-esophageal reflux disease without esophagitis; M19.91 Primary osteoarthritis, unspecified site; G93.89 Other specified disorders of brain; Z85.038 Personal history of other malignant neoplasm of large intestine; Z92.21 Personal history of antineoplastic chemotherapy; Z90.49 Acquired absence of other specified parts of digestive tract; Z95.828 Presence of other vascular implants and grafts
CPT/HCPCS: 36415; 80053; 85025